=== PATIENT | male | born 1970 | race Caucasian/White ===

== ENCOUNTER 2018-11-06 10:19 | Outpatient (REF) | payer MEDICAID, SELFPAY ==
[2018-11-06 12:17] LABS: ALT 37 U/L (12-78); AST 18 U/L (15-37); Albumin 3.7 g/dL (3.4-5.0); Alkaline Phosphatase 68 U/L (46-116); Anion Gap 8.3 mmol/L (3-11); BUN 14 mg/dL (7-18); Bilirubin, Total 0.3 mg/dL (0.2-1.0); CO2 29.7 mmol/L (21.0-32.0); CREATININE 0.93 mg/dL (0.70-1.30); Calcium 8.9 mg/dL (8.5-10.1); Chloride 106 mmol/L (98-107); Cholesterol 208 mg/dL (50-200); Glucose 140 mg/dL (70-100); HDL Cholesterol 38 mg/dL (40-60); LDL CHOLESTEROL 141 mg/dL (<100); Potassium 4.1 mmol/L (3.5-5.1); Sodium 144 mmol/L (136-145); Total Protein 7.1 g/dL (6.4-8.2); Triglyceride 131 mg/dL (30-150)
== END 2018-11-06 10:39 ==
LOC: NCHCN 10:19
PROVIDERS: PCP Nurse Practitioner Family; Visit Provider Nurse Practitioner Family
DX: Z13.220 Encounter for screening for lipoid disorders (principal); Z13.228 Encounter for screening for other metabolic disorders; Z00.00 Encounter for general adult medical examination without abnormal findings
CPT/HCPCS: 80053; 80061; 83721

== ENCOUNTER 2019-03-13 00:56 | Outpatient (CLI) | payer MEDICAID, SELFPAY ==
--- NOTE | 2019-03-13 07:29 | DI.CT_ITS ---
SYMPTOM/DIAGNOSIS: ABD PAIN R10.9, S/P HERNIA REPAIR, MESH COMING THROUGH SKIN ABDOMEN AND PELVIC CT: 03/13 CT examination of the abdomen and pelvis was performed with a bolus infusion of 100 cc Omnipaque 350 and ingestion of dilute barium. Images obtained through the lung bases are unremarkable. The liver, spleen and pancreas appear normal. Gallbladder and bile ducts are CT normal. Adrenals and kidneys are unremarkable. Abdominal aorta is of normal diameter and no major vascular abnormality seen. No abdominal or pelvic adenopathy. Appendix is normal. No evidence of diverticulitis or bowel obstruction. The patient has reportedly had prior ventral hernia repair. Examination is compared with previous examination of 04/11/17. Note is again made of nonspecific subcutaneous radiodensities at the level of the umbilicus unchanged in appearance in comparison with the previous examination and consistent with scarring. The ventral mesh appears essentially unchanged in position in comparison with the previous examination. No evidence of herniation of abdominal contents. CONCLUSION: Stable appearance of repaired ventral hernia from 04/11/2017.
[2019-03-13] MEDS: Omnipaque 350 MG/ML 100 ML BTL IV (09:41)
[2019-03-13] MEDS: Breeza Beverage 473 ML BTL PO ×2 (09:41→09:42)
[2019-03-13] MEDS: Omnipaque 350 MG/ML 50 ML BTL PO (09:41)
== END 2019-03-13 01:16 ==
PROVIDERS: PCP Nurse Practitioner Family; Visit Provider Surgery
DX: R10.9 Unspecified abdominal pain (principal); Z98.890 Other specified postprocedural states
CPT/HCPCS: 74177; J3490; Q9967

== ENCOUNTER 2019-07-10 07:49 | Observation (INO) | payer MEDICAID, SELFPAY ==
[2019-07-10] VITALS (48 sets, daily range): BP systolic 113–163; BP diastolic 65–95; PULSE 87–101; RESP 11–35; TEMP 36–36.5; O2SAT 88–97
--- NOTE | 2019-07-10 07:56 | W.ED.GENAD ---
Discharge Plan Discharge Details Chief Complaint: Chest Pain Admit Date/Time: 07/10/19 10:50 Admit Provider: Milagros Pascual Attending Provider: Milagros Pascual Primary Care Provider: Chely Olivera ED Provider: Mary Osman Discharge Data Discharge Date/Time-TO BE ENTERED AT DEPARTURE: 07/10/19 11:54 Medical Decision Making Patient 40-year-old male presents today, brought in via EMS, after being found unresponsive on the floor. Patient presents to [facility] and was found to be on the floor at 1 point he was late for morning meeting. There was evidence of patient having potentially fallen out of bed as the bedside table had been knocked over. Patient denies any new pain. No headache. Patient is also endorsing substernal chest discomfort. Reports that he has had this historically. Was given nitro and aspirin prior to arrival. Is denying any chest pain at this point. He denies any alcohol or drug abuse. EKG reviewed by Dr. Kaur. Patient is in sinus rhythm with a rate of 99. No acute ischemic changes noted. Patient denies any illicit drug use, recent alcohol. However, on review of his notes, he was snorting Lyrica. When I questioned him further he reports is been over a month since he last used any Lyrica. This also started Concerta but states that was a one-time thing. Denies using this at all recently. He has not had any episodes like this since stopping the Lyrica. I have been questioning if this may be a seizure associated with abrupt cessation of Lyrica usage this seems to get a long period of time after having stopped. Review of the chart also shows that the patient was referred to [facility] for back pain. Patient is endorsing severe chronic pain which is making it difficult for him to sleep. Patient has not been taking his medications recently, reports that he did not have his metformin refilled and has not been taking this. On exam, patient is responsive, alert and oriented x3. appears fatigued. Normal cardiovascular exam. Neuro exam is intact. Not see any evidence of trauma at this time. No hemotympanum, pupils are equal round and reactive. No ecchymosis Glucose 300. My differential, initial concern is for possible seizure. However, this would not explain the substernal chest discomfort. Also considered cardiac or pulmonary source versus other including toxicologic or infectious. Plan for imaging and labs. Discussed CT with the radiologist. He advised that there is no acute abnormalities in the patient's head CT but does note a bony density in the right frontal sinus. Initially, he had question of this may be an osteoma but after discussing the patient's long history of snorting medications, he advises more consistent with a sinus lift. Review of the x-ray has been concerned for pneumonia. Will begin antibiotic treatment, hydrate the patient. As he is hypoxic and short of breath, I have considered admission. Patient does feel slightly improved after nebulizer. He continues to feel short of breath and does require O2. Patient down to 87% when on room air. Labs reviewed. No leukocytosis. Patient is anemic. D-dimer is within normal limits. No gap, normal electrolytes. Glucose is 320, A1c 9.7. Troponin is less than 0.05. No ketones in the urine. Over thousand milligrams per deciliter glucose in the urine. Patient is positive for tricyclic antidepressants in his UDS, otherwise negative, negative ethyl alcohol. Patient is on amitriptyline has been taking his medication as prescribed per his report. Consulted with hospitalist is requesting CPK. She is questioning, as MRI could potentially be a seizure, and is wanting to determine disposition to floor unit or ICU. CPK normal. Contacted the hospitalist again who agrees to admission for continued monitoring and evaluation. HPI General Mode of arrival: EMS. Date/Time Provider Initiated Documentation: 07/10/19 07:51. Limitations to Documentation: altered mental status (lapse of memory, clear currently). Information obtained by: patient, EMS and RN notes reviewed. History of Present Illness 48 year old M presents to the emergency department with the chief complaint of chest pain, cough, SOB, ALCALA, described as mild, with intensity rated at 3. Quality is described as aching, and is localized to the chest. Patient reports no radiation. Patient started experiencing this day(s) and it has been constant. No relieving factors improve symptom(s), No exacerbating factors reported . Patient notes chest pain, cough, headaches, loss of appetite, nausea/vomiting (endorses nausea, no vomiting) and shortness of breath; denies diaphoresis, fever/chills, rash and weakness. Patient did receive the following treatments prior to arrival, other (given nitro and ASA by EMS) Related Data Home Medications Medication Instructions Recorded Confirmed pregabalin 150 mg capsule 150 mg PO BID 03/04/19 07/10/19 amitriptyline 25 mg tablet 25 mg PO QHS 03/07/19 07/10/19 albuterol sulfate 2 puff INHALATION Q6H PRN 07/10/19 07/10/19 bupropion HCl 150 mg PO BID 07/10/19 07/10/19 metformin 500 mg PO DAILY 07/10/19 07/10/19 salmeterol 1 inh INHALATION BID 07/10/19 07/10/19 Allergies Allergy/AdvReac Type Severity Reaction Status Date / Time No Known Allergies Allergy Verified 07/10/19 08:08 General Stated Complaint: Chest Pain RIVKA: 3 Review of Systems Constitutional Constitutional: Reports as per HPI, Denies chills, Denies fever(s), Reports headache(s), Reports lethargy and Reports poor appetite Eyes Eyes: Denies change in vision ENT Ears, Nose, Mouth, and Throat: Denies dizziness and Reports headache(s) Cardiovascular Cardiovascular: Reports as per HPI, Reports chest pain, Reports chest pain at rest, Denies chest pain with activity, Denies pedal edema, Reports leg ulcers (chronic wounds on toes), Denies leg edema, Reports lightheadedness, Reports dyspnea and Reports dyspnea on exertion Respiratory Respiratory: Reports as per HPI, Reports chest congestion, Denies cough, Denies hemoptysis, Denies pain on inspiration, Denies pain with cough, Reports dyspnea, Reports dyspnea on exertion and Denies wheezing Gastrointestinal Gastrointestinal: Reports as per HPI, Denies abdominal pain, Denies diarrhea, Reports nausea and Denies vomiting Genitourinary Genitourinary: Denies system reviewed and no additional complaints, except as docu (denies change in urinary habits) Musculoskeletal Musculoskeletal: Reports as per HPI and Denies back pain Integumentary/Breasts Skin/Breast: Reports as per HPI and Denies rash Neurologic Neurologic: Reports as per HPI, Denies dizziness and Reports headache(s) Allergic/Immunologic Allergic/Immunologic: Denies wheezing [facility] Medical History (Updated 07/10/19 @ 18:00 by Milagros Pascual MD) COPD (chronic obstructive pulmonary disease) (Chronic) DJD (degenerative joint disease) (Chronic) GERD (gastroesophageal reflux disease) (Chronic) Hyperlipidemia (Acute) Hypertension (Chronic) Non-insulin dependent type 2 diabetes mellitus (Acute) Peripheral neuropathy (Acute) PVD (peripheral vascular disease) (Chronic) Tobacco abuse (Acute) Ventral hernia (Inactive) Surgical History (Updated 07/10/19 @ 17:43 by Milagros Pascual MD) H/O left knee surgery (Acute) History of open reduction and internal fixation (ORIF) procedure (Acute) LLE S/P hardware removal (Acute) LLE S/P hernia repair (Acute) x2 at [facility]- 20 years ago Family History (Updated 07/10/19 @ 17:44 by Milagros Pascual MD) Mother Diabetes Hypertension Father Diabetes Hypertension Cancer lung Paternal Grandmother Diabetes Other Heart disease Social History Smoking/Tobacco Use Status: Current every day Tobacco Type: cigarettes Smoking packs per day: 1.5 Smoking cigarettes per day: 30.0 Years smoked: 20 Smoking pack-years: 30.00 Alcohol Intake: never Drug use: Never Substance use type: does not use Exam Const General: cooperative, healthy appearing, comfortable, no acute distress and well developed Nutritional Appearance: well nourished and obese Orientation: alert, awake and oriented x3 HENMT Head: normal to inspection Ears: hearing grossly normal bilaterally Mouth: mucous membranes dry (dry) Eyes General: appearance normal, both eyes and all related structures Visual Ko: normal visual ko by confrontation Alignment and Position: alignment normal Periorbital: periorbital findings normal Eyelids: eyelids normal Conjunctivae: conjunctivae normal Chest Chest: normal inspection of the chest, normal palpation of entire chest wall and no crepitus Resp Effort & Inspection: normal respiratory effort, able to speak in complete sentences and no respiratory distress Auscultation: clear to auscultation bilaterally, no rales, no rhonchi and no wheezes Cardio Rate: regular rate Rhythm: regular rhythm Heart Sounds: S1 normal and S2 normal GI Inspection: normal to inspection, no edema and non-distended Palpation: soft, no hepatosplenomegaly, not firm, no guarding, not rigid and nontender Auscultation: normal bowel sounds Back/Spine/Pelvis Back: no CVA tenderness Thoracic/Lumbar Spine: thoracic and lumbar spine normal to inspection Skin General skin exam: no rashes or lesions noted Trauma: no lacerations or abrasions Neuro General: alert, awake and oriented x3 Cognition: normal cognition Speech: speech normal Gait: normal gait Extrem General: normal to inspection, normal capillary refill, no pedal edema, no calf tenderness and normal gait Right lower extremity: abnormal to inspection (wound to second toe, appears chroinic) Left lower extremity: abnormal to inspection (Posttraumatic scarring) Psych Appearance: grossly normal and well kempt Mental Status: mental status grossly normal Speech and Movement: speech and movement normal Course Vital Signs Vital signs: Vital Signs Temperature 36.5 C 07/10/19 07:50 Pulse 97 H 07/10/19 07:50 Respiratory Rate 28 H 07/10/19 07:50 Blood Pressure 163/95 H 07/10/19 07:50 Pulse Oximetry 90 L 07/10/19 07:50 Temperature 36.5 C 07/10/19 07:50 Temperature Source Temporal Artery Scan 07/10/19 07:50 Pulse 97 H 07/10/19 07:50 Respiratory Rate 28 H 07/10/19 07:50 Blood Pressure 163/95 H 07/10/19 07:50 Blood Pressure Position Supine 07/10/19 07:50 Pulse Oximetry 90 L 07/10/19 07:50 Oxygen Delivery Method Room Air 07/10/19 07:50 Oxygen Flow Rate 0 07/10/19 07:50 Pain Level 3 07/10/19 07:50
[2019-07-10 08:27] LABS: Abs Immature Grans 0.02 k/cumm (0.0-0.09); Absolute Basophil Count 0.02 k/cumm (0.0-0.2); Absolute Eosinophil Count 0.07 k/cumm (0.0-0.7); Absolute Lymphocyte Count 1.28 k/cumm (1.2-3.4); Absolute Monocyte Count 0.45 k/cumm (0.11-0.7); Absolute Neutrophil Count 6.15 k/cumm (1.2-6.7); Basophils % 0.3; Eosinophils % 0.9; HCT 51.3 % (40.0-50.0); HGB 17.5 g/dL (13.5-17.5); Immature Grans % 0.3 %; Mean Corp. HGB Concentration 34.1 g/dL (32.0-36.0); Mean Corpuscular Hemoglobin 28.7 pg (27.0-33.0); Mean Corpuscular Volume 84.1 fL (80-95); Monocytes % 5.6; Neutrophils % 76.9; Platelet Count 192 x1000/uL (130-400); RBC Distribution Width 15.8 % (11.8-14.1); White Blood Cell Count 7.99 k/cumm (4.4-10.8)
[2019-07-10 08:44] LABS: Anisocytosis 1+; Polychromasia Present
[2019-07-10 08:45] LABS: ALT 39 U/L (16-63); AST 15 U/L (15-37); Albumin 3.9 g/dL (3.4-5.0); Alkaline Phosphatase 87 U/L (46-116); Anion Gap 10.4 mmol/L (3-11); BUN 14 mg/dL (7-18); Bilirubin, Total 0.5 mg/dL (0.2-1.0); CO2 28.6 mmol/L (21.0-32.0); CREATININE 0.79 mg/dL (0.70-1.30); Chloride 100 mmol/L (98-107); Diff Comment RBC Morph Reviewed; Glucose 320 mg/dL (74-106); Magnesium 1.8 mg/dL (1.8-2.4); Potassium 3.8 mmol/L (3.5-5.1); Sodium 139 mmol/L (136-145); Total Protein 8.2 g/dL (6.4-8.2); Troponin I < 0.05 ng/Ml (<0.06)
--- NOTE | 2019-07-10 08:46 | DI.RAD_ITS ---
EXAM: XR CHEST 2V PA LATERAL CLINICAL HISTORY: cough, SOB TECHNIQUE: COMPARISON: No exams were available for comparison FINDINGS: The heart is not enlarged. No focal lobar consolidation but there is is a suggestion of patchy incre ased intrapulmonary markings in the perihilar region bilaterally, consider viral pneumonia or broncho pneumonia. No pleural effusion. No pneumothorax. Mediastinal contour is grossly unremarkable. IMPRESSION: Question perihilar infiltrates, consider viral pneumonia or bronchopneumonia.
--- NOTE | 2019-07-10 08:46 | DI.CT_ITS ---
EXAM: CT HEAD WO CLINICAL HISTORY: ALCALA, AMS TECHNIQUE: Noncontrast cranial CT was performed. COMPARISON: No exams were available for comparison FINDINGS: Ventricular system is normal in appearance. No evidence of acute intracranial hemorrhage, mass eff ect, or midline shift. The orbital structures appear intact. Incidental note is made of right front al osteoma versus Sinolith. Otherwise paranasal sinuses and mastoid air cells appear clear as visual ized. Temporal bone structures appear intact. IMPRESSION: No evidence of acute intracranial process.
[2019-07-10 09:08] LABS: D-Dimer 303 ng/mlFEU (<500)
[2019-07-10] MEDS: Albuterol/Ipratropium 3 ML UPD VIAL UPD ×3 (09:08→19:48)
[2019-07-10 09:15] LABS: ETHANOL BLOOD < 3.0 mg/dL (<3)
[2019-07-10] MEDS: Normal Saline 1,000 ML 1000 ML IV (09:25)
[2019-07-10 09:28] LABS: Bilirubin Negative (Negative); Blood Negative (Negative); Clarity Clear (Clear); Glucose >=1000 mg/dL (Negative); Ketones Negative (Negative); Leukocyte Esterase Negative (Negative); Nitrite Negative (Negative); Urobilinogen 0.2 EU/dL (Up TO 0.2)
[2019-07-10] MEDS: cefTRIAXone 1 GM/50 ML BAG IVPB (09:38)
[2019-07-10] MEDS: Doxycycline Hyclate 100 MG CAP PO (09:38)
[2019-07-10 09:48] LABS: Hemoglobin A1C 9.7 % (3.8-5.6)
[2019-07-10] MEDS: Nicotine 21 MG/24 HR PATCH TD (09:48)
[2019-07-10 10:10] LABS: *AMPHETAMINES SCREEN URINE Negative (Negative); *BARBITURATES SCREEN URINE Negative (Negative); *BENZODIAZEPINES SCREEN URINE Negative (Negative); Cannabinoids THC Negative (Negative); Cocaine Screen,Urine Negative (Negative); METHADONE URINE SCREEN Negative (Negative); OPIATES URINE SCREEN Negative (Negative)
[2019-07-10 10:13] LABS: Tricyclic Antidepressants POSITIVE (Negative)
[2019-07-10 10:33] LABS: Creatine Kinase 137 U/L (39-308)
[2019-07-10 11:40] LABS: Troponin I < 0.05 ng/Ml (<0.06)
[2019-07-10] MEDS: Enoxaparin 40 MG/0.4 ML SYR SC (13:03)
[2019-07-10] MEDS: Insulin Aspart 300 UNITS/3 ML PEN SC ×3 (13:04→22:28)
[2019-07-10] MEDS: Normal Saline 1,000 ML 150 ML IV ×2 (13:05→19:36)
--- NOTE | 2019-07-10 17:32 | HPE_ITS ---
Date of service: 07/10/19 Time of Service: 16:45 Assessment and Plan Assessment and plan (1) CAP (community acquired pneumonia): Status: Acute Assessment and plan: Treat with empiric ceftriaxone, doxycycline, antitussives, steroids, nebs. Await results of blood and sputum cultures. (2) Acute exacerbation of chronic obstructive pulmonary disease (COPD): Status: Acute Assessment and plan: With hypoxia. As above - wean O2 as tolerated (3) Syncope and collapse: Status: Acute Assessment and plan: Likely vaso-vagal/post-tussive. No ACS. Monitor on tele. Obtaining echo. (4) Peripheral neuropathy: Status: Acute Assessment and plan: Trial gabapentin (5) Non-insulin dependent type 2 diabetes mellitus: Status: Acute Assessment and plan: Hold metformin. Cover with SSI, carb consistent diet (6) DVT prophylaxis: Status: Acute Assessment and plan: Lovenox (7) Discharge planning issues: Status: Acute Assessment and plan: Full code History of Present Illness History of Present Illness Chief Complaint: I don't know how I got here Narrative: Mr Swan is a 48 year old male with PMHx of non-oxygen dependent COPD, NIDDM2 with neuropathy, hypertension, GERD, and PVD, who was found this morning unresponsive on the floor by one of the residents of his intermediate house. The last thing he remembers going to bed last night. He does not have a history of seizures, had not bitten his tongue or had incontinence. He has syncopized after coughing in the past. The patient states that he has been sick for a couple of weeks, describes subjective fevers, chills, runny nose, sore throat, cough productive of brownish sputum, shortness of breath, abdominal pain from coughing. His other complaints are chest pain that he had yesterday for about an hour on the left side of his chest which felt like burning. He also reports sondra re pain from his neuropathy for which he used to take lyrica, but it was discontinued about a month ago because he was abusing it and snorting it. The patient denies any other substance abuse issues and states he had not snorted lyrica in a month. He continues to smoke up to 2 ppd. In the ED, he was found to be hypoxic with O2 sats of 88% on room air. He was found to have perihilar infiltrates on CXR. We were asked to admit the patient for treatment of pneumonia and COPD exacerbation with hypoxia following a likely syncopal event. Review of Systems Narrative: 12 systems reviewed. Pertinent positives and negatives are as per HPI. [facility] Medical History (Updated 07/10/19 @ 18:00 by Milagros Pascual MD) COPD (chronic obstructive pulmonary disease) (Chronic) DJD (degenerative joint disease) (Chronic) GERD (gastroesophageal reflux disease) (Chronic) Hyperlipidemia (Acute) Hypertension (Chronic) Non-insulin dependent type 2 diabetes mellitus (Acute) Peripheral neuropathy (Acute) PVD (peripheral vascular disease) (Chronic) Tobacco abuse (Acute) Ventral hernia (Inactive) Surgical History (Updated 07/10/19 @ 17:43 by Milagros Pascual MD) H/O left knee surgery (Acute) History of open reduction and internal fixation (ORIF) procedure (Acute) LLE S/P hardware removal (Acute) LLE S/P hernia repair (Acute) x2 at [facility]- 20 years ago Family History (Updated 07/10/19 @ 17:44 by Milagros Pascual MD) Mother Diabetes Hypertension Father Diabetes Hypertension Cancer lung Paternal Grandmother Diabetes Other Heart disease Social History Smoking/Tobacco Use Status: Current every day Tobacco Type: cigarettes Smoking packs per day: 1.5 Smoking cigarettes per day: 30.0 Years smoked: 20 Smoking pack-years: 30.00 Alcohol Intake: never Drug use: Never Substance use type: does not use Meds Home Medications and Allergies Home Medications Medication Instructions Recorded Confirmed Type pregabalin 150 mg capsule 150 mg PO BID 03/04/19 07/10/19 History amitriptyline 25 mg tablet 25 mg PO QHS 03/07/19 07/10/19 History albuterol sulfate 2 puff INHALATION Q6H PRN 07/10/19 07/10/19 History bupropion HCl 150 mg PO BID 07/10/19 07/10/19 History metformin 500 mg PO DAILY 07/10/19 07/10/19 History salmeterol 1 inh INHALATION BID 07/10/19 07/10/19 History Allergies Allergy/AdvReac Type Severity Reaction Status Date / Time No Known Allergies Allergy Verified 07/10/19 08:08 Exam Narrative Exam Narrative: General: Very pleasant obese male, appears sick, no visible dyspnea/tachypnea Neurological: A&Ox3, no focal deficits Psychiatric: mildly anxious Skin: no bruises/rashes; sanders HEENT: Atraumatic, normocephalic, EOMI, dry MM, mild pharyngeal erythema, no submandibular or cervical lymphadenopathy, no goiter or JVD, large neck diameter Cardiovascular: RRR, no m/r/g Lungs: rhonchi on expiration B Gastrointestinal: soft, nontender, nondistended Genitourinary: deferred Extremities: no e/c/c BLE's, 2+ pedal pulses B Results Imaging Additional studies: CXR: Question perihilar infiltrates, consider viral pneumonia or bronchopneumonia. CT head: No evidence of acute intracranial process. EKG: HR 99, NSR, nonspecific ST-T changes Labs Result diagrams: 07/10/19 07:42 07/10/19 07:42 Labs: Laboratory Results - last 24 hr 07/10/19 07/10/19 07/10/19 07:42 07:42 07:42 WBC 7.99 RBC 6.10 H Hgb 17.5 Hct 51.3 H MCV 84.1 MCH 28.7 MCHC 34.1 RDW 15.8 H Plt Count 192 MPV 9.0 Immature Gran % 0.3 Neutrophils % 76.9 Lymphocytes % 16.0 Monocytes % 5.6 Eosinophils % 0.9 Basophils % 0.3 Absolute Neutrophils 6.15 Absolute Lymphocytes 1.28 Absolute Monocytes 0.45 Absolute Eosinophils 0.07 Absolute Basophils 0.02 Differential Comment Rbc morph reviewed RBC Morphology See below Polychromasia Present Anisocytosis 1+ D-Dimer 303 Sodium 139 Potassium 3.8 Chloride 100 Carbon Dioxide 28.6 Anion Gap 10.4 BUN 14 Creatinine 0.79 Estimated GFR/1.73 m2 >= 60.00 Glucose 320 H Hemoglobin A1c Calcium 9.0 Magnesium 1.8 Total Bilirubin 0.5 AST 15 ALT 39 Alkaline Phosphatase 87 Creatine Kinase Troponin I < 0.05 Total Protein 8.2 Albumin 3.9 Urine Color Urine Clarity Urine pH Ur Specific Hermleigh Urine Protein Urine Ketones Urine Blood Urine Nitrite Urine Bilirubin Urine Urobilinogen Ur Leukocyte Esterase Urine Glucose Urine Opiates Screen Urine Methadone Screen Ur Barbiturates Screen Ur Tricyclics Screen Ur Amphetamines Screen U Benzodiazepines Scrn Urine Cocaine Screen Ur THC Screen Ethyl Alcohol Path Cons Comment 07/10/19 07/10/19 07/10/19 07:42 07:42 08:05 WBC RBC Hgb Hct MCV MCH MCHC RDW Plt Count MPV Immature Gran % Neutrophils % Lymphocytes % Monocytes % Eosinophils % Basophils % Absolute Neutrophils Absolute Lymphocytes Absolute Monocytes Absolute Eosinophils Absolute Basophils Differential Comment RBC Morphology Polychromasia Anisocytosis D-Dimer Sodium Potassium Chloride Carbon Dioxide Anion Gap BUN Creatinine Estimated GFR/1.73 m2 Glucose Hemoglobin A1c 9.7 H Calcium Magnesium Total Bilirubin AST ALT Alkaline Phosphatase Creatine Kinase 137 Troponin I Total Protein Albumin Urine Color Urine Clarity Urine pH Ur Specific Herm[place] Urine Protein Urine Ketones Urine Blood Urine Nitrite Urine Bilirubin Urine Urobilinogen Ur Leukocyte Esterase Urine Glucose Urine Opiates Screen Urine Methadone Screen Ur Barbiturates Screen Ur Tricyclics Screen Ur Amphetamines Screen U Benzodiazepines Scrn Urine Cocaine Screen Ur THC Screen Ethyl Alcohol < 3.0 Path Cons Comment 07/10/19 07/10/19 07/10/19 09:11 09:11 11:03 WBC RBC Hgb Hct MCV MCH MCHC RDW Plt Count MPV Immature Gran % Neutrophils % Lymphocytes % Monocytes % Eosinophils % Basophils % Absolute Neutrophils Absolute Lymphocytes Absolute Monocytes Absolute Eosinophils Absolute Basophils Differential Comment RBC Morphology Polychromasia Anisocytosis D-Dimer Sodium Potassium Chloride Carbon Dioxide Anion Gap BUN Creatinine Estimated GFR/1.73 m2 Glucose Hemoglobin A1c Calcium Magnesium Total Bilirubin AST ALT Alkaline Phosphatase Creatine Kinase Troponin I < 0.05 Total Protein Albumin Urine Color Yellow Urine Clarity Clear Urine pH 6.0 Ur Specific Hermleigh 1.020 Urine Protein Negative Urine Ketones Negative Urine Blood Negative Urine Nitrite Negative Urine Bilirubin Negative Urine Urobilinogen 0.2 Ur Leukocyte Esterase Negative Urine Glucose >=1000 H Urine Opiates Screen Negative Urine Methadone Screen Negative Ur Barbiturates Screen Negative Ur Tricyclics Screen Positive A Ur Amphetamines Screen Negative U Benzodiazepines Scrn Negative Urine Cocaine Screen Negative Ur THC Screen Negative Ethyl Alcohol Path Cons Comment Last Vital Signs Temp 36.0 C L 07/10/19 15:36 Pulse 87 07/10/19 15:36 Resp 18 07/10/19 15:36 BP 124/72 07/10/19 15:36 Pulse Ox 95 07/10/19 15:36
[2019-07-10] MEDS: Pantoprazole 40 MG VIAL IVP (18:46)
[2019-07-10] MEDS: Normal Saline Flush 10 ML SYR IVP (18:47)
[2019-07-10] MEDS: methylPREDNISolone SUCC 125 MG VIAL 60 MG IVP (18:47)
--- NOTE | 2019-07-10 19:15 | CMPROGNOTE_ITS ---
- If Service Date Differs Date of service: 07/10/19 Time of Service: 19:15 Care Management Progress Note CM met with Satnam's case aide in the community (AMEYA), Basilio Bhatti ([phone]), who is listed on Satnam's HIPPA. 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 His field crop technical officer is Alton Davenport (also on HIPPA). Basilio would like to be updated on Satnam's medical status. Basilio reported that Satnam was found unconscious and unresponsive this morning at the [facility] and was transported to [facility] by ambulance. He reported that Satnam is a heavy smoker. He also reported that Satnam sees a chronic pain specialist, as well as a mental health and substance abuse counselor in the community, Claudia Diallo. Basilio will not be available after noon on Sunday, but if Satnam is discharged home he offered phone numbers to call to set up transport. The daytime transport number is [phone]. The after hours phone number is [phone].
--- NOTE | 2019-07-10 19:15 | PDOC.CMPRO ---
- If Service Date Differs Date of service: 07/10/19 Time of Service: 19:15 Care Management Progress Note CM met with Satnam's block and case maker in the community (AMEYA), Basilio Bhatti ([phone]), who is listed on Satnam's HIPPA. 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 His humane officer is Alton Davenport (also on HIPPA). Basilio would like to be updated on Satnam's medical status. Basilio reported that Satnam was found unconscious and unresponsive this morning at the [facility] and was transported to [facility] by ambulance. He reported that Satnam is a heavy smoker. He also reported that Satnam sees a chronic pain specialist, as well as a mental health and substance abuse counselor in the community, Claudia Diallo. Basilio will not be available after noon on Sunday, but if Satnam is discharged home he offered phone numbers to call to set up transport. The daytime transport number is [phone]. The after hours phone number is [phone].
[2019-07-10] MEDS: Budesonide/Formoterol 160/4.5 6 GM 60 PUFF INH IH (19:46)
[2019-07-10] MEDS: Gabapentin 100 MG CAP PO (19:47)
[2019-07-10] MEDS: Benzonatate 100 MG CAP PO (19:47)
[2019-07-10] MEDS: Pregabalin 50 MG CAP 150 MG PO (19:47)
[2019-07-10] MEDS: buPROPion-CR 150 MG TABCR PO (19:48)
[2019-07-10] MEDS: guaiFENesin 600 MG TABCR PO (19:48)
[2019-07-10 20:56] LABS: Troponin I < 0.05 ng/Ml (<0.06)
[2019-07-10] MEDS: DOXYCYCLINE 100 MG in Normal Saline 100 ML IVPB (22:27)
[2019-07-10] MEDS: Amitriptyline 25 MG TAB PO (22:29)
[2019-07-11] VITALS (12 sets, daily range): BP systolic 117–153; BP diastolic 64–84; PULSE 74–106; RESP 8–24; TEMP 35.6–36.6; O2SAT 91–98
[2019-07-11] MEDS: Albuterol/Ipratropium 3 ML UPD VIAL UPD ×4 (02:47→17:51)
[2019-07-11] MEDS: Normal Saline 1,000 ML 150 ML IV ×3 (02:48→17:50)
[2019-07-11] MEDS: methylPREDNISolone SUCC 125 MG VIAL 60 MG IVP ×2 (05:07→17:50)
[2019-07-11 07:10] LABS: Abs Immature Grans 0.02 k/cumm (0.0-0.09); Absolute Basophil Count 0.01 k/cumm (0.0-0.2); Absolute Eosinophil Count 0.01 k/cumm (0.0-0.7); Absolute Lymphocyte Count 0.63 k/cumm (1.2-3.4); Absolute Monocyte Count 0.12 k/cumm (0.11-0.7); Absolute Neutrophil Count 9.73 k/cumm (1.2-6.7); Basophils % 0.1; Eosinophils % 0.1; HCT 45.3 % (40.0-50.0); HGB 15.9 g/dL (13.5-17.5); Immature Grans % 0.2 %; Mean Corp. HGB Concentration 35.1 g/dL (32.0-36.0); Mean Corpuscular Hemoglobin 29.2 pg (27.0-33.0); Mean Corpuscular Volume 83.1 fL (80-95); Monocytes % 1.1; Neutrophils % 92.5; Platelet Count 175 x1000/uL (130-400); RBC 5.45 m/cumm (4.50-6.00); RBC Distribution Width 14.9 % (11.8-14.1); White Blood Cell Count 10.52 k/cumm (4.4-10.8)
[2019-07-11 07:21] LABS: Anion Gap 11.6 mmol/L (3-11); BUN 16 mg/dL (7-18); CO2 25.4 mmol/L (21.0-32.0); CREATININE 0.77 mg/dL (0.70-1.30); Calcium 8.7 mg/dL (8.5-10.1); Chloride 100 mmol/L (98-107); Glucose 317 mg/dL (74-106); Magnesium 1.8 mg/dL (1.8-2.4); Potassium 3.9 mmol/L (3.5-5.1); Sodium 137 mmol/L (136-145)
--- NOTE | 2019-07-11 07:30 | DI.US_ITS ---
APPROVED REPORT EXAM: Comprehensive 2D, Doppler, and color-flow Echocardiogram Patient Location: In-Patient Deep Submergence Vehicle Crewmember: Molly Shen RDCS (AE) Rhythm: NSR Indications: syncope vs. seizure Conclusion Left Ventricle : The left ventricle is normal. Left ventricular systolic function is normal. There is normal left ventricular wall thickness. There is normal LV segmental wall motion. The left ventricu lar diastolic function is normal. LVEF is 55-59%. Right Ventricle : The right ventricle is normal size. The right ventricular systolic function is norm al. Atria : Left atrium is mildly dilated. The right atrium size is normal. Aortic Valve : Aortic valve is trileaflet. Aortic valve leaflets are mildly thickened. No aortic regu rgitation is present. There is no aortic valvular stenosis. Mitral Valve : Mitral valve leaflets are mildl to moderately thickened. Trace mitral regurgitation. No evidence of mitral valve stenosis. Tricuspid Valve : The tricuspid valve is normal in structure. Trace tricuspid regurgitation. IVC: IVC is normal in size and collapses >50% with inspiration. There is no prior echocardiogram available for comparison. Wall motion Left Ventricle The left ventricle is normal. Left ventricular systolic function is normal. There is normal left vent ricular wall thickness. There is normal LV segmental wall motion. The left ventricular diastolic func tion is normal. LVEF is 55-59%. Right Ventricle The right ventricle is normal size. The right ventricular systolic function is normal. Estimated RVSP is 27-30mmHg Atria Left atrium is mildly dilated. The right atrium size is normal. Aortic Valve Aortic valve is trileaflet. Aortic valve leaflets are mildly thickened. There is no aortic valvular s tenosis. No aortic regurgitation is present. Mitral Valve Mitral valve leaflets are mildl to moderately thickened. No evidence of mitral valve stenosis. Trace mitral regurgitation. Tricuspid Valve The tricuspid valve is normal in structure. Trace tricuspid regurgitation. Great Vessels The aortic root size is normal. The ascending aorta size is normal. IVC is normal in size and collaps es >50% with inspiration. Pericardium A trivial pericardial effusion was identified 2D Dimensions IVSd 1.00 cm M: 0.6-1.2 LV EDV A2C 124.40 mL PWd 1.00 cm M: 0.6 - 1.2 LV EDV A4C 102.20 mL LVDd 5.60 cm M: 4.2 - 5.8 LA Volume Index A2C 22.91 mL/m2 LVDs 3.75 cm M: 2.5 - 4.0 LA Volume Index A4C 34.32 mL/m2 Aortic Root 3.55 cm M: 3.1 - 3.7 LA Volume Index Biplane 28.70 mL/m2 RVID Base (AP4) 3.60 cm (M/F) 2.5-4.1 LA Area A4C 21.40 cm2 RA Area A4C 16.81 cm2 LA Area A2C 17.89 cm2 LVOT 2.00 cm (M/F) 1.5-2.5 EF AP4 60.76 % Ascending Aorta 3.11 cm M: 2.6 - 3.4 EF AP2 53.22 % LVEF (Teich) 61.14 % EF BP 58.83 % LVEF (Noland's) 58.83 % M: 52 - 72 LV Volume 87.16 mL M: 62 - 150 LV Volume Index 37.56 mL/m2 M: 34 - 74 FS 33.20 % LV Diastology E/A Ratio 0.7 MED E' 0.09 (>0.07 m/s) LV E/e MED 7.75 (<14) LAT E' 0.09 (>0.1 m/s) LV E/e LAT 8.05 (<14) Pulm Vein s 0.50 m/s Aortic Valve LVOT Area 3.26 cm2 LVOT Vmax 0.91 m/s LVOT Mean Jair. 0.68 m/s LVOT Peak Gr. 3.3 mmHg LVOT Mean Gr. 2.0 mmHg AoV Area/ BSA (Vmax) 0.92 cm2/m2 LVOT VTI 0.167 m AoV Vmax 1.39 (0.5-1.3 m/s) ADAL Mean Jair. Index 0.90 cm2/m2 AoV Mean Jair. 1.07 m/s AoV Peak Grad 7.7 mmHg AoV Mean Grad 4.9 (<5 mmHg) AoV VTI 0.274 (0.18-0.25 m) AoV Area VTI 2.20 (2.5-4.5 cm2) AoV Area/ BSA (VTI) 0.95 cm/m2 Mitral Valve MV E Max Jair. 0.69 (0.4-1.3 m/s) MVA VTI 5.12 (4.0-6.0 cm2) MV A Velocity 0.95 (0.4-1.3 m/s) E/A Ratio 0.71 Pulmonary Valve RVOT Peak Gr. 2.07 mmHg RVOT Peak Jair. 0.72 m/s RVOT Mean Gr. 0.95 mmHg RVOT VTI 0.05 m Tricuspid Valve TR P. Velocity 2.61 m/s TV Regurg Vmax 2.61 m/s RAP Estimate 3.00 mmHg RVSP 30.19 mmHg TR P. Gradient 27.15 mmHg
[2019-07-11] MEDS: guaiFENesin 600 MG TABCR PO ×2 (09:00→19:29)
[2019-07-11] MEDS: buPROPion-CR 150 MG TABCR PO ×2 (09:00→19:29)
[2019-07-11] MEDS: Budesonide/Formoterol 160/4.5 6 GM 60 PUFF INH IH ×2 (09:00→19:28)
[2019-07-11] MEDS: cefTRIAXone 1 GM/50 ML BAG IVPB (09:00)
[2019-07-11] MEDS: Pregabalin 50 MG CAP 150 MG PO ×2 (09:00→19:30)
[2019-07-11] MEDS: Benzonatate 100 MG CAP PO ×3 (09:01→19:29)
[2019-07-11] MEDS: Insulin Aspart 300 UNITS/3 ML PEN SC ×4 (09:01→21:52)
[2019-07-11] MEDS: Gabapentin 100 MG CAP PO ×3 (09:01→19:29)
[2019-07-11] MEDS: DOXYCYCLINE 100 MG in Normal Saline 100 ML IVPB ×2 (10:11→21:51)
--- NOTE | 2019-07-11 10:16 | INITIAL_ITS ---
- If Service Date Differs Date of service: 07/11/19 Time of Service: 10:16 Care Management Initial Assess REASON FOR HOSPITALIZATION:: Syncope vs seizure; CAP vs viral pneumonia. PAST MEDICAL HISTORY/PAST SURGICAL HISTORY:: Medical History: COPD (chronic obs tructive pulmonary disease) (Chronic),. DJD (degenerative joint disease) (Chronic), GERD (gastroesophageal reflux disease) (Chronic), Hyperlipidemia (Acute), Hypertension (Chronic),. Non-insulin dependent type 2 diabetes mellitus (Acute), Peripheral neuropathy (Acute), PVD (peripheral vascular disease) (Chronic), Tobacco abuse (Acute), and Ventral hernia (Inactive). Surgical History: H/O left knee surgery (Acute), History of open reduction and internal fixation (ORIF) procedure (Acute) - LLE, S/P hardware removal (Acute) - LLE, and S/P hernia repair (Acute) - x2 at [facility]- 20 years ago. PREVIOUS FUNCTIONAL STATUS/SOCIAL/FAMILY SUPPORTS:: Satnam lives in [facility] at the [facility]. 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 Satnam has three adult children and three grandchildren, all of whom live in [place]. He names his mom who resides in [place] as a source of support for him. Satnam sees PIERCE Camarena, in the community for mental health and substance abuse therapy. Satnam is independent with ADLs at baseline. CURRENT FUNCTIONAL STATUS:: Satnam is lying in bed watching television when CM comes to meet with him. He is pleasant and easily engages in conversation. He shares he hopes to get his own apartment soon. He also talks about working at the [employer] and says he really enjoys working in the kitchen. CM will continue to follow. ADVANCE DIRECTIVES:: None on file. Has patient been provided with information about the portal?: Yes Did the patient sign up for the portal?: No CODE STATUS:: Full Code INSURANCE COVERAGE / FINANCIAL ISSUES:: Medicaid. CURRENT HOME/COMMUNITY SERVICES/EQUIPMENT:: Satnam sees PIERCE Camarena, for mental health and substance abuse therapy. Satnam also has a digital marketing officer (Alton Tran) and supports through the [facility]. Satnam states he does not have any medical equipment. PRIMARY CARE PHYSICIAN:: ENRIQUE Valera ([facility]) POTENTIAL DISCHARGE NEEDS:: Follow-up appointment with primary care physician. PATIENT/FAMILY EDUCATION NEEDS:: Discharge plan, limitations, follow-up plan of care, including Ask Me Three and self-management. ANTICIPATED BARRIERS TO DISCHARGE:: None anticipated at this time. TRANSPORTATION:: Satnam will be transported back to the [facility] by [facility] when ready ([phone]). PLAN:: Satnam will be discharged back to the [facility] when medically cleared by provider. Anticipate no new services at time of discharge. CM will continue to follow.
--- NOTE | 2019-07-11 10:50 | W.NUTCONSULT ---
Date of service: 07/11/19 Time of Service: 10:50 Nutritional Consult ASSESSMENT: 48 year old male admitted with COPD, PNA, syncope with poorly controlled NIDDM. BMI indicates class 1 obesity. Also dx with HTN, hyperlipidemia, PVD. At high nutritional risk in view of mulitple co morbidities. Referred to outpatient nutrition counseling. CHO diet appropriate. NUTRITIONAL DIAGNOSIS: NIDDM, class 1 obesity INTERVENTION: Dm consult received. CDE to provide education. MONITORING AND EVALUATION: blood sugars, weight and po intake Time Spent in Nutritional Counseling and Treatment: 0 time spent face to face
[2019-07-11] MEDS: Insulin Glargine 300 UNITS/3 ML PEN 10 UNITS SC ×2 (12:02→21:53)
[2019-07-11] MEDS: Enoxaparin 40 MG/0.4 ML SYR SC (13:28)
[2019-07-11] MEDS: Normal Saline Flush 10 ML SYR IVP ×3 (17:49→21:51)
[2019-07-11] MEDS: Pantoprazole 40 MG VIAL IVP (17:50)
--- NOTE | 2019-07-11 17:55 | W.PM.PROGNOT ---
Date of Service Date of service: 07/11/19 Time of Service: 16:00 Assessment and Plan Assessment and plan (1) CAP (community acquired pneumonia): Status: Acute Assessment and plan: Treat with empiric ceftriaxone, doxycycline, antitussives. Start to taper steroids and change to PO. Repeat CXR in am. (2) Acute exacerbation of chronic obstructive pulmonary disease (COPD): Status: Acute Assessment and plan: With hypoxia. As clinically improving, try to wean O2 as tolerated. Check ambulatory pulse ox in am. (3) Syncope and collapse: Status: Acute Assessment and plan: Likely vaso-vagal/post-tussive. No ACS. Echo unremarkable. D/c tele. (4) Peripheral neuropathy: Status: Acute Assessment and plan: Continue gabapentin (5) Non-insulin dependent type 2 diabetes mellitus: Status: Acute Assessment and plan: Hold metformin. Added long acting insulin today due to steroid-induced hyperglycemia. Increase sliding scale to moderate. (6) DVT prophylaxis: Status: Acute Assessment and plan: Lovenox (7) Discharge planning issues: Status: Acute Assessment and plan: Full code Possible discharge home tomorrow. Subjective Subjective Interval history since last seen: Denies dizziness, states chest pain only happens when he coughs. Shortness of breath is better. Cough is getting better. Denies n/v. Tele with SR. Feels he might be able to go home tomorrow. Exam Narrative Exam Narrative: General: Very pleasant obese male, generally looks better, no visible dyspnea/tachypnea HEENT: Atraumatic, normocephalic, EOMI, MMM Cardiovascular: RRR, no m/r/g Lungs: coarse breath sounds B, barely if any rhonchi; sounds much improved from yesterday Gastrointestinal: soft, nontender, nondistended Extremities: no e/c/c BLE's, 2+ pedal pulses B Objective Objective Clinical Data: Abnormal lab results 07/11/19 07/11/19 Range/Units 06:00 06:00 RDW 14.9 H (11.8-14.1) % Absolute Neutrophils 9.73 H (1.2-6.7) k/cumm Absolute Lymphocytes 0.63 L (1.2-3.4) k/cumm Anion Gap 11.6 H (3-11) mmol/L Glucose 317 H (74-106) mg/dL Vital Signs Temperature 36.5 C 07/11/19 15:47 Temperature Source Temporal Artery Scan 07/11/19 15:47 Pulse 105 H 07/11/19 15:47 Pulse Rhythm Regular 07/11/19 15:00 Pulse 94 H 07/10/19 11:50 Respiratory Rate 24 07/11/19 15:47 Respiratory Effort Non-Labored 07/11/19 15:00 Respiratory Depth Normal 07/11/19 15:00 Respiratory Pattern Normal 07/11/19 15:00 Blood Pressure 128/78 07/11/19 15:47 Blood Pressure Mean 79 07/10/19 11:45 Blood Pressure Position Supine 07/10/19 07:50 Pulse Oximetry 95 07/11/19 15:47 Oxygen Delivery Method Nasal Cannula 07/11/19 15:47 Oxygen Flow Rate 2.5 07/11/19 15:47 Pain Level 3 07/11/19 15:47 Intake & Output 07/10/19 07/11/19 07/11/19 23:59 11:59 23:59 Intake Total 1745.0 / 2795.0 1860 / 3422.5 1562.5 / 3422.5 Output Total 1250 / 1250 1900 / 2350 450 / 2350 Balance 495.0 / 1545.0 -40 / 1072.5 1112.5 / 1072.5 Weight 111.6 kg Intake: IV 1505.0 / 2555.0 1620 / 2492.5 872.5 / 2492.5 Oral 240 / 240 240 / 930 690 / 930 Output: Urine 1250 / 1250 1900 / 2350 450 / 2350 Other: Urine Color Straw Yellow Yellow Urine Appearance Clear Clear Clear Urine Odor Strong Strong Voiding Methods Urinal Urinal Urinal Laboratory Results WBC 10.52 k/cumm (4.4-10.8) D 07/11/19 06:00 RBC 5.45 m/cumm (4.50-6.00) 07/11/19 06:00 Hgb 15.9 g/dL (13.5-17.5) 07/11/19 06:00 Hct 45.3 % (40.0-50.0) 07/11/19 06:00 MCV 83.1 fL (80-95) 07/11/19 06:00 MCH 29.2 pg (27.0-33.0) 07/11/19 06:00 MCHC 35.1 g/dL (32.0-36.0) 07/11/19 06:00 RDW 14.9 % (11.8-14.1) H 07/11/19 06:00 Plt Count 175 x1000/uL (130-400) 07/11/19 06:00 MPV 9.0 fL (8.0-11.0) 07/11/19 06:00 Immature Gran % 0.2 % 07/11/19 06:00 Neutrophils % 92.5 07/11/19 06:00 Lymphocytes % 6.0 07/11/19 06:00 Monocytes % 1.1 07/11/19 06:00 Eosinophils % 0.1 07/11/19 06:00 Basophils % 0.1 07/11/19 06:00 Absolute Neutrophils 9.73 k/cumm (1.2-6.7) H 07/11/19 06:00 Absolute Lymphocytes 0.63 k/cumm (1.2-3.4) L 07/11/19 06:00 Absolute Monocytes 0.12 k/cumm (0.11-0.7) 07/11/19 06:00 Absolute Eosinophils 0.01 k/cumm (0.0-0.7) 07/11/19 06:00 Absolute Basophils 0.01 k/cumm (0.0-0.2) 07/11/19 06:00 Differential Comment Rbc morph reviewed 07/10/19 07:42 RBC Morphology See below 07/10/19 07:42 Polychromasia Present 07/10/19 07:42 Anisocytosis 1+ 07/10/19 07:42 D-Dimer 303 ng/mlFEU (<500) 07/10/19 07:42 Sodium 137 mmol/L (136-145) 07/11/19 06:00 Potassium 3.9 mmol/L (3.5-5.1) 07/11/19 06:00 Chloride 100 mmol/L (98-107) 07/11/19 06:00 Carbon Dioxide 25.4 mmol/L (21.0-32.0) 07/11/19 06:00 Anion Gap 11.6 mmol/L (3-11) H 07/11/19 06:00 BUN 16 mg/dL (7-18) 07/11/19 06:00 Creatinine 0.77 mg/dL (0.70-1.30) 07/11/19 06:00 Estimated GFR/1.73 m2 >= 60.00 (mL/min/1.73m2) 07/11/19 06:00 Glucose 317 mg/dL (74-106) H 07/11/19 06:00 Hemoglobin A1c 9.7 % (3.8-5.6) H 07/10/19 07:42 Calcium 8.7 mg/dL (8.5-10.1) 07/11/19 06:00 Magnesium 1.8 mg/dL (1.8-2.4) 07/11/19 06:00 Total Bilirubin 0.5 mg/dL (0.2-1.0) 07/10/19 07:42 AST 15 U/L (15-37) 07/10/19 07:42 ALT 39 U/L (16-63) 07/10/19 07:42 Alkaline Phosphatase 87 U/L (46-116) 07/10/19 07:42 Creatine Kinase 137 U/L (39-308) 07/10/19 07:42 Troponin I < 0.05 ng/Ml (<0.06) 07/10/19 20:21 Total Protein 8.2 g/dL (6.4-8.2) 07/10/19 07:42 Albumin 3.9 g/dL (3.4-5.0) 07/10/19 07:42 Urine Color Yellow (Yellow) 07/10/19 09:11 Urine Clarity Clear (Clear) 07/10/19 09:11 Urine pH 6.0 (5-8) 07/10/19 09:11 Ur Specific [place] 1.020 (1.005-1.025) 07/10/19 09:11 Urine Protein Negative mg/dL (Negative) 07/10/19 09:11 Urine Ketones Negative mg/dL (Negative) 07/10/19 09:11 Urine Blood Negative (Negative) 07/10/19 09:11 Urine Nitrite Negative (Negative) 07/10/19 09:11 Urine Bilirubin Negative (Negative) 07/10/19 09:11 Urine Urobilinogen 0.2 EU/dL (Up TO 0.2) 07/10/19 09:11 Ur Leukocyte Esterase Negative (Negative) 07/10/19 09:11 Urine Glucose >=1000 mg/dL (Negative) H 07/10/19 09:11 Urine Opiates Screen Negative (Negative) 07/10/19 09:11 Urine Methadone Screen Negative (Negative) 07/10/19 09:11 Ur Barbiturates Screen Negative (Negative) 07/10/19 09:11 Ur Tricyclics Screen Positive (Negative) A 07/10/19 09:11 Ur Amphetamines Screen Negative (Negative) 07/10/19 09:11 U Benzodiazepines Scrn Negative (Negative) 07/10/19 09:11 Urine Cocaine Screen Negative (Negative) 07/10/19 09:11 Ur THC Screen Negative (Negative) 07/10/19 09:11 Ethyl Alcohol < 3.0 mg/dL (<3) 07/10/19 08:05 Path Cons Comment 07/10/19 07:42 Echo; Left Ventricle : The left ventricle is normal. Left ventricular systolic function is normal. There is normal left ventricular wall thickness. There is normal LV segmental wall motion. The left ventricular diastolic function is normal. LVEF is 55-59%. Right Ventricle : The right ventricle is normal size. The right ventricular systolic function is normal. Atria : Left atrium is mildly dilated. The right atrium size is normal. Aortic Valve : Aortic valve is trileaflet. Aortic valve leaflets are mildly thickened. No aortic regurgitation is present. There is no aortic valvular stenosis. Mitral Valve : Mitral valve leaflets are mildl to moderately thickened. Trace mitral regurgitation. No evidence of mitral valve stenosis. Tricuspid Valve : The tricuspid valve is normal in structure. Trace tricuspid regurgitation. IVC: IVC is normal in size and collapses >50% with inspiration. There is no prior echocardiogram available for comparison.
[2019-07-11] MEDS: predniSONE 20 MG TAB 40 MG PO (19:29)
[2019-07-11] MEDS: Amitriptyline 25 MG TAB PO (21:50)
[2019-07-12] VITALS (14 sets, daily range): BP systolic 115–121; BP diastolic 66–78; PULSE 87–125; RESP 1–24; TEMP 36.1–37.2; O2SAT 90–95
[2019-07-12] MEDS: Albuterol/Ipratropium 3 ML UPD VIAL UPD ×3 (00:46→13:16)
--- NOTE | 2019-07-12 06:25 | DI.RAD_ITS ---
EXAM: XR PORTABLE CHEST AP CLINICAL HISTORY: follow up pneumonia. TECHNIQUE: 2D digital imaging was performed. COMPARISON: XR CHEST 2V PA LATERAL from 07/10/2019 FINDINGS: LUNGS: Clear. No pleural abnormality seen. HEART: Normal. MEDIASTINUM: Normal. OTHER FINDINGS: None. IMPRESSION: No acute pulmonary findings.
[2019-07-12 07:18] LABS: Abs Immature Grans 0.04 k/cumm (0.0-0.09); Absolute Lymphocyte Count 0.71 k/cumm (1.2-3.4); Absolute Monocyte Count 0.33 k/cumm (0.11-0.7); Absolute Neutrophil Count 9.59 k/cumm (1.2-6.7); HCT 45.5 % (40.0-50.0); HGB 15.6 g/dL (13.5-17.5); Immature Grans % 0.4 %; Lymphocytes % 6.7; Mean Corp. HGB Concentration 34.3 g/dL (32.0-36.0); Mean Corpuscular Hemoglobin 28.8 pg (27.0-33.0); Mean Corpuscular Volume 83.9 fL (80-95); Mean Platelet Volume 9.1 fL (8.0-11.0); Monocytes % 3.1; Neutrophils % 89.8; Platelet Count 193 x1000/uL (130-400); RBC 5.42 m/cumm (4.50-6.00); RBC Distribution Width 15.1 % (11.8-14.1); White Blood Cell Count 10.67 k/cumm (4.4-10.8)
--- NOTE | 2019-07-12 07:24 | DI.VRAD_ITS ---
PROCEDURE INFORMATION: Exam: XR Chest, 1 View Exam date and time: 07/12/2019 6:29 AM Age: 48 years old Clinical indication: Condition or disease; Other: Pneumonia; Additional info: Follow up pneumonia TECHNIQUE: Imaging protocol: XR of the chest Views: 1 view. COMPARISON: CR XR CHEST 2V PA LATERAL 07/10/2019 8:46 AM FINDINGS: Lungs: Unremarkable. No consolidation. Pleural space: Unremarkable. No pleural effusion. No pneumothorax. Heart/Mediastinum: Unremarkable. No cardiomegaly. Bones/joints: Unremarkable. IMPRESSION: No acute findings. Dictated and Authenticated by: Darío Bergman MD. Ordering:BERNA Linares MD
[2019-07-12 07:31] LABS: Anion Gap 10.1 mmol/L (3-11); BUN 21 mg/dL (7-18); CO2 23.9 mmol/L (21.0-32.0); CREATININE 0.68 mg/dL (0.70-1.30); Calcium 8.7 mg/dL (8.5-10.1); Chloride 103 mmol/L (98-107); Glucose 280 mg/dL (74-106); Magnesium 2.2 mg/dL (1.8-2.4); Potassium 4.1 mmol/L (3.5-5.1); Sodium 137 mmol/L (136-145)
[2019-07-12] MEDS: Budesonide/Formoterol 160/4.5 6 GM 60 PUFF INH IH (07:50)
[2019-07-12] MEDS: Pregabalin 50 MG CAP 150 MG PO (08:25)
[2019-07-12] MEDS: guaiFENesin 600 MG TABCR PO (08:26)
[2019-07-12] MEDS: buPROPion-CR 150 MG TABCR PO (08:26)
[2019-07-12] MEDS: Benzonatate 100 MG CAP PO ×2 (08:26→13:18)
[2019-07-12] MEDS: Gabapentin 100 MG CAP PO ×2 (08:26→13:18)
[2019-07-12] MEDS: cefTRIAXone 1 GM/50 ML BAG IVPB (08:27)
[2019-07-12] MEDS: predniSONE 20 MG TAB 40 MG PO (08:27)
[2019-07-12] MEDS: Normal Saline Flush 10 ML SYR IVP (08:27)
[2019-07-12] MEDS: Insulin Aspart 300 UNITS/3 ML PEN SC ×2 (08:28→11:50)
--- NOTE | 2019-07-12 09:40 | CMPROGNOTE_ITS ---
Care Management Progress Note S/O: Satnam continues to be closely monitored and treated. Per RT he will have close follow up with Pulmonology and for a PFT. CM continues to follow. A: 48 year old male admitted to [facility] 07/10/19 for [id number], [id number] Pneumonia P: Satnam will be discharged home, to the [facility], when medically cleared by provider. No new services anticipated at this time. He will transport via private vehicle with his consumer safety officer P#[phone]). CM continues to follow.
--- NOTE | 2019-07-12 09:40 | PDOC.CMPRO ---
Care Management Progress Note S/O: Satnam continues to be closely monitored and treated. Per RT he will have close follow up with Pulmonology and for a PFT. CM continues to follow. A: 48 year old male admitted to [facility] 07/10/19 for [id number], [id number] Pneumonia P: Satnam will be discharged home, to the [facility], when medically cleared by provider. No new services anticipated at this time. He will transport via private vehicle with his nursing officer P#[phone]). CM continues to follow.
[2019-07-12] MEDS: DOXYCYCLINE 100 MG in Normal Saline 100 ML IVPB (10:53)
[2019-07-12] MEDS: Enoxaparin 40 MG/0.4 ML SYR SC (13:12)
--- NOTE | 2019-07-12 15:40 | DSE_ITS ---
Date of service: 07/12/19 Time of Service: 15:40 DS: Diagnosis Discharge Diagnosis (1) CAP (community acquired pneumonia): Status: Acute (2) Acute exacerbation of chronic obstructive pulmonary disease (COPD): Status: Acute (3) Syncope and collapse: Status: Acute (4) Peripheral neuropathy: Status: Acute (5) Non-insulin dependent type 2 diabetes mellitus: Status: Acute (6) DVT prophylaxis: Status: Acute (7) Discharge planning issues: Status: Acute Discharge Plan Disposition Patient Disposition: HOME Condition: Improving Discharge Details Chief Complaint: Chest Pain Reason For Visit: SYNCOPE VS SEIZURE; CAP VS VIRAL PNEUMONIA; NEW DX Admit Date/Time: 07/10/19 10:50 Admit Provider: Milagros Pascual Attending Provider: Milagros Pascual Primary Care Provider: Chely Olivera ED Provider: Mary Osman Hospital Course Hospital Course: 48-year-old man with type 2 diabetes and COPD who presented after being found unresponsive on the floor by another resident of his assisted house. He has been sick with a respiratory infection for a couple of weeks, and reported history of syncope after coughing in the past, so this was presumed to be the cause of his syncope. In the emergency room, he was found to be hypoxic with oxygen saturation of 88% on room air and perihilar infiltrates on the chest x-ray. Troponin and D-dimers were negative. Head CT was negative. Patient was treated with ceftriaxone and doxycycline as well as steroids and bronchodilators. His oxygen saturation was stable in the 90s both at rest and after ambulation the day of discharge. His sputum grew group B strep and Staphylococcus. He was discharged with 3 more days of oral doxycycline and ceph alosporin as he had improved on this combination. He was given a prednisone taper and his long-acting beta agonist was changed for combination inhaled corticosteroid with long-acting beta agonist. Addition of long-acting muscarinic may be considered, or possibly replacing the inhaled corticosteroid with long-acting muscarinic agonist. Legionella, mycoplasma, and strep pneumonia urine antigens pending at discharge. He was monitored on telemetry without concerning findings. He had an echocardiogram which showed a normal ejection fraction and no wall motion abnormalities or hypertrophy. History did not suggest seizure and there was no seizure activity noted. However, the bupropion was discontinued as he said it made him feel funny and did not help him quit smoking. His metformin was held and he was treated with insulin, but his metformin was restarted upon discharge. Pregabalin and gabapentin were both on his medication list. Patient admitted he had an issue snorting these medication the past. Discussed alternatives. He was given amitriptyline. As noted above, bupropion is also commonly snorted and likely should be avoided in this patient as well. Smoking cessation was discussed and the patient was given both Chantix and nicotine replacement via patch upon discharge. Home Meds and New Rx's Prescriptions: New Symbicort 160-4.5 mcg/actuation Hfa Aerosol Inhaler 2 puff inhalation BID Qty: 1 RF: 2 doxycycline hyclate 100 mg capsule 100 mg PO BID Qty: 6 RF: 0 cefixime 400 mg capsule 400 mg PO DAILY Qty: 3 RF: 0 nicotine [Nicoderm CQ] 21 mg/24 hr patch 24 hour 1 patch TD DAILY Qty: 28 RF: 1 Chantix Starting Month Box 0.5 mg (11)- 1 mg (42) tablets,dose pack See Rx Instructions .ROUTE .COMPLEX Qty: 1 RF: 0 prednisone 20 mg tablet 60 mg PO DAILY Qty: 12 RF: 0 omeprazole 20 mg capsule,delayed release(DR/EC) 20 mg PO DAILY Qty: 30 RF: 1 Continued albuterol sulfate 90 mcg/actuation Hfa Aerosol Inhaler 2 puff INHALATION Q6H PRNRF: 0 metformin 500 mg Tablet Extended Release 24 Hr 500 mg PO DAILY RF: 0 amitriptyline 25 mg tablet 25 mg PO QHS Qty: 30 RF: 0 Discontinued pregabalin [Lyrica] 150 mg capsule 150 mg PO BID RF: 0 bupropion HCl 150 mg Tablet Sustained-Release 12 Hr 150 mg PO BID RF: 0 salmeterol 50 mcg/dose Blister With Device 1 inh INHALATION BID RF: 0 Discharge Instructions Instructions: COPD (Chronic Obstructive Pulmonary Disease) (DC) Additional Instructions: You should take 3 more days of antibiotics. One is once a day and the other is twice a day. You should take prednisone at gradually reducing doses per the prescription. You should take your albuterol inhaler as needed. You were prescribed a new combination inhaler, Symbicort, rather than the Serevent. You were prescribed both Chantix and nicotine patch to help you quit smoking. You can stop the bupropion. We will prescribe amitriptyline for neuropathic pain and sleep You should restart your metformin for diabetes. A sleep study and lung function tests were ordered and you should begin information about appointments. You should be excused from work until you are reevaluated on Monday July 15, 2019. Keep your appointment with hCely that day. Referrals: [facility] [OTHER] - Activity:: Activity as Tolerated Equipment/Supplies:: No Equipment Needed Diet:: Carb Counting Discharge Orders Discharge Orders: Discharge Order (Routine); Ordered 07/12/19 Ordered By: Romeo Oneal Other Ambulatory Orders: PFT ([place]/[facility]) (Outpt) (ONCE) Timeframe: [id number] Facility: [facility] - Location: Respiratory Therapy Ordered By: Milagros Pascual DS: Summary Status at Discharge Functional status at discharge: independent ambulation Overall status at discharge: patient is progressing back to baseline Mental Status: mental status grossly normal Speech and Movement: speech and movement normal Mood: congruent mood Affect: normal affect Exam Narrative Exam Narrative: General: A&O, speaking comfortably in full sentances, no visible dyspnea/tachypnea. Hoarse HEENT: Atraumatic, normocephalic, EOMI, MMM Cardiovascular: RRR, no m/r/g Lungs: slightly coarse breath sounds michael but good air movement, no wheeze Gastrointestinal: soft, nontender, nondistended Extremities: no e/c/c BLE's Psych Mental Status: mental status grossly normal Speech and Movement: speech and movement normal Mood: congruent mood Affect: normal affect DS: Data Vitals/I&O Vitals and I&O: Vital Signs Temperature 37.2 C 07/12/19 13:19 Temperature Source Tympanic 07/12/19 13:19 Pulse 94 H 07/12/19 13:46 Pulse Rhythm Regular 07/12/19 07:50 Pulse 94 H 07/10/19 11:50 Respiratory Rate 20 07/12/19 13:46 Respiratory Effort 07/12/19 07:50 Respiratory Depth Normal 07/12/19 07:50 Respiratory Pattern Normal 07/12/19 07:50 Blood Pressure 115/73 07/12/19 13:19 Blood Pressure Mean 79 07/10/19 11:45 Blood Pressure Position Supine 07/10/19 07:50 Pulse Oximetry 95 07/12/19 13:46 Oxygen Delivery Method Room Air 07/12/19 13:19 Oxygen Flow Rate 0 07/12/19 13:19 Pain Level 0 07/12/19 13:19 Comment 07/12/19 11:30 Intake & Output 07/11/19 07/12/19 07/12/19 23:59 11:59 23:59 Intake Total 2072.5 / 3932.5 240 / 240 Output Total 450 / 2350 1050 / 1050 Balance 1622.5 / 1582.5 -810 / -810 Weight 110.6 kg Intake: IV 1132.5 / 2752.5 Oral 940 / 1180 240 / 240 Output: Urine 450 / 2350 1050 / 1050 Other: Urine Color Yellow Yellow Urine Appearance Clear Clear Urine Odor Normal Comment per Patient Voiding Methods Urinal Toilet Data Completed and Pending Labs on day of discharge: Labs from last 24 hours 07/12/19 07/12/19 06:32 06:32 WBC 10.67 RBC 5.42 Hgb 15.6 Hct 45.5 MCV 83.9 MCH 28.8 MCHC 34.3 RDW 15.1 H Plt Count 193 MPV 9.1 Immature Gran % 0.4 Neutrophils % 89.8 Lymphocytes % 6.7 Monocytes % 3.1 Eosinophils % 0.0 Basophils % 0.0 Absolute Neutrophils 9.59 H Absolute Lymphocytes 0.71 L Absolute Monocytes 0.33 Absolute Eosinophils 0.00 Absolute Basophils 0.00 Sodium 137 Potassium 4.1 Chloride 103 Carbon Dioxide 23.9 Anion Gap 10.1 BUN 21 H Creatinine 0.68 L Estimated GFR/1.73 m2 >= 60.00 Glucose 280 H Calcium 8.7 Magnesium 2.2 Preliminary micro results at discharge 07/10/19 15:33 Sputum Culture - Preliminary Sputum Normal Lily Staphylococcus Species Group B Streptococcus [facility] Medical History (Updated 07/10/19 @ 18:00 by Milagros Pascual MD) COPD (chronic obstructive pulmonary disease) (Chronic) DJD (degenerative joint disease) (Chronic) GERD (gastroesophageal reflux disease) (Chronic) Hyperlipidemia (Acute) Hypertension (Chronic) Non-insulin dependent type 2 diabetes mellitus (Acute) Peripheral neuropathy (Acute) PVD (peripheral vascular disease) (Chronic) Tobacco abuse (Acute) Ventral hernia (Inactive) Surgical History (Updated 07/10/19 @ 17:43 by Milagros Pascual MD) H/O left knee surgery (Acute) History of open reduction and internal fixation (ORIF) procedure (Acute) LLE S/P hardware removal (Acute) LLE S/P hernia repair (Acute) x2 at [facility]- 20 years ago Family History (Updated 07/10/19 @ 17:44 by Milagros Pascual MD) Mother Diabetes Hypertension Father Diabetes Hypertension Cancer lung Paternal Grandmother Diabetes Other Heart disease Social History Smoking/Tobacco Use Status: Current every day Tobacco Type: cigarettes Smoking packs per day: 1.5 Smoking cigarettes per day: 30.0 Years smoked: 20 Smoking pack-years: 30.00 Alcohol Intake: never Drug use: Never Substance use type: does not use
--- NOTE | 2019-07-13 10:52 | PDOC.CMDIS ---
Care Management Discharge Reason for Hospitalization: Syncope vs seizure; CAP vs viral pneumonia.
--- NOTE | 2019-07-13 12:22 | CMPROGNOTE_ITS ---
Care Management Progress Note Satnam called to report he was unable to collect his new Symbicort inhaler and antibiotic from [facility] in [facility]. He stated the inhaler was not ordered and his insurance would not cover the antibiotic. Key; RNCC agreed to follow up with , and Satnam to ensure he was able to fill needed medications. P#[phone]
[2019-07-13 19:38] LABS: Mycoplasma Pneumoniae PCR Negative; Specimen source SPUTUM
[2019-07-14 08:58] LABS: Streptococcus Pneumoniae Ag, U Negative (Negative)
== END 2019-07-12 16:50 | disposition home or self-care (01) ==
LOC: ER 11:53 → MS 12:04
PROVIDERS: Admitting Provider Internal Medicine; Emergency Provider Physician Assistant; PCP Nurse Practitioner Family; Visit Provider Family Medicine
DX: J44.0 Chronic obstructive pulmonary disease with (acute) lower respiratory infection (principal); J15.211 Pneumonia due to Methicillin susceptible Staphylococcus aureus; J15.3 Pneumonia due to streptococcus, group B; B37.1 Pulmonary candidiasis; J44.1 Chronic obstructive pulmonary disease with (acute) exacerbation; R55 Syncope and collapse; R09.3 Abnormal sputum; E11.42 Type 2 diabetes mellitus with diabetic polyneuropathy; K21.9 Gastro-esophageal reflux disease without esophagitis; I10 Essential (primary) hypertension; F17.210 Nicotine dependence, cigarettes, uncomplicated; E11.51 Type 2 diabetes mellitus with diabetic peripheral angiopathy without gangrene; Z23 Encounter for immunization; W19.XXXA Unspecified fall, initial encounter
CPT/HCPCS: 36415; 36416; 80048; 80053; 80307; 82550; 82962; 87077; 87449; 93005; 94640; 96361; 96365; 99223; 99232; 99239; 99285; J1650; 70450; 71045; 71046; 80320; 81003; 83036; 83735; 84484; 85025; 85379; 87070; 87081; 87186; 87205; 87450; 87581; 93010; 93306; 99220; 99225; G0378; J0696; J2930; J7512; J7620

== ENCOUNTER 2019-07-18 17:14 | Outpatient (REF) | payer MEDICAID, SELFPAY ==
[2019-07-18 19:09] LABS: COMMENT (LAB VIEW ONLY) 27.11 mg/dL
[2019-07-18 19:10] LABS: Microalb ug/mg Crea 104.8 ug/mg Cr
== END 2019-07-18 17:34 ==
LOC: NCHCN 17:14
PROVIDERS: PCP Nurse Practitioner Family; Visit Provider Nurse Practitioner Family
DX: E11.9 Type 2 diabetes mellitus without complications (principal)
CPT/HCPCS: 82043; 82570

== ENCOUNTER 2019-09-17 10:31 | Outpatient (CLI) | payer MEDICAID, SELFPAY ==
--- NOTE | 2019-09-17 11:05 | DI.RAD_ITS ---
EXAM: XR KNEE LT 3V AP,LAT,ERIKA CLINICAL HISTORY: KNEE JOINT PAIN LT M25.562 TECHNIQUE: COMPARISON: No exams were available for comparison FINDINGS: Three views were obtained. There is plate and screw fixation in place in the proximal tibia. No pérez or films available for comparison. No evidence of acute fracture or dislocation. Mild degenerative changes of the joints of the knee noted. IMPRESSION: No evidence of acute process.
== END 2019-09-17 10:51 ==
PROVIDERS: PCP Nurse Practitioner Family; Visit Provider Nurse Practitioner Family
DX: M25.562 Pain in left knee (principal)
CPT/HCPCS: 73562

== ENCOUNTER 2019-11-29 21:38 | Inpatient (IN) | payer MEDICAID, SELFPAY ==
[2019-11-29 21:44] VITALS: BP 134/76; PULSE 119; RESP 18; TEMP 37.5; O2SAT 94
[2019-11-29 21:49] VITALS: RESP 18
--- NOTE | 2019-11-29 22:00 | DI.RAD_ITS ---
EXAM: XR FOOT RT COMPLETE CLINICAL HISTORY: 2nd and 3rd digit infection/ diabetic foot TECHNIQUE: COMPARISON: No exams were available for comparison FINDINGS: Three views were obtained. There is marked soft tissue swelling of the 2nd and 3rd toes. No bony ab normality seen involving the 3rd toe apart from mild degenerative changes of the IP joints. There is fracture of the distal phalanx of the 2nd toe. There appears to be is some associated bony loss at this site, possibility of osteomyelitis is not excluded. No other significant bony abnormality seen. IMPRESSION: Fracture of the distal phalanx of the 2nd toe noted, osteomyelitis not excluded with some apparent [place] resorption present..
--- NOTE | 2019-11-29 22:02 | W.ED.GENAD ---
Discharge Plan Disposition Patient Disposition: [facility] INPATIENT Condition: Stable Discharge Details Chief Complaint: Vascular Clinical Impression: Diabetic foot ulcer, Cellulitis in diabetic foot Primary Care Provider: Chely Olivera ED Provider: Ashley Peña Home Meds and New Rx's Prescriptions: No Action albuterol sulfate 90 mcg/actuation Hfa Aerosol Inhaler 2 puff INHALATION Q6H PRNRF: 0 metformin 500 mg Tablet Extended Release 24 Hr 500 mg PO DAILY RF: 0 budesonide-formoterol [Symbicort] 160-4.5 mcg/actuation Hfa Aerosol Inhaler 2 puff inhalation BID Qty: 1 RF: 2 Medical Decision Making <Ashley Peña - Last Filed: 11/30/19 00:12> 49-year-old male presents with a chief complaint of right toe infection. He is a ryh-hzvieah-cgijquyie diabetic and takes metformin. He also has a history of peripheral vascular disease, COPD, GERD, degenerative joint disease, hypertension. He states that last he noticed a wound to his second toe, today he noticed worsening swelling, erythema spreading up into the dorsum of his foot, swelling noted to his ankle. And increased burning to his ankle. He denies fever chills, no nausea vomiting diarrhea. Upon initial exam he has very swollen second toe with black peers eschar tissue noted to the plantar side of his second and third toes. There is an area of demarcated erythema noted to the dorsum of his right foot. His POC BGL upon arrival is 285. At this time it appears the patient has possibly necrotic diabetic foot ulcer to the second and third digits of his right foot with infection. This is complicated by patient's history of peripheral vascular disease. At this time I will treat with 1 g of ceftriaxone IV piggyback consult hospitalist for admission. Differential diagnosis includes but not limited to necrotic diabetic ulcer, cellulitis, poorly controlled diabetes, 5: Spoke with Dr. Gamboa is on for hospitalist he requested I consult with orthopedics or surgery to make sure that the surgery can be done here prior to excepting patient for admission. Dr. LAURA Glover on-call paged. [phone]: Spoke with Dr. Mello Ross who is on-call for orthopedics he does not do diabetic foot ulcers he would recommend podiatry or general surgery possibly. Imaging protocol: XR Right foot. XR Right Foot: Views: 3 or more views. COMPARISON: No relevant prior studies available. FINDINGS: Bones/joints: Second toe distal phalanx showing erosive changes and what appears to be a mid shaft fracture. Osteomyelitis cannot be excluded. Soft tissues: Right 2nd and 3rd toe distal aspect soft tissue irregularity which could represent soft tissue ulcerations or infection. Recommend clinical correlation. There is no soft tissue gas. No foreign body. IMPRESSION: 1. Soft tissue swelling of the right 2nd and 3rd toes. 2. Osseous changes of the distal phalanx of the 2nd toe. Cannot exclude osteomyelitis. There is a fracture evident as well. This could represent a pathologic fracture. Recommend clinical correlation. Thank you for allowing us to participate in the care of your patient. Dictated and Authenticated by: João Ugarte, Discussed case with Dr. Gamboa again regarding patient this time I feel he still needs to come in for IV antibiotics and cellulitis treatment with possible MRI and podiatry consult on Sunday or at soonest convenience. This patient's foot wounds do need to be debrided. Spoke with patient via regarding patient, patient to be admitted for IV antibiotics and podiatry consult. Hemoglobin A1c added onto labs, result is 9.7%. This indicates poorly controlled diabetes mellitus. Discussed admission with patient, verbalized understanding. He is complaining of 8 out of 10 pain will give pain medications. 25 mics of fentanyl IV push ordered. Patient to be admitted to [facility]. The time of this dictation patient was hemodynamically stable, alert and oriented and pending bed placement. This text was generated using [employer] dictation system, please disregard any oddities of phrase or misspellings. <Valentín Kaur MD - Last Filed: 11/29/19 23:08> I had a [id number] encounter with the patient. I evaluated the patient. I discussed case with FIELD ADMINISTRATIVE ASSISTANT/PA and I reviewed FIELD ADMINISTRATIVE ASSISTANT/PA note and agree with note as documented HPI <Ashley Peña - Last Filed: 11/30/19 00:12> General Mode of arrival: ambulatory. Date/Time Provider Initiated Documentation: 11/29/19 21:46. Limitations to Documentation: no limitations. Information obtained by: patient. HPI Narrative: 49-year-old male presents with a chief complaint of right toe infection. He is a jvg-arakker-axvobfkzl diabetic and takes metformin. He also has a history of peripheral vascular disease, COPD, GERD, degenerative joint disease, hypertension. He states that last he noticed a wound to his second toe, today he noticed worsening swelling, erythema spreading up into the dorsum of his foot, swelling noted to his ankle. And increased burning to his ankle. He denies fever chills, no nausea vomiting diarrhea. Upon initial exam he has very swollen second toe with black peers eschar tissue noted to the planrar side of his second and third toes. There is an area of demarcated erythema noted to the dorsum of his right foot. His BGL upon arrival is 285. Related Data Home Medications Medication Instructions Recorded Confirmed albuterol sulfate 2 puff INHALATION Q6H PRN 07/10/19 11/29/19 metformin 500 mg PO DAILY 07/10/19 11/29/19 budesonide-formoterol [Symbicort] 2 puff INHALATION BID #1 inh 07/12/19 11/29/19 Previous Rx's Medication Instructions Recorded budesonide-formoterol [Symbicort] 2 puff INHALATION BID #1 inh 07/12/19 Allergies Allergy/AdvReac Type Severity Reaction Status Date / Time No Known Allergies Allergy Verified 11/29/19 21:47 General Stated Complaint: Vascular RIVKA: 3 Review of Systems <Ashley Peña - Cody Filed: 11/30/19 00:12> Narrative: Constitutional: Negative for weight loss, alert and oriented, well groomed, normal body habitus, appears comfortable. Appears to have been sunburned. HEENT: Denies trauma, headaches, blurry vision, nasal discharge, sore throat, trouble swallowing. Chest: Denies chest pain, palpitations, irregular rhythm, hypertension. Respiratory: Denies Shortness of breath, cough, hemoptysis. GI: Denies abdominal pain, nausea, vomiting, diarrhea, constipation. : Denies dysuria, hematuria, flank pain, rectal bleeding. Extremities: Right foot infection Neuro: Denies dizziness, blurry vision, weakness, syncope, headache or facial numbness. Hematologic: Denies easy bruising, intolerance to heat or cold, hair loss. All systems reviewed & are unremarkable except as noted in HPI and below PFSH <Ashley Peña - Cody Filed: 11/30/19 00:12> Medical History COPD (chronic obstructive pulmonary disease) (Chronic) DJD (degenerative joint disease) (Chronic) GERD (gastroesophageal reflux disease) (Chronic) Hyperlipidemia (Acute) Hypertension (Chronic) Non-insulin dependent type 2 diabetes mellitus (Chronic) Peripheral neuropathy (Acute) PVD (peripheral vascular disease) (Chronic) Tobacco abuse (Acute) Ventral hernia (Inactive) Surgical History H/O left knee surgery (Acute) History of open reduction and internal fixation (ORIF) procedure (Acute) LLE S/P hardware removal (Acute) LLE S/P hernia repair (Acute) x2 at [facility]- 20 years ago Family History Mother Diabetes Hypertension Father Diabetes Hypertension Cancer lung Paternal Grandmother Diabetes Other Heart disease Social History Smoking/Tobacco Use Status: Current every day Tobacco Type: cigarettes Smoking packs per day: 1.5 Smoking cigarettes per day: 30.0 Years smoked: 20 Smoking pack-years: 30.00 Alcohol Intake: never Drug use: Never Substance use type: does not use Do you feel safe at home: Yes Do you feel safe in your relationship?: Yes Exam <Ashley Peña - Last Filed: 11/30/19 00:12> Narrative Exam Narrative: Constitutional: Alert and oriented x3. Appears stated age. Normal body habitus. Head: Normocephalic, no trauma. Eyes: Pupils PERRLA, Red reflex noted, EOM's intact. Eyelids symmetrical without lesions, discharge, or swelling. ENT: Bilateral TM's WNL, External ear normal to inspection, no mastoid TTP, swelling, or erythema, Nasal turbinates WNL, no nasal discharge. Normal dentition, Posterior pharynx WNL, no exudate. Chest: RRR, Normal S1, S2, distal pulses intact. Resp: Lungs clear to auscultation bilaterally, no wheezes, rales, or rhonchi. Musculoskeletal: Normal gait, 5/5 strength to all four extremities. Right second and third toe infections with dorsal erythema and swelling, swelling extends into the ankle anterior ty is warm to the touch. Skin: Swelling, eschar tissue noted posteriorly, to second digit. There is some eschar tissue noted to the third toe as well. Well demarcated area of erythema noted to the dorsum of his right foot. Swelling and warmth noted to his ankle and up to his anterior ty. Neurologic: Cranial nerves II-XII intact. Alert and oriented x 3. DTR's intact. Hematologic/Lymphatic: No ecchymosis, no lymphadenopathy. Course <Ashley Peña - Last Filed: 11/30/19 00:12> Vital Signs Vital signs: Vital Signs Temperature 37.5 C 11/29/19 21:44 Pulse 119 H 11/29/19 21:44 Respiratory Rate 18 11/29/19 21:44 Blood Pressure 134/76 11/29/19 21:44 Pulse Oximetry 94 L 11/29/19 21:44 Temperature 37.5 C 11/29/19 21:44 Temperature Source Skin 11/29/19 21:44 Pulse 119 H 11/29/19 21:44 Respiratory Rate 18 11/29/19 21:49 Respiratory Effort Non-Labored 11/29/19 21:49 Respiratory Depth Normal 11/29/19 21:49 Respiratory Pattern Normal 11/29/19 21:49 Blood Pressure 134/76 11/29/19 21:44 Pulse Oximetry 94 L 11/29/19 21:44 Pain Level 8 11/29/19 21:49 Lab/Test Results Lab/Test Results: 11/29/19 22:00 Blood Blood Culture - Pending 11/29/19 22:00 Blood Blood Culture - Pending
[2019-11-29 22:19] LABS: Lactate 1.5 mmol/L (0.6-1.4)
[2019-11-29 22:22] LABS: Abs Immature Grans 0.02 k/cumm (0.0-0.09); Absolute Basophil Count 0.01 k/cumm (0.0-0.2); Absolute Eosinophil Count 0.08 k/cumm (0.0-0.7); Absolute Lymphocyte Count 1.98 k/cumm (1.2-3.4); Absolute Monocyte Count 0.67 k/cumm (0.11-0.7); Absolute Neutrophil Count 7.19 k/cumm (1.2-6.7); Basophils % 0.1; Eosinophils % 0.8; HCT 40.6 % (40.0-50.0); HGB 14.4 g/dL (13.5-17.5); Immature Grans % 0.2 %; Lymphocytes % 19.9; Mean Corp. HGB Concentration 35.5 g/dL (32.0-36.0); Mean Corpuscular Hemoglobin 29.6 pg (27.0-33.0); Mean Corpuscular Volume 83.4 fL (80-95); Mean Platelet Volume 9.5 fL (8.0-11.0); Monocytes % 6.7; Neutrophils % 72.3; Platelet Count 212 x1000/uL (130-400); RBC 4.87 m/cumm (4.50-6.00); RBC Distribution Width 14.2 % (11.8-14.1); White Blood Cell Count 9.95 k/cumm (4.4-10.8)
--- NOTE | 2019-11-29 22:25 | DI.VRAD_ITS ---
PROCEDURE INFORMATION: Exam: XR Right Foot Complete Exam date and time: 11/29/2019 10:18 PM Age: 49 years old Clinical indication: Pain; Toes; Right; Patient HX: 2nd and 3rd digits infection / diabetic foot TECHNIQUE: Imaging protocol: XR Right foot. Views: 3 or more views. COMPARISON: No relevant prior studies available. FINDINGS: Bones/joints: Second toe distal phalanx showing erosive changes and what appears to be a mid shaft fracture. Osteomyelitis cannot be excluded. Soft tissues: Right 2nd and 3rd toe distal aspect soft tissue irregularity which could represent soft tissue ulcerations or infection. Recommend clinical correlation. There is no soft tissue gas. No foreign body. IMPRESSION: 1. Soft tissue swelling of the right 2nd and 3rd toes. 2. Osseous changes of the distal phalanx of the 2nd toe. Cannot exclude osteomyelitis. There is a fracture evident as well. This could represent a pathologic fracture. Recommend clinical correlation. Dictated and Authenticated by: João Ugarte MD. Ordering:PORTER Ramirez MD
[2019-11-29 22:35] LABS: ALT 22 U/L (16-63); AST 18 U/L (15-37); Albumin 3.6 g/dL (3.4-5.0); Alkaline Phosphatase 85 U/L (46-116); Anion Gap 7.3 mmol/L (3-11); BUN 24 mg/dL (7-18); Bilirubin, Total 0.7 mg/dL (0.2-1.0); CO2 28.7 mmol/L (21.0-32.0); CREATININE 1.05 mg/dL (0.70-1.30); Calcium 9.1 mg/dL (8.5-10.1); Chloride 95 mmol/L (98-107); Glucose 318 mg/dL (74-106); Potassium 3.6 mmol/L (3.5-5.1); Sodium 131 mmol/L (136-145); Total Protein 8.2 g/dL (6.4-8.2)
[2019-11-29] MEDS: cefTRIAXone 1 GM/50 ML BAG IVPB (22:57)
--- NOTE | 2019-11-29 22:59 | HPE_ITS ---
Date of service: 11/29/19 Time of Service: 22:59 Assessment and Plan Assessment and plan (1) Cellulitis and abscess of foot: Start date: 11/29/19 Status: Acute Assessment and plan: This is a 49-year-old gentleman who is uncontrolled diabetic with hemoglobin A1c above 9 today and only on metformin. He has peripheral neuropathy and chronically has ulcers over his second and third toes of both feet. His right second toe presently appears to have osteomyelitis with dry gangrene and he has evidence of cellulitis over his foot and ankle. He was admitted for IV antibiotics and hydration with podiatry consultation for possible debridement versus amputation of his second toe. He is at risk for BKA. He is a full code. He is a smoker this may decrease his circulation but his peripheral pulses are strong and intact with no evidence of PVD by exam. There is a history of PVD on his problem list. (2) Peripheral neuropathy: Status: Acute Assessment and plan: Most likely secondary to diabetes and is compromising the patient's foot care. He does have deformities of his feet chronically in the second and third toes with trauma to the tips of these toes. He also appears to have possible right Charcot joint of the ankle. Qualifiers: Peripheral neuropathy type: polyneuropathy associated with underlying disease Qualified Code(s): G63 - Polyneuropathy in diseases classified elsewhere (3) Non-insulin dependent type 2 diabetes mellitus: Status: Chronic Assessment and plan: On metformin and poorly controlled with a hemoglobin A1c 9.7 today. Patient needs follow-up with his PMD as an outpatient for better glycemic control. He also needs chronic podiatry care and surveillance with trauma to his feet. (4) Tobacco abuse: Status: Acute Assessment and plan: Advised tobacco cessation long-term. NicoDerm patch while the patient is in the hospital. History of Present Illness History of Present Illness Chief Complaint: Right toe infection Narrative: This is a 49-year-old gentleman with a long history of poorly controlled diabetes who had multiple surgeries to his left leg after a complicated fracture with deformities of his left lower extremity and chronic numbness over his feet from his diabetes. He does note that he has ulcers over the tip of his second and third toes on both feet and his right foot recently worsened with his second toe swelling and not improving in fact turning black with an enlarging ulcer. He also noted burning and pain over the top of his foot and leg on the right with a red patch over his foot. He came to the ED for evaluation and x-ray did reveal probable osteomyelitis of the distal phalanx of the second right toe with soft tissue swelling associated with his cellulitis. He had cultures done and was started on IV antibiotics with podiatry to see him when available with further imaging as indicated. He may have amputation of the second toe versus debridement and slow healing. He does have a history of peripheral vascular disease which is unclear with the physical exam revealing strong peripheral pulses, see physical exam. He does have numbness in his feet and his right ankle does not function normally with a bit of a foot drop but what appears more as a Charcot joint on exam, see physical exam. He is a smoker and very active. He has no other complaints. Review of Systems Narrative: 13 point review of systems otherwise unrevealing or stable. FOR[facility]LY [facility] Medical History COPD (chronic obstructive pulmonary disease) (Chronic) DJD (degenerative joint disease) (Chronic) GERD (gastroesophageal reflux disease) (Chronic) Hyperlipidemia (Acute) Hypertension (Chronic) Non-insulin dependent type 2 diabetes mellitus (Chronic) Peripheral neuropathy (Acute) PVD (peripheral vascular disease) (Chronic) Tobacco abuse (Acute) Ventral hernia (Inactive) Surgical History H/O left knee surgery (Acute) History of open reduction and internal fixation (ORIF) procedure (Acute) LLE S/P hardware removal (Acute) LLE S/P hernia repair (Acute) x2 at [facility]- 20 years ago Family History Mother Diabetes Hypertension Father Diabetes Hypertension Cancer lung Paternal Grandmother Diabetes Other Heart disease Social History Smoking/Tobacco Use Status: Current every day Tobacco Type: cigarettes Smoking packs per day: 1.5 Smoking cigarettes per day: 30.0 Years smoked: 20 Smoking pack-years: 30.00 Alcohol Intake: never Drug use: Never Substance use type: does not use Do you feel safe at home: Yes Do you feel safe in your relationship?: Yes Meds Home Medications and Allergies Home Medications Medication Instructions Recorded Confirmed Type albuterol sulfate 2 puff INHALATION Q6H PRN 07/10/19 11/29/19 History metformin 500 mg PO DAILY 07/10/19 11/29/19 History budesonide-formoterol [Symbicort] 2 puff INHALATION BID #1 inh 07/12/19 11/29/19 Rx Allergies Allergy/AdvReac Type Severity Reaction Status Date / Time No Known Allergies Allergy Verified 11/29/19 21:47 Exam Narrative Exam Narrative: General: Patient appears appropriate for age, alert and oriented x3 speaking with a hoarse voice with a flattened affect but good eye contact. He is alert and oriented x3. Skin: Sunburned over exposed areas including face chest and lower extremities, diffuse actinic changes over sun exposed areas without suspicious lesions, warm and dry with otherwise normal color. Patient does have chronic venous stasis skin changes over left lower extremity with deformity of his leg secondary to multiple fractures with surgeries but no ulcerations. HEENT: Normocephalic, ears normal, eyes with pupils equal and reactive to light symmetrically with extraocular movement intact and sclera anicteric. Oropharynx with dry oral mucosa and patient is edentulous. Neck: Supple without JVD. Back: Stooped posture without CVA tenderness. Lungs: Bronchovesicular breath sounds diffusely with fair aeration, diffuse rhonchi with expiration with no expiratory wheeze or increased expiratory phase. No focalizing inspiratory rales. Heart: Regular rate and rhythm with no murmurs or gallops appreciated. Abdomen: Slightly obese contour, soft and nontender to palpation without palpable hepatosplenomegaly. Previous inguinal hernia scar is well-healed. Genitalia/rectal: Exam deferred. Extremities: No pitting edema, generalized cyanosis or clubbing. Left leg has multiple bony deformities from compound fracture with multiple surgeries with patient stated he had a romel placed in his tibia and a well-healed scar over the leg just inferior to the patellar tendon of the left knee. Right ankle with swelling and decreased range of motion with possible Charcot joint. Right foot with swollen and cyanotic second toe with dry gangrene over the distal toe which is ulcerated with local tissue destruction. There is erythema over the top of the right foot proximal to the second toe and up onto the pretibial area centrally with increased warmth to touch. There are calluses at the tips and slight swelling with dry ulcers over the third toe of the right foot and second and third toe of the left foot with slight hammertoe deformities. Posterior tib and dorsalis pedis pulses bilaterally 2+ and full with good capillary refill over both feet. Neuro: Decreased monofilament fine touch over the lower extremities bilaterally from ankles down. Right foot has decreased dorsiflexion. Motor otherwise normal with 5 out of 5 muscle strength. Cranial nerves II to XII grossly intact. Psych: Flattened affect but good eye contact. Normal thought processes. Remote and recent memory intact. Results Imaging Imaging Studies: Exam: XR Right Foot Complete Exam date and time: 11/29/2019 10:18 PM Age: 49 years old Clinical indication: Pain; Toes; Right; Patient HX: 2nd and 3rd digits infection / diabetic foot TECHNIQUE: Imaging protocol: XR Right foot. Views: 3 or more views. COMPARISON: No relevant prior studies available. FINDINGS: Bones/joints: Second toe distal phalanx showing erosive changes and what appears to be a mid shaft fracture. Osteomyelitis cannot be excluded. Soft tissues: Right 2nd and 3rd toe distal aspect soft tissue irregularity which could represent soft tissue ulcerations or infection. Recommend clinical correlation. There is no soft tissue gas. No foreign body. IMPRESSION: 1. Soft tissue swelling of the right 2nd and 3rd toes. 2. Osseous changes of the distal phalanx of the 2nd toe. Cannot exclude osteomyelitis. There is a fracture evident as well. This could represent a pathologic fracture. Recommend clinical correlation. Dictated and Authenticated by: João Ugarte MD. Labs Result diagrams: 11/29/19 22:00 11/29/19 22:00 Labs: Laboratory Results - last 24 hr 11/29/19 11/29/19 11/29/19 22:00 22:00 22:00 WBC 9.95 RBC 4.87 Hgb 14.4 Hct 40.6 MCV 83.4 MCH 29.6 MCHC 35.5 RDW 14.2 H Plt Count 212 MPV 9.5 Immature Gran % 0.2 Neutrophils % 72.3 Lymphocytes % 19.9 Monocytes % 6.7 Eosinophils % 0.8 Basophils % 0.1 Absolute Neutrophils 7.19 H Absolute Lymphocytes 1.98 Absolute Monocytes 0.67 Absolute Eosinophils 0.08 Absolute Basophils 0.01 Sodium 131 L Potassium 3.6 Chloride 95 L Carbon Dioxide 28.7 Anion Gap 7.3 BUN 24 H Creatinine 1.05 Estimated GFR/1.73 m2 >= 60.00 Glucose 318 H Lactate 1.5 H Calcium 9.1 Total Bilirubin 0.7 AST 18 ALT 22 Alkaline Phosphatase 85 Total Protein 8.2 Albumin 3.6 Last Vital Signs Temp 37.5 C 11/29/19 21:44 Pulse 119 H 11/29/19 21:44 Resp 18 11/29/19 21:49 BP 134/76 11/29/19 21:44 Pulse Ox 94 L 11/29/19 21:44 COVID-19 Screening In the past 14 days, have you traveled outside of [place] or [place]?: NO Had IN PERSON contact w/suspected or confirmed C-19 person: No
[2019-11-29] MEDS: fentaNYL 100 MCG/2 ML VIAL 25 MCG IVP (23:32)
[2019-11-29 23:58] LABS: Hemoglobin A1C 9.7 % (3.8-5.6)
[2019-11-30] VITALS (9 sets, daily range): BP systolic 100–133; BP diastolic 65–83; PULSE 71–100; RESP 16–19; TEMP 35.7–37.4; O2SAT 91–96
[2019-11-30] MEDS: Ibuprofen 600 MG TAB PO (01:40)
[2019-11-30] MEDS: HYDROcodone 5/Acetaminophen 325 TAB PO ×4 (01:41→19:42)
[2019-11-30] MEDS: PIPERACILLIN/TAZO 4.5 GM in Normal Saline 100 ML IVPB ×4 (01:41→19:33)
[2019-11-30] MEDS: Normal Saline 1,000 ML 125 ML IV ×3 (01:41→22:40)
[2019-11-30] MEDS: Heparin 5,000 UNITS/ML VIAL 5000 UNITS SC ×3 (05:46→21:46)
[2019-11-30 06:54] LABS: HCT 38.4 % (40.0-50.0); HGB 13.5 g/dL (13.5-17.5); Mean Corp. HGB Concentration 35.2 g/dL (32.0-36.0); Mean Corpuscular Hemoglobin 29.8 pg (27.0-33.0); Mean Corpuscular Volume 84.8 fL (80-95); Mean Platelet Volume 9.5 fL (8.0-11.0); Platelet Count 192 x1000/uL (130-400); RBC 4.53 m/cumm (4.50-6.00); RBC Distribution Width 14.4 % (11.8-14.1); White Blood Cell Count 10.06 k/cumm (4.4-10.8)
[2019-11-30 07:17] LABS: Bilirubin Negative (Negative); Blood Negative (Negative); Clarity Clear (Clear); Glucose 500 mg/dL (Negative); Ketones Negative (Negative); Leukocyte Esterase Negative (Negative); Nitrite Negative (Negative); Specific Gravity 1.025 (1.005-1.025); Urobilinogen 0.2 EU/dL (Up TO 0.2); pH 5.5 (5-8)
[2019-11-30 07:26] LABS: C-Reactive Protein 19.04 mg/dL (0.0-0.3)
[2019-11-30 07:27] LABS: ALT 19 U/L (16-63); AST 10 U/L (15-37); Alkaline Phosphatase 75 U/L (46-116); Anion Gap 7.8 mmol/L (3-11); BUN 25 mg/dL (7-18); Bilirubin, Total 0.5 mg/dL (0.2-1.0); CO2 27.2 mmol/L (21.0-32.0); CREATININE 1.21 mg/dL (0.70-1.30); Calcium 8.6 mg/dL (8.5-10.1); Chloride 98 mmol/L (98-107); Glucose 350 mg/dL (74-106); Potassium 3.4 mmol/L (3.5-5.1); Sodium 133 mmol/L (136-145); Total Protein 7.1 g/dL (6.4-8.2)
[2019-11-30 07:48] LABS: ESR 49 mm/hr (0-15)
[2019-11-30] MEDS: Insulin Aspart 300 UNITS/3 ML PEN SC ×4 (07:48→21:46)
[2019-11-30] MEDS: Omeprazole 20 MG CAPCR PO (07:49)
[2019-11-30] MEDS: Budesonide/Formoterol 160/4.5 6 GM 60 PUFF INH IH ×2 (07:55→19:32)
[2019-11-30] MEDS: Potassium Chloride 20 MEQ TABCR 40 MEQ PO (09:20)
[2019-11-30] MEDS: Nicotine 21 MG/24 HR PATCH TD (10:26)
--- NOTE | 2019-11-30 10:32 | W.PM.PROGNOT ---
Date of Service Date of service: 11/30/19 Time of Service: 10:47 Assessment and Plan Assessment and plan (1) Cellulitis and abscess of foot: Start date: 11/30/19 Start time: 10:39 Status: Acute Assessment and plan: Poorly controlled diabetes with A1C 9.1, Right ankle with swelling and decreased range of motion with possible Charcot joint. Right foot with swollen and cyanotic second toe with dry gangrene over the distal toe which is ulcerated with local tissue destruction. There is erythema over the top of the right foot proximal to the second toe and up onto the pretibial area centrally with increased warmth to touch. There are calluses at the tips and slight swelling with dry ulcers over the third toe of the right foot. xray revealing swelling of 2nd and 3rd toes. Osseous changes of distal phalanx of 2nd toe, cannot exclude osteo. Frature evident. MRI for tomorrow Podiatry consult. Obi and sathya for coverage, (2) Peripheral neuropathy: Start date: 11/30/19 Start time: 10:44 Status: Acute Assessment and plan: Most likely secondary to diabetes and is compromising the patient's foot care. He does have deformities of his feet chronically in the second and third toes with trauma to the tips of these toes. He also appears to have possible right Charcot joint of the ankle. He denies pain to feet. Control diabetes with insulin while in hospital with target goal 180 Qualifiers: Peripheral neuropathy type: polyneuropathy associated with underlying disease Qualified Code(s): G63 - Polyneuropathy in diseases classified elsewhere (3) Non-insulin dependent type 2 diabetes mellitus: Start date: 11/30/19 Start time: 10:45 Status: Chronic Assessment and plan: On metformin and poorly controlled with a hemoglobin A1c 9.7 today. Patient needs follow-up with his PMD as an outpatient for better glycemic control. He also needs chronic podiatry care and surveillance with trauma to his feet. He states he monitors daily but has not been doing that routinely as of late. Encourage foot care (4) Tobacco abuse: Start date: 11/30/19 Start time: 10:45 Status: Acute Assessment and plan: Advised tobacco cessation long-term. NicoDerm patch while the patient is in the hospital. Above case discussed with Dr. Hernandez who is in agreement. Subjective Subjective Patient reports: other Interval history since last seen: Patient is concerned about losing second right toe. It is swollen, odorous with drainage, eschar to top down inner aspect to middle phalange, with cellulitis down second foot to mid dorsal of foot. Patient states improved erythema. The third top of toe is also concerning at it appears with eschar to top. MRI for am with podiatry consult. Explained to patient unsure of extent to which infection is and could possibly lose entire toe. He is aware of this, handleing well. Pain controlled. He denies CP, SOB, N/V/D> Exam Narrative Exam Narrative: General: Patient appears appropriate for age, alert and oriented x3 speaking with a hoarse voice with a flattened affect but good eye contact. He is alert and oriented x3. Skin: Sunburned over exposed areas including face chest and lower extremities, diffuse actinic changes over sun exposed areas without suspicious lesions, warm and dry with otherwise normal color. Patient does have chronic venous stasis skin changes over left lower extremity with deformity of his leg secondary to multiple fractures with surgeries but no ulcerations. HEENT: Normocephalic, ears normal, eyes with pupils equal and reactive to light symmetrically with extraocular movement intact and sclera anicteric. Oropharynx with dry oral mucosa and patient is edentulous. Neck: Supple without JVD. Lungs: LSCB Heart: Regular rate and rhythm with no murmurs or gallops appreciated. Abdomen:BSx4 Extremities: No pitting edema, generalized cyanosis or clubbing. Left leg has multiple bony deformities from compound fracture with multiple surgeries with patient stated he had a romel placed in his tibia and a well-healed scar over the leg just inferior to the patellar tendon of the left knee. Right ankle with swelling and decreased range of motion with possible Charcot joint. Right foot with swollen and cyanotic second toe with dry gangrene over the distal toe which is ulcerated with local tissue destruction. There is erythema over the top of the right foot proximal to the second toe and up onto the pretibial area centrally with increased warmth to touch. There are calluses at the tips and slight swelling with dry ulcers over the third toe of the right foot and second and third toe of the left foot with slight hammertoe deformities. Posterior tib and dorsalis pedis pulses bilaterally 2+ and full with good capillary refill over both feet. Neuro: Decreased monofilament fine touch over the lower extremities bilaterally from ankles down. Right foot has decreased dorsiflexion. Motor otherwise normal with 5 out of 5 muscle strength. Cranial nerves II to XII grossly intact. Objective Objective Clinical Data: Abnormal lab results 11/29/19 11/29/19 11/29/19 Range/Units 22:00 22:00 22:00 Hct (40.0-50.0) % RDW 14.2 H (11.8-14.1) % Absolute Neutrophils 7.19 H (1.2-6.7) k/cumm ESR (0-15) mm/hr Sodium 131 L (136-145) mmol/L Potassium (3.5-5.1) mmol/L Chloride 95 L (98-107) mmol/L BUN 24 H (7-18) mg/dL Glucose 318 H (74-106) mg/dL Hemoglobin A1c (3.8-5.6) % Lactate 1.5 H (0.6-1.4) mmol/L AST (15-37) U/L C-Reactive Protein (0.0-0.3) mg/dL Albumin (3.4-5.0) g/dL Urine Glucose (Negative) mg/dL 11/29/19 11/30/19 11/30/19 Range/Units 22:00 05:00 06:15 Hct (40.0-50.0) % RDW (11.8-14.1) % Absolute Neutrophils (1.2-6.7) k/cumm ESR 49 H (0-15) mm/hr Sodium (136-145) mmol/L Potassium (3.5-5.1) mmol/L Chloride (98-107) mmol/L BUN (7-18) mg/dL Glucose (74-106) mg/dL Hemoglobin A1c 9.7 H (3.8-5.6) % Lactate (0.6-1.4) mmol/L AST (15-37) U/L C-Reactive Protein (0.0-0.3) mg/dL Albumin (3.4-5.0) g/dL Urine Glucose 500 H (Negative) mg/dL 11/30/19 11/30/19 11/30/19 Range/Units 06:15 06:15 06:15 Hct 38.4 L (40.0-50.0) % RDW 14.4 H (11.8-14.1) % Absolute Neutrophils (1.2-6.7) k/cumm ESR (0-15) mm/hr Sodium 133 L (136-145) mmol/L Potassium 3.4 L (3.5-5.1) mmol/L Chloride (98-107) mmol/L BUN 25 H (7-18) mg/dL Glucose 350 H (74-106) mg/dL Hemoglobin A1c (3.8-5.6) % Lactate (0.6-1.4) mmol/L AST 10 L (15-37) U/L C-Reactive Protein 19.04 H (0.0-0.3) mg/dL Albumin 3.0 L (3.4-5.0) g/dL Urine Glucose (Negative) mg/dL Vital Signs Temperature 35.7 C L 11/30/19 07:16 Temperature Source Tympanic 11/30/19 07:16 Pulse 90 11/30/19 07:16 Pulse Rhythm Regular 11/30/19 07:30 Respiratory Rate 18 11/30/19 07:16 Respiratory Effort Non-Labored 11/30/19 07:30 Respiratory Depth Normal 11/30/19 07:30 Respiratory Pattern Normal 11/30/19 07:30 Blood Pressure 110/69 11/30/19 07:16 Pulse Oximetry 91 L 11/30/19 07:30 Oxygen Delivery Method Nasal Cannula 11/30/19 07:30 Oxygen Flow Rate 2 11/30/19 07:30 Pain Level 7 11/30/19 07:47 Comment 11/30/19 05:39 Intake & Output 11/29/19 11/29/19 11/30/19 11:59 23:59 11:59 Intake Total 50 / 50 100 / 100 Output Total 300 / 300 Balance 50 / 50 -200 / -200 Weight 112.037 kg 106.8 kg Intake: IV 50 / 50 100 / 100 Output: Urine 300 / 300 Other: Urine Color Light Nahed Urine Appearance Clear Voiding Methods Urinal Laboratory Results WBC 10.06 k/cumm (4.4-10.8) 11/30/19 06:15 RBC 4.53 m/cumm (4.50-6.00) 11/30/19 06:15 Hgb 13.5 g/dL (13.5-17.5) 11/30/19 06:15 Hct 38.4 % (40.0-50.0) L 11/30/19 06:15 MCV 84.8 fL (80-95) 11/30/19 06:15 MCH 29.8 pg (27.0-33.0) 11/30/19 06:15 MCHC 35.2 g/dL (32.0-36.0) 11/30/19 06:15 RDW 14.4 % (11.8-14.1) H 11/30/19 06:15 Plt Count 192 x1000/uL (130-400) 11/30/19 06:15 MPV 9.5 fL (8.0-11.0) 11/30/19 06:15 Immature Gran % 0.2 % 11/29/19 22:00 Neutrophils % 72.3 11/29/19 22:00 Lymphocytes % 19.9 11/29/19 22:00 Monocytes % 6.7 11/29/19 22:00 Eosinophils % 0.8 11/29/19 22:00 Basophils % 0.1 11/29/19 22:00 Absolute Neutrophils 7.19 k/cumm (1.2-6.7) H 11/29/19 22:00 Absolute Lymphocytes 1.98 k/cumm (1.2-3.4) 11/29/19 22:00 Absolute Monocytes 0.67 k/cumm (0.11-0.7) 11/29/19 22:00 Absolute Eosinophils 0.08 k/cumm (0.0-0.7) 11/29/19 22:00 Absolute Basophils 0.01 k/cumm (0.0-0.2) 11/29/19 22:00 ESR 49 mm/hr (0-15) H 11/30/19 06:15 Sodium 133 mmol/L (136-145) L 11/30/19 06:15 Potassium 3.4 mmol/L (3.5-5.1) L 11/30/19 06:15 Chloride 98 mmol/L (98-107) 11/30/19 06:15 Carbon Dioxide 27.2 mmol/L (21.0-32.0) 11/30/19 06:15 Anion Gap 7.8 mmol/L (3-11) 11/30/19 06:15 BUN 25 mg/dL (7-18) H 11/30/19 06:15 Creatinine 1.21 mg/dL (0.70-1.30) 11/30/19 06:15 Estimated GFR/1.73 m2 >= 60.00 (mL/min/1.73m2) 11/30/19 06:15 Glucose 350 mg/dL (74-106) H 11/30/19 06:15 Hemoglobin A1c 9.7 % (3.8-5.6) H 11/29/19 22:00 Lactate 1.5 mmol/L (0.6-1.4) H 11/29/19 22:00 Calcium 8.6 mg/dL (8.5-10.1) 11/30/19 06:15 Magnesium 2.0 mg/dL (1.8-2.4) 11/30/19 06:15 Total Bilirubin 0.5 mg/dL (0.2-1.0) 11/30/19 06:15 AST 10 U/L (15-37) L 11/30/19 06:15 ALT 19 U/L (16-63) 11/30/19 06:15 Alkaline Phosphatase 75 U/L (46-116) 11/30/19 06:15 C-Reactive Protein 19.04 mg/dL (0.0-0.3) H 11/30/19 06:15 Total Protein 7.1 g/dL (6.4-8.2) 11/30/19 06:15 Albumin 3.0 g/dL (3.4-5.0) L 11/30/19 06:15 Urine Color Yellow (Yellow) 11/30/19 05:00 Urine Clarity Clear (Clear) 11/30/19 05:00 Urine pH 5.5 (5-8) 11/30/19 05:00 Ur Specific [place] 1.025 (1.005-1.025) 11/30/19 05:00 Urine Protein Negative mg/dL (Negative) 11/30/19 05:00 Urine Ketones Negative mg/dL (Negative) 11/30/19 05:00 Urine Blood Negative (Negative) 11/30/19 05:00 Urine Nitrite Negative (Negative) 11/30/19 05:00 Urine Bilirubin Negative (Negative) 11/30/19 05:00 Urine Urobilinogen 0.2 EU/dL (Up TO 0.2) 11/30/19 05:00 Ur Leukocyte Esterase Negative (Negative) 11/30/19 05:00 Urine Glucose 500 mg/dL (Negative) H 11/30/19 05:00
--- NOTE | 2019-11-30 11:40 | PHA.REVIEW ---
Pharmacy Admission Review - Admission Clinical Review (Last Reviewed 11/29/19 @ 23:02 by Pete Gamboa) Cellulitis and abscess of foot (Acute) Tobacco abuse (Acute) Peripheral neuropathy (Acute) No Known Allergies Allergy (Verified 11/29/19 21:47) Height 5 ft 11 in Weight 106.8 kg - Renal Dosing Renal Dosing: BUN 25 mg/dL (7-18) H 11/30/19 06:15 Creatinine 1.21 mg/dL (0.70-1.30) 11/30/19 06:15 Medications needing adjustments: Reviewed (Crcl ~91.8 mL/min using adjusted body weight. Current meds okay) - Anticoagulation Anticoagulation: Hgb 13.5 g/dL (13.5-17.5) 11/30/19 06:15 Hct 38.4 % (40.0-50.0) L 11/30/19 06:15 Plt Count 192 x1000/uL (130-400) 11/30/19 06:15 Creatinine 1.21 mg/dL (0.70-1.30) 11/30/19 06:15 DVT Prohphylaxis: Reviewed Medications: Heparin Therapeutic Anticoagulation: N/A - Opiate Usage Evaluate Pain Scale/Pains Meds: Reviewed Scheduled Bowel Reg ordered if on Opiates?: No (PRN meds ordered) - Relevant Labs ESR 49 mm/hr (0-15) H 11/30/19 06:15 Sodium 133 mmol/L (136-145) L 11/30/19 06:15 Potassium 3.4 mmol/L (3.5-5.1) L 11/30/19 06:15 Chloride 98 mmol/L (98-107) 11/30/19 06:15 Magnesium 2.0 mg/dL (1.8-2.4) 11/30/19 06:15 C-Reactive Protein 19.04 mg/dL (0.0-0.3) H 11/30/19 06:15 Electrolytes, C-Reactive P, ESR: Reviewed (Normal saline IVF running, was given PO K+ replacement) - DM Control DM Control: Glucose 350 mg/dL (74-106) H 11/30/19 06:15 Hemoglobin A1c 9.7 % (3.8-5.6) H 11/29/19 22:00 Finger Stick Blood Glucose 316 Finger Stick Blood Glucose 316 Insulin Dosing: Reviewed (sliding scale aspart ordered, dosing adjusted from moderate to resistant. [employer] monitoring BG.) - Heart Failure/WA EF%, RHEA's, B-Blockers, Diuretics: N/A - BP Control BP Control: Blood Pressure 110/69 Blood Pressure 100/65 Blood Pressure 120/71 If elevated: N/A - Qtc Review If Elevated: N/A - IV to PO Switch IV Medications: N/A - Home Meds Home Med List reviewed: Reviewed Relevent Home Meds Not ordered & why?: metformin (has sliding scale aspart right now) - Current meds Current Medication Order Review: Reviewed - Comments Comments/Follow Ups: Watch BG, K+, and sodium. Vanco trough ordered for tomorrow. Antibiotic Activity - Pharmacy Antibiotic Review Pharmacy Antibiotic Activity: C/S review (vanco and zosyn ordered. BC pending)
[2019-11-30 12:48] LABS: COVID-19 RT-PCR UVMMC Result Negative (Negative)
--- NOTE | 2019-11-30 13:12 | PDOC.CMIN ---
- If Service Date Differs Date of service: 11/30/19 Time of Service: 18:33 Care Management Initial Assess REASON FOR HOSPITALIZATION:: Cellulitis with abscess right foot, neuropathy with w/NIDDM, PVD PAST MEDICAL HISTORY/PAST SURGICAL HISTORY:: Medical History: COPD (chronic obstructive pulmonary disease) (Chronic),. DJD (degenerative joint disease) (Chronic), GERD (gastroesophageal reflux disease) (Chronic), Hyperlipidemia (Acute), Hypertension (Chronic),. Non-insulin dependent type 2 diabetes mellitus (Acute), Peripheral neuropathy (Acute), PVD (peripheral vascular disease) (Chronic), Tobacco abuse (Acute), and Ventral hernia (Inactive). Surgical History: H/O left knee surgery (Acute), History of open reduction and internal fixation (ORIF) procedure (Acute) - LLE, S/P hardware removal (Acute) - LLE, and S/P hernia repair (Acute) - x2 at [facility]- 20 years ago. PREVIOUS FUNCTIONAL STATUS/SOCIAL/FAMILY SUPPORTS:: Satnam resides in [facility] at the [facility] where he is also employed. He reports he is currently working toward securing his own housing. Satnam has three adult children and three grandchildren, all of whom live in [place]. He names his mom who resides in [place] as a source of support for him. Satnam sees PIERCE Camarena, in the community for mental health and substance use treatment. Satnam is independent with ADLs at baseline. ADVANCE DIRECTIVES:: None on file. Has patient been provided with information about the portal?: Yes Did the patient sign up for the portal?: No CODE STATUS:: Full Code INSURANCE COVERAGE / FINANCIAL ISSUES:: Medicaid. CURRENT HOME/COMMUNITY SERVICES/EQUIPMENT:: Satnam sees PIERCE Camarena, for mental health and substance abuse therapy. Satnam also has a commercial account officer (Alton Tran) and supports through the [facility]. Satnam states he does not have any medical equipment. PRIMARY CARE PHYSICIAN:: ENRIQUE Valera ([facility]) POTENTIAL DISCHARGE NEEDS:: Follow-up appointment with primary care physician. Discuss [facility] referral for possible increased medical needs and housing. PATIENT/FAMILY EDUCATION NEEDS:: Discharge plan, limitations, follow-up plan of care, including Ask Me Three and self-management. ANTICIPATED BARRIERS TO DISCHARGE:: None anticipated at this time. TRANSPORTATION:: Satnam will be transported back to the [facility] via private vehicle with his mother. PLAN:: Undetermined course of treatment at this time. Satnam will see Podiatry and Diabetes Education tomorrow, anticipate Dr. Roche will advise next steps in treatment. CM continues to follow.
--- NOTE | 2019-11-30 13:15 | NUR.NOTE ---
Nursing Note: Negative Covid result reported from lab
--- NOTE | 2019-11-30 17:20 | POCOE_ITS ---
Date of service: 11/30/19 Time of Service: 17:20 History of Present Illness History of Present Illness Chief Complaint: Gangrenous right second toe with cellulitis Narrative: 49-year-old male, poorly controlled diabetic with peripheral n europathy who has longstanding corn formations affecting the distal tips of the second and third digits of both feet. About a week ago he noticed increasing darkness at the tip of his right second toe which has steadily progressed requiring admission through the emergency room yesterday for erythema and cellulitis pain and swelling of his right second toe all the way to his ankle. [facility] Medical History COPD (chronic obstructive pulmonary disease) (Chronic) DJD (degenerative joint disease) (Chronic) GERD (gastroesophageal reflux disease) (Chronic) Hyperlipidemia (Acute) Hypertension (Chronic) Non-insulin dependent type 2 diabetes mellitus (Chronic) Peripheral neuropathy (Acute) PVD (peripheral vascular disease) (Chronic) Tobacco abuse (Acute) Ventral hernia (Inactive) Surgical History H/O left knee surgery (Acute) History of open reduction and internal fixation (ORIF) procedure (Acute) LLE S/P hardware removal (Acute) LLE S/P hernia repair (Acute) x2 at [facility]- 20 years ago Family History Mother Diabetes Hypertension Father Diabetes Hypertension Cancer lung Paternal Grandmother Diabetes Other Heart disease Social History Smoking/Tobacco Use Status: Current every day Tobacco Type: cigarettes Smoking packs per day: 1.5 Smoking cigarettes per day: 30.0 Years smoked: 20 Smoking pack-years: 30.00 Alcohol Intake: never Drug use: Never Substance use type: does not use Do you feel safe at home: Yes Do you feel safe in your relationship?: Yes Exam Narrative Exam Narrative: Very pleasant 49-year-old white male seen at bedside. He is awake, alert, in no acute distress. I reviewed his admission H&P and today's progress note, all labs and x-ray find ings. Vascular exam: Dorsalis pedis and posterior tibial arteries are easily palpable at the ankles graded 2/4 bilaterally. He has good capillary return to all toes with the exception of the right second toe which has a gangrenous tip. Erythema is appreciated affecting the right second toe with cellulitis extending to the midfoot region primarily dorsally. Muscle groups are noted to be 5 out of 5 bilaterally. Skeletal exam of the right foot reveals bone loss from the distal phalanx of the second toe consistent with osteomyelitis and what appears to be probable pathologic fracture also through the base of the distal phalanx. Flexion contractures of the lesser toes are appreciated with infra and retrocalcaneal spurring noted on the right foot. The metatarsal phalangeal joints and all proximal joints appear grossly benign. Subtalar joint and ankle joint limited views were unremarkable. The right second toe is markedly enlarged and boggy, ischemic in nature. Neurological exam, he is neuropathic moderately and has no current pain in his right second toe with manipulation. Impressions: Diabetic abscess with osteomyelitis right second toe Plan: MRI has been ordered for first thing tomorrow morning. I suspect it will confirm destruction of the distal phalanx of the right second toe with inflammation and fluid accumulation, Within the toe. I anticipate debridement of the right second toe potentially all the way to the metatarsal phalangeal joint. Sharply debrided the distal tip of the second right digit and milked approximately 1-1/2 to 2 cc of a greenish-brown purulent material consistent with pus. Culturette swab was utilized and a culture obtained from this deep specimen for Gram stain and sensitivities. Bone of the distal phalanx appears in the wound. Saline wet-to-dry dressings will be applied to the third digit on a every 12 basis. I agree with continuation of vancomycin and Zosyn pending culture reports. I discussed the need for debridement of the right second digit with Satnam reviewing the potential for local procedure versus assistance with anesthesia. Based on his neuropathy and my ability to block the second digit with local I am recommending that this be a local procedure. He also understands that the digit will not be closed primarily due to the infection and that revision procedure and/or healing by secondary intention is my intention. Risk and complications were reviewed including ongoing infection, pain, scarring, permanent loss of the second toe and the potential for more proximal tissue loss if he fails to thrive. All questions were answered in detail. He agrees to proceed tomorrow. I discussed the case with Mer Witt and George Storey who agree. Results Last Vital Signs Temp 37.2 C 11/30/19 15:25 Pulse 71 11/30/19 15:25 Resp 16 11/30/19 15:25 BP 104/65 11/30/19 15:25 Pulse Ox 93 L 11/30/19 16:50 Labs Result diagrams: 11/30/19 06:15 11/30/19 06:15 Labs: Laboratory Results - last 24 hr 11/29/19 11/29/19 11/29/19 22:00 22:00 22:00 WBC 9.95 RBC 4.87 Hgb 14.4 Hct 40.6 MCV 83.4 MCH 29.6 MCHC 35.5 RDW 14.2 H Plt Count 212 MPV 9.5 Immature Gran % 0.2 Neutrophils % 72.3 Lymphocytes % 19.9 Monocytes % 6.7 Eosinophils % 0.8 Basophils % 0.1 Absolute Neutrophils 7.19 H Absolute Lymphocytes 1.98 Absolute Monocytes 0.67 Absolute Eosinophils 0.08 Absolute Basophils 0.01 ESR Sodium 131 L Potassium 3.6 Chloride 95 L Carbon Dioxide 28.7 Anion Gap 7.3 BUN 24 H Creatinine 1.05 Estimated GFR/1.73 m2 >= 60.00 Glucose 318 H Hemoglobin A1c Lactate 1.5 H Calcium 9.1 Magnesium Total Bilirubin 0.7 AST 18 ALT 22 Alkaline Phosphatase 85 C-Reactive Protein Total Protein 8.2 Albumin 3.6 Urine Color Urine Clarity Urine pH Ur Specific [place] Urine Protein Urine Ketones Urine Blood Urine Nitrite Urine Bilirubin Urine Urobilinogen Ur Leukocyte Esterase Urine Glucose COVID-19 PCR Nasopharyn COVID-19 PCR Ref Test Perform Site 11/29/19 11/29/19 11/30/19 22:00 23:15 05:00 WBC RBC Hgb Hct MCV MCH MCHC RDW Plt Count MPV Immature Gran % Neutrophils % Lymphocytes % Monocytes % Eosinophils % Basophils % Absolute Neutrophils Absolute Lymphocytes Absolute Monocytes Absolute Eosinophils Absolute Basophils ESR Sodium Potassium Chloride Carbon Dioxide Anion Gap BUN Creatinine Estimated GFR/1.73 m2 Glucose Hemoglobin A1c 9.7 H Lactate Calcium Magnesium Total Bilirubin AST ALT Alkaline Phosphatase C-Reactive Protein Total Protein Albumin Urine Color Yellow Urine Clarity Clear Urine pH 5.5 Ur Specific [place] 1.025 Urine Protein Negative Urine Ketones Negative Urine Blood Negative Urine Nitrite Negative Urine Bilirubin Negative Urine Urobilinogen 0.2 Ur Leukocyte Esterase Negative Urine Glucose 500 H COVID-19 PCR Negative Nasopharyn COVID-19 PCR Not Applicable Ref Test Perform Site [place] [facility] lab 11/30/19 11/30/19 11/30/19 06:15 06:15 06:15 WBC RBC Hgb Hct MCV MCH MCHC RDW Plt Count MPV Immature Gran % Neutrophils % Lymphocytes % Monocytes % Eosinophils % Basophils % Absolute Neutrophils Absolute Lymphocytes Absolute Monocytes Absolute Eosinophils Absolute Basophils ESR 49 H Sodium Potassium Chloride Carbon Dioxide Anion Gap BUN Creatinine Estimated GFR/1.73 m2 Glucose Hemoglobin A1c Lactate Calcium Magnesium 2.0 Total Bilirubin AST ALT Alkaline Phosphatase C-Reactive Protein 19.04 H Total Protein Albumin Urine Color Urine Clarity Urine pH Ur Specific [place] Urine Protein Urine Ketones Urine Blood Urine Nitrite Urine Bilirubin Urine Urobilinogen Ur Leukocyte Esterase Urine Glucose COVID-19 PCR Nasopharyn COVID-19 PCR Ref Test Perform Site 11/30/19 11/30/19 06:15 06:15 WBC 10.06 RBC 4.53 Hgb 13.5 Hct 38.4 L MCV 84.8 MCH 29.8 MCHC 35.2 RDW 14.4 H Plt Count 192 MPV 9.5 Immature Gran % Neutrophils % Lymphocytes % Monocytes % Eosinophils % Basophils % Absolute Neutrophils Absolute Lymphocytes Absolute Monocytes Absolute Eosinophils Absolute Basophils ESR Sodium 133 L Potassium 3.4 L Chloride 98 Carbon Dioxide 27.2 Anion Gap 7.8 BUN 25 H Creatinine 1.21 Estimated GFR/1.73 m2 >= 60.00 Glucose 350 H Hemoglobin A1c Lactate Calcium 8.6 Magnesium Total Bilirubin 0.5 AST 10 L ALT 19 Alkaline Phosphatase 75 C-Reactive Protein Total Protein 7.1 Albumin 3.0 L Urine Color Urine Clarity Urine pH Ur Specific [place] Urine Protein Urine Ketones Urine Blood Urine Nitrite Urine Bilirubin Urine Urobilinogen Ur Leukocyte Esterase Urine Glucose COVID-19 PCR Nasopharyn COVID-19 PCR Ref Test Perform Site
[2019-12-01] VITALS (8 sets, daily range): BP systolic 111–133; BP diastolic 68–81; PULSE 84–94; RESP 17–20; TEMP 36.2–37.2; O2SAT 93–97
[2019-12-01] MEDS: PIPERACILLIN/TAZO 4.5 GM in Normal Saline 100 ML IVPB ×2 (01:40→08:04)
[2019-12-01] MEDS: HYDROcodone 5/Acetaminophen 325 TAB PO ×2 (01:45→08:03)
--- NOTE | 2019-12-01 06:30 | DI.MRI_ITS ---
EXAM: MR LOWER EXTREMITY RT WO/W CLINICAL HISTORY: ? OSTEOMYELITIS,GANGRENOUS AND CELLULITIS RT 2ND TOE. TECHNIQUE: Multiplanar multisequence MRI was performed. COMPARISON: CR,XR XR FOOT RT COMPLETE from 11/29/2019 FINDINGS: MR examination of the forefoot was performed according to the usual protocol with additional pre and post contrast T1 fat sat imaging. There is reportedly suspicion of osteomyelitis the 2nd toe. Apart from degenerative changes the great toe is unremarkable in appearance. The 2nd toe shows soft tissue deformity and soft tissue swelling particularly distally. There is mar kedly abnormal signal of distal phalanx which shows marked enhancement as well a post contrast images . The findings are highly suggestive of osteomyelitis of the distal phalanx. Mildly abnormal marrow signal noted in the middle phalanx of the 2nd toe without evidence of cortical destruction by MR cri teria. Question slight enhancement middle phalanx of the 2nd toe as well. Additionally there is question of very minimally abnormal signal of the distal phalanx of the 3rd toe and question of slight enhancement of the distal phalanx of the 3rd toe on post contrast imaging. C linical correlation requested regarding any possibility 3rd toe osteomyelitis. No significant ligamentous or tendinous abnormalities. No evidence of abscess formation in the foref oot region. IMPRESSION: Findings consistent with osteomyelitis of distal phalanx of the 2nd toe. Osteomyelitis of middle pha lanx of the 2nd toe and distal phalanx of the 3rd toe not excluded. Please correlate clinically. DATA REPOSITORY:
[2019-12-01] MEDS: Albuterol HFA 8 GM 60 PUFF INH IH (06:55)
[2019-12-01 07:09] LABS: Abs Immature Grans 0.02 k/cumm (0.0-0.09); Absolute Basophil Count 0.01 k/cumm (0.0-0.2); Absolute Monocyte Count 0.46 k/cumm (0.11-0.7); Basophils % 0.1; Eosinophils % 1.5; HCT 37.3 % (40.0-50.0); HGB 12.4 g/dL (13.5-17.5); Immature Grans % 0.3 %; Lymphocytes % 23.8; Mean Corp. HGB Concentration 33.2 g/dL (32.0-36.0); Mean Corpuscular Hemoglobin 28.6 pg (27.0-33.0); Mean Corpuscular Volume 85.9 fL (80-95); Mean Platelet Volume 9.3 fL (8.0-11.0); Monocytes % 6.8; Neutrophils % 67.5; Platelet Count 186 x1000/uL (130-400); RBC 4.34 m/cumm (4.50-6.00); RBC Distribution Width 14.2 % (11.8-14.1); White Blood Cell Count 6.72 k/cumm (4.4-10.8)
[2019-12-01 07:14] LABS: Absolute Neutrophil Count 4.54 k/cumm (1.2-6.7)
[2019-12-01 07:18] LABS: Anion Gap 8.3 mmol/L (3-11); BUN 16 mg/dL (7-18); CO2 26.7 mmol/L (21.0-32.0); CREATININE 0.83 mg/dL (0.70-1.30); Chloride 104 mmol/L (98-107); Glucose 170 mg/dL (74-106); Potassium 3.7 mmol/L (3.5-5.1); Sodium 139 mmol/L (136-145)
[2019-12-01] MEDS: Budesonide/Formoterol 160/4.5 6 GM 60 PUFF INH IH ×2 (07:31→19:40)
[2019-12-01 07:40] LABS: Procalcitonin 0.1 ng/mL
[2019-12-01] MEDS: Omeprazole 20 MG CAPCR PO (08:01)
[2019-12-01] MEDS: Insulin Aspart 300 UNITS/3 ML PEN SC ×4 (08:01→21:55)
[2019-12-01] MEDS: Normal Saline 1,000 ML 125 ML IV ×2 (09:14→19:41)
--- NOTE | 2019-12-01 09:45 | W.PM.PROGNOT ---
Date of Service Date of service: 12/01/19 Time of Service: 09:48 Assessment and Plan Assessment and plan (1) Cellulitis and abscess of foot: Start date: 12/01/19 Start time: 09:57 Status: Acute Assessment and plan: Poorly controlled diabetes with A1C 9.1, Right ankle with swelling and decreased range of motion with possible Charcot joint. Right foot with swollen and cyanotic second toe with dry gangrene over the distal toe which is ulcerated with local tissue destruction. There is erythema over the top of the right foot proximal to the second toe and up onto the pretibial area centrally with increased warmth to touch. I&D performed by Dr. Roche yesterday Plan for OR for debridment with possible amputation of toe by Dr. Roche this afternoon Obi and sathya for coverage, (2) Peripheral neuropathy: Start date: 12/01/19 Start time: 10:20 Status: Acute Assessment and plan: Most likely secondary to diabetes and is compromising the patient's foot care. He does have deformities of his feet chronically in the second and third toes with trauma to the tips of these toes. He also appears to have possible right Charcot joint of the ankle. He denies pain to feet. Control diabetes with insulin while in hospital with target goal 180, fingersticks in 200's on resistant, Will add low dose lantus to regimen and evaluate Qualifiers: Peripheral neuropathy type: polyneuropathy associated with underlying disease Qualified Code(s): G63 - Polyneuropathy in diseases classified elsewhere (3) Non-insulin dependent type 2 diabetes mellitus: Start date: 12/01/19 Start time: 10:23 Status: Chronic Assessment and plan: On metformin and poorly controlled with a hemoglobin A1c 9.7 today. Patient needs follow-up with his PMD as an outpatient for better glycemic control. See above, will add lantus 8 units to regimen (4) Tobacco abuse: Start date: 12/01/19 Start time: 10:23 Status: Acute Assessment and plan: Advised tobacco cessation long-term. NicoDerm patch while the patient is in the hospital. Above case discussed with Dr. Hernandez who is in agreement. Subjective Subjective Patient reports: no new complaints Interval history since last seen: Pain controlled with medication. Plan for OR with Dr. Roche today this afternoon. Local only. He denies CP, SOB, N/v/D. Exam Narrative Exam Narrative: Const: middle aged sitting up in bed AAOx3 answering question appropriately. Eyes: PERRLA, EOMI Neck: no lymphedema Resp: LSCB, no wheezing, rhonchi or rales Cardio: RRR no murmurs or gallop GI: BSx4 : voiding without difficulty Extrem: right foot with erythema to doral aspect from second toe. Second toe with odorous purulent drainage eschar and erythema Objective Objective Clinical Data: Abnormal lab results 12/01/19 12/01/19 Range/Units 06:10 06:10 RBC 4.34 L (4.50-6.00) m/cumm Hgb 12.4 L (13.5-17.5) g/dL Hct 37.3 L (40.0-50.0) % RDW 14.2 H (11.8-14.1) % Glucose 170 H D (74-106) mg/dL Calcium 8.0 L (8.5-10.1) mg/dL Vital Signs Temperature 36.7 C 12/01/19 07:42 Temperature Source Tympanic 12/01/19 07:42 Pulse 94 H 12/01/19 07:42 Pulse Rhythm Regular 12/01/19 01:40 Respiratory Rate 18 12/01/19 07:42 Respiratory Effort 12/01/19 01:40 Respiratory Depth Normal 12/01/19 01:40 Respiratory Pattern Normal 12/01/19 01:40 Blood Pressure 111/68 12/01/19 07:42 Pulse Oximetry 97 12/01/19 07:58 Oxygen Delivery Method Room Air 12/01/19 07:58 Oxygen Flow Rate 0 12/01/19 07:58 Pain Level 7 12/01/19 08:03 Comment 11/30/19 05:39 Intake & Output 11/30/19 11/30/19 12/01/19 11:59 23:59 11:59 Intake Total 1450 / 2900 1450 / 2900 1160 / 1160 Output Total 700 / 2450 1750 / 2450 650 / 650 Balance 750 / 450 -300 / 450 510 / 510 Weight 106.8 kg 107.1 kg Intake: IV 1450 / 2900 1450 / 2900 1100 / 1100 Oral 60 / 60 Output: Urine 700 / 2450 1750 / 2450 650 / 650 Other: Urine Color Light Nahed Light Nahed Yellow Straw Urine Appearance Clear Clear Clear Urine Odor Normal Voiding Methods Urinal Urinal Urinal Laboratory Results WBC 6.72 k/cumm (4.4-10.8) D 12/01/19 06:10 RBC 4.34 m/cumm (4.50-6.00) L 12/01/19 06:10 Hgb 12.4 g/dL (13.5-17.5) L 12/01/19 06:10 Hct 37.3 % (40.0-50.0) L 12/01/19 06:10 MCV 85.9 fL (80-95) 12/01/19 06:10 MCH 28.6 pg (27.0-33.0) 12/01/19 06:10 MCHC 33.2 g/dL (32.0-36.0) 12/01/19 06:10 RDW 14.2 % (11.8-14.1) H 12/01/19 06:10 Plt Count 186 x1000/uL (130-400) 12/01/19 06:10 MPV 9.3 fL (8.0-11.0) 12/01/19 06:10 Immature Gran % 0.3 % 12/01/19 06:10 Neutrophils % 67.5 12/01/19 06:10 Lymphocytes % 23.8 12/01/19 06:10 Monocytes % 6.8 12/01/19 06:10 Eosinophils % 1.5 12/01/19 06:10 Basophils % 0.1 12/01/19 06:10 Absolute Neutrophils 4.54 k/cumm (1.2-6.7) 12/01/19 06:10 Absolute Lymphocytes 1.60 k/cumm (1.2-3.4) 12/01/19 06:10 Absolute Monocytes 0.46 k/cumm (0.11-0.7) 12/01/19 06:10 Absolute Eosinophils 0.10 k/cumm (0.0-0.7) 12/01/19 06:10 Absolute Basophils 0.01 k/cumm (0.0-0.2) 12/01/19 06:10 ESR 49 mm/hr (0-15) H 11/30/19 06:15 Sodium 139 mmol/L (136-145) 12/01/19 06:10 Potassium 3.7 mmol/L (3.5-5.1) 12/01/19 06:10 Chloride 104 mmol/L (98-107) 12/01/19 06:10 Carbon Dioxide 26.7 mmol/L (21.0-32.0) 12/01/19 06:10 Anion Gap 8.3 mmol/L (3-11) 12/01/19 06:10 BUN 16 mg/dL (7-18) D 12/01/19 06:10 Creatinine 0.83 mg/dL (0.70-1.30) 12/01/19 06:10 Estimated GFR/1.73 m2 >= 60.00 (mL/min/1.73m2) 12/01/19 06:10 Glucose 170 mg/dL (74-106) H D 12/01/19 06:10 Hemoglobin A1c 9.7 % (3.8-5.6) H 11/29/19 22:00 Lactate 1.5 mmol/L (0.6-1.4) H 11/29/19 22:00 Calcium 8.0 mg/dL (8.5-10.1) L 12/01/19 06:10 Magnesium 2.0 mg/dL (1.8-2.4) 11/30/19 06:15 Total Bilirubin 0.5 mg/dL (0.2-1.0) 11/30/19 06:15 AST 10 U/L (15-37) L 11/30/19 06:15 ALT 19 U/L (16-63) 11/30/19 06:15 Alkaline Phosphatase 75 U/L (46-116) 11/30/19 06:15 C-Reactive Protein 19.04 mg/dL (0.0-0.3) H 11/30/19 06:15 Total Protein 7.1 g/dL (6.4-8.2) 11/30/19 06:15 Albumin 3.0 g/dL (3.4-5.0) L 11/30/19 06:15 Procalcitonin 0.1 ng/mL 12/01/19 06:10 Urine Color Yellow (Yellow) 11/30/19 05:00 Urine Clarity Clear (Clear) 11/30/19 05:00 Urine pH 5.5 (5-8) 11/30/19 05:00 Ur Specific [place] 1.025 (1.005-1.025) 11/30/19 05:00 Urine Protein Negative mg/dL (Negative) 11/30/19 05:00 Urine Ketones Negative mg/dL (Negative) 11/30/19 05:00 Urine Blood Negative (Negative) 11/30/19 05:00 Urine Nitrite Negative (Negative) 11/30/19 05:00 Urine Bilirubin Negative (Negative) 11/30/19 05:00 Urine Urobilinogen 0.2 EU/dL (Up TO 0.2) 11/30/19 05:00 Ur Leukocyte Esterase Negative (Negative) 11/30/19 05:00 Urine Glucose 500 mg/dL (Negative) H 11/30/19 05:00 COVID-19 PCR Negative (Negative) 11/29/19 23:15 Nasopharyn COVID-19 PCR Not Applicable 11/29/19 23:15 Ref Test [facility] 11/29/19 23:15
--- NOTE | 2019-12-01 10:23 | NUR.NOTE ---
Nursing Note: At 1020 on 12/01/19, this RN received a call from the laboratory regarding the wound culture result for this pt. Per the laboratory, strep B was noted in the wound in the pt.'s right foot. Charge nurse and MD notified at this time.
[2019-12-01] MEDS: Gadoterate meglumine 20 ML VIAL IVP (10:48)
[2019-12-01] MEDS: Normal Saline Flush 10 ML SYR IVP ×2 (10:49→12:46)
--- NOTE | 2019-12-01 11:34 | W.NUTRFU ---
Date of service: 12/01/19 Time of Service: 11:34 Nutritional Follow up NOTE: Attempted to visit Satnam today, but was out of room. Diabetes Inpatient Consult received. Will follow when available. Recommend active liquid protein supplements TID as with increased protein needs for healing of abscess on foot. Time Spent in Nutritional Counseling and Treatment: 0
[2019-12-01] MEDS: Bupivacaine 0.5% Pres-Free 30 ML VIAL (12:15)
[2019-12-01] MEDS: Lidocaine 1% Pres-Free 5 ML VIAL (12:16)
--- NOTE | 2019-12-01 12:16 | NUR.NOTE ---
Nursing Note: 1030 pt taken to MRI via w/c, 1130 report given to OR nurse pt going for procedure on right 2nd great toe.
--- NOTE | 2019-12-01 12:25 | AMP_PTH ---
PATIENT: Satnam Swan LOC: U#:[id number] AGE/SX: 49/M ROOM: RE11/29/[address]: Shashi Osborn : 1970 BED: A DIS: 12/03/2019 SPEC #: [id number] RECD: 12/01/19 12:53 STATUS: [place] REQ #: [id number] DARLENE: 12/01/19 12:[address]: Pete Gamboa DEPT: Surgical Specimen RECD BY: Aislinn Cuevas ENTERED: 12/01/19 12:55 SP TYPE: Amputation OTHR DR: Chely Olivera Craig S Tissues: 1 - AMPUTATION FINGERS/TOES(NOT TRAUMA) Procedures: GROSS AND MICRO LEVEL 4 DECALCIFICATION Comments: [id number]
--- NOTE | 2019-12-01 12:39 | W.PM.OP ---
Date of service: 12/01/19 Time of Service: 12:39 Operative Note Operative Note DATE OF PROCEDURE: 12/01/19 PRE-OP DIAGNOSIS: Osteomyelitis with gangrene right second toe POST-OP DIAGNOSIS: same PROCEDURE: Debridement right second toe to the proximal phalanx SURGEON: Jordin Roche ANESTHESIA: local ESTIMATED BLOOD LOSS: 1 PATHOLOGY: other (Tissue right second toe containing the middle and distal phalanges right and notes grade 08 and head of proximal phalanx) COMPLICATIONS: None Patient was transported to: floor Patient's condition: stable Indications: 49-year-old male poorly controlled diabetic with abscess cellulitis gangrene and confirmed osteomyelitis affecting the right second toe. He is being brought to the OR for surgical debridement removal of infected tissue Procedure Description: Satnam was brought to the operative suite placed in supine position with a right foot prepped and draped in usual sterile podiatric fashion. Timeout was performed per protocol. Anesthesia was obtained utilizing 10 cc 50: 50 mixture, 1% lidocaine plain, 0.5% Marcaine plain. The digit shows wet gangrenous change from the middle phalanx to the distal tip with heavy Zabrina appreciated. The surface skin is friable and necrotic in appearance. Pus is noted with gentle compression of the digit coming from the distal tip of the digit. Erythema extends to the distal metatarsal region and cellulitis which has been to the midfoot has now receded more distally towards the toe. Dorsal incision was placed at the level of the proximal interphalangeal joint to raise a dorsal flap utilizing a #15 scalpel. This was brought down to the extensor tendon. The incision was then carried medially and laterally to the plantar aspect of the toe once again to raise a plantar flap. Bleeding was encountered at this level no purulence was seen. Extensor tendon was severed at the joint level and the medial lateral collateral released. The flexor tendon was likewise severed and the distal portion of the toe removed from the surgical field and sent to pathology. Due to the poor quality of soft tissue further debridement was performed I resected the head of the proximal phalanx and copiously irrigated the wound. All rough and bony edges were rasped move irrigation was performed once again. At this level the tissue appeared healthy with active bleeding appreciated. Quarter inch iodoform gauze was inserted in the medial and lateral side of the digit and a single near far far near suture of 3-0 nylon was performed to bring the skin edges together in the central portion of the wound. Xeroform gauze fluff compression dressings were applied. Satnam left the OR vital signs stable vascular status intact sharp and sponge counts correct he will be followed by myself while he remains in house for continued bedrest and IV antibiotics.
[2019-12-01] MEDS: Nicotine 21 MG/24 HR PATCH TD (12:46)
--- NOTE | 2019-12-01 13:43 | CHAPLAIN ---
Satnam was up in his chair when I visited. I introduced myseslf and explained my role. He told me he'd just had is toe amputated and he's hoping that will take of the infection he's had. Satnam identified his mom as a source of support. She lives in [facility] and they are in touch by phone. Satnam asked about adding KELLY and his assistant chief nursing officer to his contact lists. I told him I would let his customer care professional, Erika know about that.
--- NOTE | 2019-12-01 14:37 | CMPROGNOTE_ITS ---
Care Management Progress Note S/O: Satnam was brought to the OR today with Dr. Roche. Awaiting treatment recommendations and determination for IV ABX course. Satnam was sleeping soundly this afternoon, CM did not disturb him. CM continues to follow. A: 49 year old male admitted to [facility] 11/29/19 for Cellulitis w/abcess RT Foot, neuropathy with NIKKM, PVD P: Undetermined course of treatment at this time. Satnam will see Podiatry and Diabetes Education tomorrow, anticipate Dr. Roche will advise next steps in treatment. CM continues to follow.
[2019-12-01] MEDS: guaiFENesin 600 MG TABCR PO (19:40)
[2019-12-01] MEDS: Insulin Glargine 300 UNITS/3 ML PEN 8 UNITS SC (21:55)
[2019-12-02 02:55] VITALS: BP 127/87; PULSE 85; RESP 19; TEMP 36; O2SAT 97
[2019-12-02] MEDS: Normal Saline Flush 10 ML SYR IVP (04:18)
[2019-12-02] MEDS: Normal Saline 1,000 ML 125 ML IV (06:45)
[2019-12-02 07:12] LABS: Anion Gap 6.4 mmol/L (3-11); BUN 10 mg/dL (7-18); CO2 26.6 mmol/L (21.0-32.0); CREATININE 0.71 mg/dL (0.70-1.30); Chloride 105 mmol/L (98-107); Glucose 157 mg/dL (74-106); Potassium 3.6 mmol/L (3.5-5.1); Sodium 138 mmol/L (136-145)
[2019-12-02] MEDS: Budesonide/Formoterol 160/4.5 6 GM 60 PUFF INH IH ×2 (07:43→19:28)
[2019-12-02 07:57] LABS: Abs Immature Grans 0.01 k/cumm (0.0-0.09); Absolute Basophil Count 0.01 k/cumm (0.0-0.2); Absolute Monocyte Count 0.41 k/cumm (0.11-0.7); Absolute Neutrophil Count 3.47 k/cumm (1.2-6.7); Basophils % 0.2; Eosinophils % 1.9; HCT 37.8 % (40.0-50.0); HGB 12.8 g/dL (13.5-17.5); Immature Grans % 0.2 %; Lymphocytes % 25.9; Mean Corp. HGB Concentration 33.9 g/dL (32.0-36.0); Mean Corpuscular Hemoglobin 29.3 pg (27.0-33.0); Mean Corpuscular Volume 86.5 fL (80-95); Mean Platelet Volume 9.5 fL (8.0-11.0); Monocytes % 7.6; Neutrophils % 64.2; Platelet Count 180 x1000/uL (130-400); RBC 4.37 m/cumm (4.50-6.00)
[2019-12-02] MEDS: guaiFENesin 600 MG TABCR PO ×2 (07:57→19:29)
[2019-12-02] MEDS: Insulin Aspart 300 UNITS/3 ML PEN SC ×4 (07:57→21:47)
[2019-12-02] MEDS: Omeprazole 20 MG CAPCR PO (07:57)
[2019-12-02 08:13] VITALS: BP 130/86; PULSE 83; RESP 18; TEMP 36.3; O2SAT 96
--- NOTE | 2019-12-02 10:16 | DM INPTCON_ITS ---
Date of service: 12/02/19 Time of Service: 10:16 Diabetes Inpatient Consult DESCRIPTION/ASSESSMENT: 49 year old male admitted with osteomylitis with gangrene right second toe. PMH: COPD, CAD, DM2. Met with Satnam today for Diabetic Education due to uncontrolled diabetes with recent A1C of 9.7%(11/29/19). He states that he lost over 100 lbs in last 5 years by eating only once daily. Home meds include metformin 500 mg, was not checking BS regularly. He also reports that his lack of dentition, makes it difficult for him to eat many fruits and vegetables. Reports that he typically drinks coffee and diet soda during day and has a home cooked meal at night, along with snacking in evening. Does indicates that he has been drinking regular soda lately that me be contributing to elevated A1C. Estimated Needs: [id number] kcal, 78-93 g protein, 3200 ml. INTERVENTION: Provided education on DM including Hyper/hypoglycemia s/s with action plan for each scenario. Definition and types of CHO with examples, CHO counting, DASH diet materials, DM meal planning and label reading literature. Provided a blood sugar and food record chart and materials to reiterate CHO counting techniques. Reviewed desirable BG levels with patient with food choices and portions for optimal outcomes. Provided contact information for this RD and encouraged him to call with any f/u questions r/t to DM self management. CDM from kitchen has been helping to count his CHO's and achieve intake of ~65 g/CHO per meal period. Plan: Satnam will review literature provided and arrange for outpatient diabetes management for support of DM self management for optimal blood sugar control. Time Spent in Nutritional Counseling and Treatment: 20 minutes
[2019-12-02 11:05] VITALS: BP 126/81; PULSE 84; RESP 18; TEMP 36.7; O2SAT 96
[2019-12-02] MEDS: Amoxicillin 875/Clav. 125 TAB PO ×2 (11:40→19:29)
[2019-12-02] MEDS: Nicotine 21 MG/24 HR PATCH TD (12:42)
--- NOTE | 2019-12-02 12:44 | PGE_ITS ---
Date of Service Date of service: 12/02/19 Time of Service: 12:45 Assessment and Plan Assessment and plan (1) Cellulitis and abscess of foot: Status: Acute Assessment and plan: s/p amputation of 2nd toe right foot post op day 1. wound culture grew group B strep. he will need 2 weeks of antibiotics which was changed to augmentin day 07/15 in diabetic with foot infection. wound dressing to be changed by Dr Roche at his post operative appointment on . drains removed and dressing changed today per Dr Roche. wound reportedly healing as expected with no complications noted. check CRP and sed rate in the am. (2) Non-insulin dependent type 2 diabetes mellitus: Status: Chronic Assessment and plan: continue diabetic diet, blood sugar checks ac/hs with sliding scale coverage. his metformin had been placed on hold but will be resumed at increased dose of 500 mg PO bid. reports he has some loose stooling associated with metformin and will monitor for worsening symptoms. discussed goal of 1000 mg po bid and possibly adding trulicity which a request has been sent to pcp office for prior authorization and further outpatient follow up and monitoring. patient is agreeable to this plan. (3) COPD (chronic obstructive pulmonary disease): Status: Chronic Assessment and plan: stable, continue home inhalers (4) GERD (gastroesophageal reflux disease): Status: Chronic Assessment and plan: stable, continue PPI (5) DVT prophylaxis: Status: Acute Assessment and plan: heparin subcu (6) Discharge planning issues: Status: Acute Assessment and plan: discharge to home tomorrow. will see Dr Roche in the office for follow up and dressing change on . case and plan of care discussed with Dr Roche and Dr Osborn who are both in agreement. Subjective Subjective Patient reports: no new complaints, feels better, tolerating liquids well, tolerating a regular diet and afebrile Interval history since last seen: no pain, Exam Const General: cooperative, comfortable and no acute distress Nutritional Appearance: overweight Orientation: alert, awake and oriented x3 HENMT Head: normal to inspection, normocephalic and atraumatic Resp Effort & Inspection: normal respiratory effort Auscultation: clear to auscultation bilaterally Cardio Rate: regular rate Rhythm: regular rhythm GI Inspection: normal to inspection Palpation: soft Auscultation: normal bowel sounds Skin General skin exam: no rashes or lesions noted Neuro General: patient alert, patient awake and patient oriented x3 Cranial Nerves: CN's II-XI intact bilaterally Extrem General: full ROM and no pedal edema Right lower extremity: no joint enlargement and foot (dressing intact no drainage noted, no erythema proximal, post op shoe) Objective Objective Clinical Data: Abnormal lab results 12/02/19 12/02/19 Range/Units 06:26 06:26 RBC 4.37 L (4.50-6.00) m/cumm Hgb 12.8 L (13.5-17.5) g/dL Hct 37.8 L (40.0-50.0) % Glucose 157 H (74-106) mg/dL Calcium 8.0 L (8.5-10.1) mg/dL Vital Signs Temperature 36.7 C 12/02/19 11:05 Temperature Source Tympanic 12/02/19 11:05 Pulse 84 12/02/19 11:05 Pulse Rhythm Regular 12/02/19 08:07 Respiratory Rate 18 12/02/19 11:05 Respiratory Effort Non-Labored 12/02/19 08:07 Respiratory Depth Normal 12/02/19 08:07 Respiratory Pattern Normal 12/02/19 08:07 Blood Pressure 126/81 12/02/19 11:05 Pulse Oximetry 96 12/02/19 11:05 Oxygen Delivery Method Room Air 12/02/19 11:05 Oxygen Flow Rate 0 12/02/19 11:05 Pain Level 0 12/02/19 11:05 Comment 11/30/19 05:39 Intake & Output 12/01/19 12/02/19 12/02/19 23:59 11:59 23:59 Intake Total 1580 / 3080 1360 / 1360 Output Total 1299 675 / 675 Balance 280 / 1030 685 / 685 Weight 108.2 kg Intake: IV 1100 / 2300 1110 / 1110 Oral 480 / 780 250 / 250 Output: Urine 1299 / 2049 675 / 675 Other: Urine Color Yellow Straw Urine Appearance Clear Clear Urine Odor Normal None Stool Size Moderate Stool Characteristics Soft Voiding Methods Urinal Urinal Laboratory Results WBC 5.40 k/cumm (4.4-10.8) 12/02/19 06:26 RBC 4.37 m/cumm (4.50-6.00) L 12/02/19 06:26 Hgb 12.8 g/dL (13.5-17.5) L 12/02/19 06:26 Hct 37.8 % (40.0-50.0) L 12/02/19 06:26 MCV 86.5 fL (80-95) 12/02/19 06:26 MCH 29.3 pg (27.0-33.0) 12/02/19 06:26 MCHC 33.9 g/dL (32.0-36.0) 12/02/19 06:26 RDW 14.0 % (11.8-14.1) 12/02/19 06:26 Plt Count 180 x1000/uL (130-400) 12/02/19 06:26 MPV 9.5 fL (8.0-11.0) 12/02/19 06:26 Immature Gran % 0.2 % 12/02/19 06:26 Neutrophils % 64.2 12/02/19 06:26 Lymphocytes % 25.9 12/02/19 06:26 Monocytes % 7.6 12/02/19 06:26 Eosinophils % 1.9 12/02/19 06:26 Basophils % 0.2 12/02/19 06:26 Absolute Neutrophils 3.47 k/cumm (1.2-6.7) 12/02/19 06:26 Absolute Lymphocytes 1.40 k/cumm (1.2-3.4) 12/02/19 06:26 Absolute Monocytes 0.41 k/cumm (0.11-0.7) 12/02/19 06:26 Absolute Eosinophils 0.10 k/cumm (0.0-0.7) 12/02/19 06:26 Absolute Basophils 0.01 k/cumm (0.0-0.2) 12/02/19 06:26 ESR 49 mm/hr (0-15) H 11/30/19 06:15 Sodium 138 mmol/L (136-145) 12/02/19 06:26 Potassium 3.6 mmol/L (3.5-5.1) 12/02/19 06:26 Chloride 105 mmol/L (98-107) 12/02/19 06:26 Carbon Dioxide 26.6 mmol/L (21.0-32.0) 12/02/19 06:26 Anion Gap 6.4 mmol/L (3-11) 12/02/19 06:26 BUN 10 mg/dL (7-18) D 12/02/19 06:26 Creatinine 0.71 mg/dL (0.70-1.30) 12/02/19 06:26 Estimated GFR/1.73 m2 >= 60.00 (mL/min/1.73m2) 12/02/19 06:26 Glucose 157 mg/dL (74-106) H 12/02/19 06:26 Hemoglobin A1c 9.7 % (3.8-5.6) H 11/29/19 22:00 Lactate 1.5 mmol/L (0.6-1.4) H 11/29/19 22:00 Calcium 8.0 mg/dL (8.5-10.1) L 12/02/19 06:26 Magnesium 2.0 mg/dL (1.8-2.4) 11/30/19 06:15 Total Bilirubin 0.5 mg/dL (0.2-1.0) 11/30/19 06:15 AST 10 U/L (15-37) L 11/30/19 06:15 ALT 19 U/L (16-63) 11/30/19 06:15 Alkaline Phosphatase 75 U/L (46-116) 11/30/19 06:15 C-Reactive Protein 19.04 mg/dL (0.0-0.3) H 11/30/19 06:15 Total Protein 7.1 g/dL (6.4-8.2) 11/30/19 06:15 Albumin 3.0 g/dL (3.4-5.0) L 11/30/19 06:15 Procalcitonin 0.1 ng/mL 12/01/19 06:10 Urine Color Yellow (Yellow) 11/30/19 05:00 Urine Clarity Clear (Clear) 11/30/19 05:00 Urine pH 5.5 (5-8) 11/30/19 05:00 Ur Specific [place] 1.025 (1.005-1.025) 11/30/19 05:00 Urine Protein Negative mg/dL (Negative) 11/30/19 05:00 Urine Ketones Negative mg/dL (Negative) 11/30/19 05:00 Urine Blood Negative (Negative) 11/30/19 05:00 Urine Nitrite Negative (Negative) 11/30/19 05:00 Urine Bilirubin Negative (Negative) 11/30/19 05:00 Urine Urobilinogen 0.2 EU/dL (Up TO 0.2) 11/30/19 05:00 Ur Leukocyte Esterase Negative (Negative) 11/30/19 05:00 Urine Glucose 500 mg/dL (Negative) H 11/30/19 05:00 Vancomycin Trough Cancelled 12/01/19 15:00 COVID-19 PCR Negative (Negative) 11/29/19 23:15 Nasopharyn COVID-19 PCR Not Applicable 11/29/19 23:15 Ref Test Perform Site [facility] 11/29/19 23:15
--- NOTE | 2019-12-02 12:46 | W.PM.PROGNOT ---
Date of Service Date of service: 12/02/19 Time of Service: 12:47 Subjective Subjective Patient reports: feels better and pain is less Exam Narrative Exam Narrative: 24 hours status post debridement?amputation right second toe to the distal third of the proximal phalanx. Patient states he has no pain in the foot and the discomfort he had in his ankle area has completely resolved. 1 labs are reviewed. Microbiology results strep group B agalactiae. Antibiotics have been switched to p.o. Augmentin 875 twice daily. Dressings are removed from his right foot. The erythema and cellulitis is mostly resolved. The stub of the second toe is pink and healthy. Good capillary return is appreciated the wound edges are viable. I remove the iodoform garry slight bloody drainage was noted no sign of sepsis. The wound was cleansed with Betadine paint and dressed with Xeroform fluff Kerlix flex net and Dejon wrap.. Impressions: 24 hours status post debridement right second toe to healthy tissue for correction osteomyelitis gangrene cellulitis Plan: Clinically I believe the osteomyelitic bone has been resected and he should be able to successfully complete a two-week course of oral antibiotics to resolve this problem. He agrees to stay 1 more day to receive bed rest and antibiotics he will be discharged to home tomorrow. He is fully aware that he needs to keep his physical activities down to a minimum, keep his foot elevated to allow the wound to heal and the infection to resolve. Plan on seeing him in the office on for ongoing wound care and management. Discussed the case with the acting hospitalists who are in agreement. Objective Objective Clinical Data: Abnormal lab results 12/02/19 12/02/19 Range/Units 06:26 06:26 RBC 4.37 L (4.50-6.00) m/cumm Hgb 12.8 L (13.5-17.5) g/dL Hct 37.8 L (40.0-50.0) % Glucose 157 H (74-106) mg/dL Calcium 8.0 L (8.5-10.1) mg/dL Vital Signs Temperature 36.7 C 12/02/19 11:05 Temperature Source Tympanic 12/02/19 11:05 Pulse 84 12/02/19 11:05 Pulse Rhythm Regular 12/02/19 08:07 Respiratory Rate 18 12/02/19 11:05 Respiratory Effort Non-Labored 12/02/19 08:07 Respiratory Depth Normal 12/02/19 08:07 Respiratory Pattern Normal 12/02/19 08:07 Blood Pressure 126/81 12/02/19 11:05 Pulse Oximetry 96 12/02/19 11:05 Oxygen Delivery Method Room Air 12/02/19 11:05 Oxygen Flow Rate 0 12/02/19 11:05 Pain Level 0 12/02/19 11:05 Comment 11/30/19 05:39 Intake & Output 12/01/19 12/02/19 12/02/19 18:59 06:59 18:59 Intake Total 2555 / 3705 1150 / 3705 260 / 260 Output Total 1250 / 2200 950 / 2200 225 / 225 Balance 1305 / 1505 200 / 1505 35 / 35 Weight 108.2 kg Intake: IV 1775 / 2925 1150 / 2925 10 / 10 Oral 780 / 780 250 / 250 Output: Urine 1250 / 2200 950 / 2200 225 / 225 Other: Urine Color Light Nahed Yellow Straw Urine Appearance Clear Clear Clear Urine Odor Normal None Stool Size Moderate Stool Characteristics Soft Voiding Methods Urinal Urinal Laboratory Results WBC 5.40 k/cumm (4.4-10.8) 12/02/19 06:26 RBC 4.37 m/cumm (4.50-6.00) L 12/02/19 06:26 Hgb 12.8 g/dL (13.5-17.5) L 12/02/19 06:26 Hct 37.8 % (40.0-50.0) L 12/02/19 06:26 MCV 86.5 fL (80-95) 12/02/19 06:26 MCH 29.3 pg (27.0-33.0) 12/02/19 06:26 MCHC 33.9 g/dL (32.0-36.0) 12/02/19 06:26 RDW 14.0 % (11.8-14.1) 12/02/19 06:26 Plt Count 180 x1000/uL (130-400) 12/02/19 06:26 MPV 9.5 fL (8.0-11.0) 12/02/19 06:26 Immature Gran % 0.2 % 12/02/19 06:26 Neutrophils % 64.2 06/02/20 06:26 Lymphocytes % 25.9 12/02/19 06:26 Monocytes % 7.6 12/02/19 06:26 Eosinophils % 1.9 12/02/19 06:26 Basophils % 0.2 12/02/19 06:26 Absolute Neutrophils 3.47 k/cumm (1.2-6.7) 12/02/19 06:26 Absolute Lymphocytes 1.40 k/cumm (1.2-3.4) 12/02/19 06:26 Absolute Monocytes 0.41 k/cumm (0.11-0.7) 12/02/19 06:26 Absolute Eosinophils 0.10 k/cumm (0.0-0.7) 12/02/19 06:26 Absolute Basophils 0.01 k/cumm (0.0-0.2) 12/02/19 06:26 ESR 49 mm/hr (0-15) H 11/30/19 06:15 Sodium 138 mmol/L (136-145) 12/02/19 06:26 Potassium 3.6 mmol/L (3.5-5.1) 12/02/19 06:26 Chloride 105 mmol/L (98-107) 12/02/19 06:26 Carbon Dioxide 26.6 mmol/L (21.0-32.0) 12/02/19 06:26 Anion Gap 6.4 mmol/L (3-11) 12/02/19 06:26 BUN 10 mg/dL (7-18) D 12/02/19 06:26 Creatinine 0.71 mg/dL (0.70-1.30) 12/02/19 06:26 Estimated GFR/1.73 m2 >= 60.00 (mL/min/1.73m2) 12/02/19 06:26 Glucose 157 mg/dL (74-106) H 12/02/19 06:26 Hemoglobin A1c 9.7 % (3.8-5.6) H 11/29/19 22:00 Lactate 1.5 mmol/L (0.6-1.4) H 11/29/19 22:00 Calcium 8.0 mg/dL (8.5-10.1) L 12/02/19 06:26 Magnesium 2.0 mg/dL (1.8-2.4) 11/30/19 06:15 Total Bilirubin 0.5 mg/dL (0.2-1.0) 11/30/19 06:15 AST 10 U/L (15-37) L 11/30/19 06:15 ALT 19 U/L (16-63) 11/30/19 06:15 Alkaline Phosphatase 75 U/L (46-116) 11/30/19 06:15 C-Reactive Protein 19.04 mg/dL (0.0-0.3) H 11/30/19 06:15 Total Protein 7.1 g/dL (6.4-8.2) 11/30/19 06:15 Albumin 3.0 g/dL (3.4-5.0) L 11/30/19 06:15 Procalcitonin 0.1 ng/mL 12/01/19 06:10 Urine Color Yellow (Yellow) 11/30/19 05:00 Urine Clarity Clear (Clear) 11/30/19 05:00 Urine pH 5.5 (5-8) 11/30/19 05:00 Ur Specific [place] 1.025 (1.005-1.025) 11/30/19 05:00 Urine Protein Negative mg/dL (Negative) 11/30/19 05:00 Urine Ketones Negative mg/dL (Negative) 11/30/19 05:00 Urine Blood Negative (Negative) 11/30/19 05:00 Urine Nitrite Negative (Negative) 11/30/19 05:00 Urine Bilirubin Negative (Negative) 11/30/19 05:00 Urine Urobilinogen 0.2 EU/dL (Up TO 0.2) 11/30/19 05:00 Ur Leukocyte Esterase Negative (Negative) 11/30/19 05:00 Urine Glucose 500 mg/dL (Negative) H 11/30/19 05:00 Vancomycin Trough Cancelled 12/01/19 15:00 COVID-19 PCR Negative (Negative) 11/29/19 23:15 Nasopharyn COVID-19 PCR Not Applicable 11/29/19 23:15 Ref Test Perform Site [facility] lab 11/29/19 23:15
--- NOTE | 2019-12-02 12:59 | PDOC.CMPRO ---
- If Service Date Differs Date of service: 12/02/19 Time of Service: 12:59 Care Management Progress Note S/O:Satnam remains acute today, changed the dressing and will see him in the office on . Plan will be for Satnam to be discharged to his place of residence on Sunday, he reports his Mom will transport him. He states he struggles with his blood sugars, he is willing to be referred to [place] [facility] which CM has done. Satnam will be on oral antibiotics at time of discharge. A: 49 year old male admitted to [facility] 11/29/19 for Cellulitis w/abcess RT Foot, neuropathy with NIKKM, PVD P: Satnam will be discharged home to the [facility] on 12/03/2019. will see him in the office 12/04/2019. No home health at this time, will manage the dressing changes. Referral to [facility] for DM management. Mom to transport him home at time of discharge.
[2019-12-02 13:47] LABS: C-Reactive Protein 8.27 mg/dL (0.0-0.3)
[2019-12-02] MEDS: Acetaminophen 325 MG TAB PO (14:27)
[2019-12-02 14:42] LABS: ESR 60 mm/hr (0-15)
[2019-12-02 15:22] VITALS: BP 131/81; PULSE 74; RESP 19; TEMP 37.2; O2SAT 98
[2019-12-02] MEDS: metFORMIN 500 MG TAB PO (17:44)
[2019-12-02 19:27] VITALS: BP 157/87; PULSE 80; RESP 19; TEMP 37.2; O2SAT 98
[2019-12-02] MEDS: Insulin Glargine 300 UNITS/3 ML PEN 8 UNITS SC (21:46)
[2019-12-02 23:27] VITALS: BP 138/92; PULSE 83; RESP 20; TEMP 37; O2SAT 96
[2019-12-03 03:49] VITALS: BP 153/86; PULSE 84; RESP 18; TEMP 36.6; O2SAT 95
[2019-12-03 07:09] LABS: Abs Immature Grans 0.04 k/cumm (0.0-0.09); Absolute Basophil Count 0.01 k/cumm (0.0-0.2); Absolute Eosinophil Count 0.12 k/cumm (0.0-0.7); Absolute Lymphocyte Count 1.38 k/cumm (1.2-3.4); Absolute Monocyte Count 0.37 k/cumm (0.11-0.7); Absolute Neutrophil Count 4.06 k/cumm (1.2-6.7); Basophils % 0.2; HCT 39.8 % (40.0-50.0); HGB 13.6 g/dL (13.5-17.5); Immature Grans % 0.7 %; Lymphocytes % 23.1; Mean Corp. HGB Concentration 34.2 g/dL (32.0-36.0); Mean Corpuscular Hemoglobin 28.9 pg (27.0-33.0); Mean Corpuscular Volume 84.5 fL (80-95); Mean Platelet Volume 9.1 fL (8.0-11.0); Monocytes % 6.2; Neutrophils % 67.8; Platelet Count 191 x1000/uL (130-400); RBC 4.71 m/cumm (4.50-6.00); RBC Distribution Width 13.9 % (11.8-14.1); White Blood Cell Count 5.98 k/cumm (4.4-10.8)
[2019-12-03 07:13] LABS: Anion Gap 7.4 mmol/L (3-11); BUN 7 mg/dL (7-18); C-Reactive Protein 4.65 mg/dL (0.0-0.3); CO2 27.6 mmol/L (21.0-32.0); CREATININE 0.81 mg/dL (0.70-1.30); Calcium 8.5 mg/dL (8.5-10.1); Chloride 104 mmol/L (98-107); Glucose 152 mg/dL (74-106); Potassium 3.4 mmol/L (3.5-5.1); Sodium 139 mmol/L (136-145)
[2019-12-03 07:51] VITALS: BP 155/84; PULSE 85; RESP 20; TEMP 36.3; O2SAT 96
[2019-12-03] MEDS: Budesonide/Formoterol 160/4.5 6 GM 60 PUFF INH IH (08:10)
[2019-12-03 08:17] LABS: ESR 55 mm/hr (0-15)
[2019-12-03] MEDS: guaiFENesin 600 MG TABCR PO (08:17)
[2019-12-03] MEDS: Insulin Aspart 300 UNITS/3 ML PEN SC (08:17)
[2019-12-03] MEDS: Amoxicillin 875/Clav. 125 TAB PO (08:17)
[2019-12-03] MEDS: metFORMIN 500 MG TAB PO (08:17)
[2019-12-03] MEDS: Omeprazole 20 MG CAPCR PO (08:17)
--- NOTE | 2019-12-03 09:37 | W.PM.DS.N ---
Date of service: 12/03/19 Time of Service: 09:37 DS: Diagnosis Discharge Diagnosis (1) Cellulitis and abscess of foot: Status: Acute Asessment and Plan: s/p amputation 2nd toe right foot. will need 14 days of augmentin for cellulitis with wound culture positive group b strep. pain managed with oral. dressing changes per Dr Roche. outpatient appointment for 12/04/19 CRP trending down 8.27 to 4.65 today ESR from 60 to 55 normal white count (2) Non-insulin dependent type 2 diabetes mellitus: Status: Chronic Asessment and Plan: request for pcp to priorauthorize [facility]. A1C 9.7 Metformin increased to 1000 mg po daily, increase to 1500 mg daily in one week and 2000 mg daily in 2 weeks if tolerated. outpatient diabetes management (3) COPD (chronic obstructive pulmonary disease): Status: Chronic Asessment and Plan: stable, continue home medications (4) GERD (gastroesophageal reflux disease): Status: Chronic Asessment and Plan: stable, continue omeprazole (5) Tobacco abuse: Status: Acute Asessment and Plan: smoking cessation discussed, patient is motivated to stop smoking. reports he has nicotine patches at home. Discharge Plan Disposition Patient Disposition: HOME Condition: Stable Discharge Details Chief Complaint: Vascular Clinical Impression: Diabetic foot ulcer, Cellulitis in diabetic foot Reason For Visit: CELLULITIS W/ABCESS RT FOOT,NEUROPATHY W/NIDDM,PVD Admit Date/Time: 11/29/19 23:07 Admit Provider: Pete Gamboa Attending Provider: Pete Gamboa Primary Care Provider: Chely Olivera ED Provider: Ashley Peña Hospital Course Hospital Course: This is a 49-year-old male with a long history of poorly controlled diabetes, hemoglobin A1C 9.7, who had multiple surgeries to his left leg after a complicated fracture with deformities of his left lower extremity and chronic numbness over his feet from his diabetes. He presented to the ED for evaluation and x-ray did reveal probable osteomyelitis of the distal phalanx of the second right toe with soft tissue swelling associated with cellulitis. His blood cultures remain negative but wound cultures did grow group B strep. Dr. rivera was consulted and he was taken to the OR for amputation of his second toe. Postoperative course was uncomplicated. He will complete 2 weeks of Augmentin based on sensitivities. His pain has been managed, hemodynamically stable with no fevers. He is eating and drinking bowels and bladder functioning. He does report chronic loose stools which he attributes to his metformin but metformin was increased to thousand milligrams daily which he is tolerating so far. He was advised in 1 week to increase it to 1500 mg daily and then after 1 week to increase it to 2000 mg daily if tolerated. We did also call his primary care provider's office for prior authorization for [facility]. This is still pending. He states he will follow-up with outpatient diabetes management. He was also counseled on tobacco cessation which he reports he is motivated to continue. Resources were offered and he states he does have nicotine patches at home and declines any further resources at this time. He was advised to keep his wound dressing clean and dry until his follow-up appointment with Dr. Roche tomorrow. He is being discharged to home with no services. He will follow-up outpatient with his primary care provider on diabetes management and podiatry for wound management Discharge plan was discussed with Dr. Osborn who is in agreement Home Meds and New Rx's Prescriptions: New acetaminophen [Tylenol] 325 mg Tablet 650 mg PO Q4H PRN PRNQty: 0 RF: 0 nicotine 21 mg/24 hr Patch 24 Hour 21 mg transdermal DAILY PRN PRNQty: 0 RF: 0 ibuprofen [IBU] 600 mg Tablet 600 mg PO Q6H PRN PRNQty: 0 RF: 0 amoxicillin-pot clavulanate 875-125 mg Tablet 1 tab PO BID Qty: 25 RF: 0 Continued albuterol sulfate 90 mcg/actuation Hfa Aerosol Inhaler 2 puff INHALATION Q6H PRNRF: 0 budesonide-formoterol [Symbicort] 160-4.5 mcg/actuation Hfa Aerosol Inhaler 2 puff inhalation BID Qty: 1 RF: 2 Changed metformin 500 mg Tablet Extended Release 24 Hr 1,000 mg PO DAILY Qty: 0 RF: 0 Discharge Instructions Instructions: Cellulitis (DC), Diabetes and Nutrition (DC), Toe Amputation (DC) Additional Instructions: keep your wound clean and dry. Dr Roche will change your dressing at your follow up appointment. limit ambulation and time spent on your right foot. you will need outpatient diabetes education and further follow up as your hemoglobin A1C is high at 9.7. your medications have been adjusted and we have requested [facility] prior auth from your primary care provider. please follow up on this. stop smoking. use your nicotine patches as directed. notify pcp if further resources needed. Stand Alone Forms: Nursing Discharge Form Referrals: Romeo Oneal [ [facility] STAFF PHYSICIAN] - 12/10/19 11:30 am Jordin Roche DPM [[place] [facility] STAFF PHYSICIAN] - 12/04/19 8:15 am Activity:: limit use of right foot Equipment/Supplies:: No Equipment Needed Diet:: Carb Counting Discharge Orders Discharge Orders: Discharge Order (Routine); Ordered 12/03/19 Ordered By: Erin Guerra DS: Summary Status at Discharge Functional status at discharge: independent ambulation Overall status at discharge: patient is progressing back to baseline Mental Status: mental status grossly normal Speech and Movement: speech and movement normal Mood: congruent mood Affect: normal affect Exam Const General: cooperative, comfortable and no acute distress Nutritional Appearance: overweight Orientation: alert, awake and oriented x3 HENMT Head: normal to inspection, normocephalic and atraumatic Resp Effort & Inspection: normal respiratory effort Auscultation: clear to auscultation bilaterally Cardio Rate: regular rate Rhythm: regular rhythm GI Inspection: normal to inspection Palpation: soft Auscultation: normal bowel sounds Skin General skin exam: no rashes or lesions noted Neuro General: patient alert, patient awake and patient oriented x3 Cranial Nerves: CN's II-XI intact bilaterally Extrem General: full ROM and no pedal edema Right lower extremity: no joint enlargement and foot (dressing intact no drainage noted, no erythema proximal, post op shoe) Psych Mental Status: mental status grossly normal Speech and Movement: speech and movement normal Mood: congruent mood Affect: normal affect DS: Data Vitals/I&O Vitals and I&O: Vital Signs Temperature 36.3 C L 12/03/19 07:51 Temperature Source Tympanic 12/03/19 07:51 Pulse 85 12/03/19 07:51 Pulse Rhythm Regular 12/03/19 09:07 Respiratory Rate 20 12/03/19 07:51 Respiratory Effort Non-Labored 12/03/19 09:07 Respiratory Depth Normal 12/03/19 09:07 Respiratory Pattern Normal 12/03/19 09:07 Blood Pressure 155/84 H 12/03/19 07:51 Pulse Oximetry 96 12/03/19 07:51 Oxygen Delivery Method Room Air 12/03/19 07:51 Oxygen Flow Rate 0 12/03/19 07:51 Pain Level 0 12/03/19 07:51 Comment 11/30/19 05:39 Intake & Output 12/02/19 12/02/19 12/03/19 11:59 23:59 11:59 Intake Total 1360 / 4822.50 3462.50 / 4822.50 480 / 480 Output Total 675 / 1850 1175 / 1850 1050 / 1050 Balance 685 / 2972.50 2287.50 / 2972.50 -570 / -570 Weight 108.2 kg 108.2 kg Intake: IV 1110 / 3122.50 2012.50 / 3122.50 Oral 250 / 1700 1450 / 1700 480 / 480 Output: Urine 675 / 1850 1175 / 1850 1050 / 1050 Other: Urine Color Straw Yellow Yellow Urine Appearance Clear Clear Clear Urine Odor None None Normal Stool Size Moderate Stool Characteristics Soft Voiding Methods Urinal Urinal Urinal Data Completed and Pending Labs on day of discharge: Labs from last 24 hours 12/03/19 12/03/19 12/02/19 06:09 06:09 13:00 WBC 5.98 RBC 4.71 Hgb 13.6 Hct 39.8 L MCV 84.5 MCH 28.9 MCHC 34.2 RDW 13.9 Plt Count 191 MPV 9.1 Immature Gran % 0.7 Neutrophils % 67.8 Lymphocytes % 23.1 Monocytes % 6.2 Eosinophils % 2.0 Basophils % 0.2 Absolute Neutrophils 4.06 Absolute Lymphocytes 1.38 Absolute Monocytes 0.37 Absolute Eosinophils 0.12 Absolute Basophils 0.01 ESR 55 H Cancelled Sodium 139 Potassium 3.4 L Chloride 104 Carbon Dioxide 27.6 Anion Gap 7.4 BUN 7 Creatinine 0.81 Estimated GFR/1.73 m2 >= 60.00 Glucose 152 H Calcium 8.5 C-Reactive Protein 4.65 H 12/02/19 12/02/19 12/02/19 13:00 06:26 06:26 WBC 5.40 RBC 4.37 L Hgb 12.8 L Hct 37.8 L MCV 86.5 MCH 29.3 MCHC 33.9 RDW 14.0 Plt Count 180 MPV 9.5 Immature Gran % 0.2 Neutrophils % 64.2 Lymphocytes % 25.9 Monocytes % 7.6 Eosinophils % 1.9 Basophils % 0.2 Absolute Neutrophils 3.47 Absolute Lymphocytes 1.40 Absolute Monocytes 0.41 Absolute Eosinophils 0.10 Absolute Basophils 0.01 ESR 60 H Sodium 138 Potassium 3.6 Chloride 105 Carbon Dioxide 26.6 Anion Gap 6.4 BUN 10 D Creatinine 0.71 Estimated GFR/1.73 m2 >= 60.00 Glucose 157 H Calcium 8.0 L C-Reactive Protein Cancelled 8.27 H Preliminary micro results at discharge 11/29/19 22:05 Blood Culture - Preliminary Blood NO GROWTH 72 HOURS 11/29/19 22:00 Blood Culture - Preliminary Blood NO GROWTH 72 HOURS 11/30/19 17:50 Wound Culture - Preliminary Foot - Right Streptococcus Agalactiae(Gp B) Normal Lily [facility] Medical History (Updated 12/02/19 @ 12:51 by Erin Guerra NP) Acute exacerbation of chronic obstructive pulmonary disease (COPD) (Inactive) CAP (community acquired pneumonia) (Inactive) COPD (chronic obstructive pulmonary disease) (Chronic) DJD (degenerative joint disease) (Chronic) GERD (gastroesophageal reflux disease) (Chronic) Hyperlipidemia (Acute) Hypertension (Chronic) Non-insulin dependent type 2 diabetes mellitus (Chronic) Peripheral neuropathy (Acute) PVD (peripheral vascular disease) (Chronic) Syncope and collapse (Inactive) Tobacco abuse (Acute) Ventral hernia (Inactive) Surgical History (Updated 12/02/19 @ 12:51 by Erin Guerra NP) H/O left knee surgery (Acute) 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 (Acute) History of open reduction and internal fixation (ORIF) procedure (Acute) LLE S/P hardware removal (Acute) LLE S/P hernia repair (Acute) x2 at [facility]- 20 years ago Family History Mother Diabetes Hypertension Father Diabetes Hypertension Cancer lung Paternal Grandmother Diabetes Other Heart disease Social History Smoking/Tobacco Use Status: Current every day Tobacco Type: cigarettes Smoking packs per day: 1.5 Smoking cigarettes per day: 30.0 Years smoked: 20 Smoking pack-years: 30.00 Alcohol Intake: never Drug use: Never Substance use type: does not use Do you feel safe at home: Yes Do you feel safe in your relationship?: Yes
== END 2019-12-03 10:25 | disposition home or self-care (01) | DRG 464 ==
LOC: ER 23:34 → MS 11-30 00:31
PROVIDERS: Nurse Practitioner Family; Podiatrist; Admitting Provider Family Medicine; Emergency Provider Registered Nurse Emergency; PCP Nurse Practitioner Family; Visit Provider Internal Medicine
PROC: 0Y6R0Z1 Detachment at Right 2nd Toe, High, Open Approach (ICD-10-PCS; CPT 28825; principal; 2019-12-01 12:00)
DX: M86.171 Other acute osteomyelitis, right ankle and foot (principal); L03.115 Cellulitis of right lower limb; E11.52 Type 2 diabetes mellitus with diabetic peripheral angiopathy with gangrene; I96 Gangrene, not elsewhere classified; L02.611 Cutaneous abscess of right foot; E11.621 Type 2 diabetes mellitus with foot ulcer; E11.42 Type 2 diabetes mellitus with diabetic polyneuropathy; E11.65 Type 2 diabetes mellitus with hyperglycemia; E11.610 Type 2 diabetes mellitus with diabetic neuropathic arthropathy; L97.514 Non-pressure chronic ulcer of other part of right foot with necrosis of bone; Z79.84 Long term (current) use of oral hypoglycemic drugs; B95.1 Streptococcus, group B, as the cause of diseases classified elsewhere; J44.9 Chronic obstructive pulmonary disease, unspecified; F17.210 Nicotine dependence, cigarettes, uncomplicated; K21.9 Gastro-esophageal reflux disease without esophagitis; I10 Essential (primary) hypertension; E78.5 Hyperlipidemia, unspecified; Z71.3 Dietary counseling and surveillance
CPT/HCPCS: 28825; 28124; 36415; 36416; 80048; 80053; 82962; 84145; 85027; 85652; 87040; 87077; 88300; 88305; 94640; 96365; 96375; 99223; 99233; 99239; 99285; U0003; 73630; 73720; 80202; 81003; 83036; 83605; 83735; 85025; 86140; 87070; 87186; 87205; 88311; J0696; J1644; J2540; J2543; J3010; J3370; J3490

== ENCOUNTER 2020-01-05 00:11 | Outpatient (CLI) | payer OTHER, MEDICAID, SELFPAY ==
--- NOTE | 2020-01-05 09:14 | DI.RAD_ITS ---
EXAM: XR LUMBAR SPINE AP, LAT CLINICAL HISTORY: BACK PAIN, DISABILITY DETERMINATION. TECHNIQUE: 2D digital imaging was performed. COMPARISON: CR XR CHEST 2V PA LATERAL from 07/10/2019 CR,XR XR PORTABLE CHEST AP from 07/12/2019 FINDINGS: BONES: No fracture or destructive lesion. Vertebral bodies show endplate osteophytes. There is parti al sacralization of L5. Moderate facet hypertrophy identified at 3 4 and L4-5, greater on the right side. DISKS: Intervertebral disc spaces are maintained. ALIGNMENT: There is a mild levoscoliosis. No spondylolysis or spondylolisthesis is seen.. SOFT TISSUE: Calcification is seen in lower abdominal aorta and proximal iliac arteries. IMPRESSION: Degenerative changes, greatest of the right-sided facet joints at L 3 4 and L4-5. DATA REPOSITORY: RADIATION DOSE DELIVERED:
== END 2020-01-05 00:31 ==
PROVIDERS: PCP Nurse Practitioner Family; Visit Provider Pediatrics Pediatric Rheumatology
DX: M54.5 Low back pain (principal); Z02.71 Encounter for disability determination; M47.816 Spondylosis without myelopathy or radiculopathy, lumbar region
CPT/HCPCS: 72100

== ENCOUNTER 2020-05-24 18:13 | Outpatient (CLI) | payer MEDICAID, SELFPAY ==
--- NOTE | 2020-05-24 16:49 | DI.RAD_ITS ---
EXAM: XR FOOT RT COMPLETE CLINICAL HISTORY: CELLUTIS RT FOOT L03.115, CAT BITE W55.01XA, DIABETIC FOOT ULCER E11.621. TECHNIQUE: 2D digital imaging was performed. COMPARISON: CR,XR XR FOOT RT COMPLETE from 11/29/2019 MR MR LOWER EXTREMITY RT WO/W from 12/01/2019 FINDINGS: The patient is status post amputation at the level of the distal aspect of the proximal phalanx of th e 2nd toe since previous exam. The toes are suboptimally profiled significant overlap. No foreign b tete is seen. There is soft tissue swelling distally of the 3rd toe. No definite bony erosion is see n. IMPRESSION: Partial amputation of the 2nd toe. Soft tissue swelling around the distal phalanx of the 3rd toe wit hout definite evidence of osteomyelitis. DATA REPOSITORY: RADIATION DOSE DELIVERED:
--- NOTE | 2020-05-24 17:04 | DI.VRAD_ITS ---
PROCEDURE INFORMATION: Exam: XR Right Foot Complete Exam date and time: 05/24/2020 3:57 PM Age: 49 years old Clinical indication: Injury or trauma; Other: Cat bite; Wound; Foot; Right; Foreign body involvement not specified TECHNIQUE: Imaging protocol: XR Right foot. Views: 3 or more views. COMPARISON: CR XR FOOT RT COMPLETE 29/11/2019 22:18 FINDINGS: Bones/joints: Amputation of the 2nd distal and middle phalanx new compared with prior study October 2019. New cortical irregularity of the distal aspect of the 2nd proximal phalanx compared with prior study. Increased bone ossification involving the 5th toe compared with prior study. Soft tissues: Soft tissue swelling involving the 2nd and 3rd toe. IMPRESSION: 1. Postsurgical changes of the right 2nd toe with soft tissue swelling and new periosteal changes suggesting possible osteomyelitis. 2. Additional findings involving the 3rd and 5th toe as discussed above. Dictated and Authenticated by: Oksana Pruitt MD. Ordering:LAKISHA Marcus MD
== END 2020-05-24 18:33 ==
PROVIDERS: PCP Nurse Practitioner Family; Visit Provider Nurse Practitioner Community Health
DX: M79.89 Other specified soft tissue disorders (principal); Z89.421 Acquired absence of other right toe(s)
CPT/HCPCS: 85652; 73630; 85025

== ENCOUNTER 2020-05-24 22:15 | Outpatient (REF) | payer MEDICAID, SELFPAY ==
[2020-05-24 22:24] LABS: Abs Immature Grans 0.05 10^3/uL (0.0-0.06); Absolute Basophil Count 0.03 10^3/uL (0.0-0.2); Absolute Eosinophil Count 0.06 10^3/uL (0.0-0.7); Absolute Lymphocyte Count 2.04 10^3/uL (1.2-3.4); Absolute Monocyte Count 0.48 10^3/uL (0.1-0.8); Absolute Neutrophil Count 6.17 10^3/uL (1.2-6.7); Basophils % 0.3; Eosinophils % 0.7; HCT 46.5 % (40.0-50.0); HGB 15.7 g/dL (13.5-17.5); Immature Grans % 0.6; Lymphocytes % 23.1; MCH 30.1 pg (27.0-33.0); MCHC 33.8 % (32.0-36.0); MCV 89.1 fL (80-95); MPV 9.7 fL (8.0-11.0); Monocytes % 5.4; Neutrophils % 69.9; Nucleated RBC 0 %; Platelet Count 230 10^3/uL (130-400); RBC 5.22 10^6/uL (4.36-5.78); RDW 13.5 % (11.8-14.1); RDW-SD 44.1 fL; WBC 8.83 10^3/uL (4.4-10.8)
[2020-05-24 22:48] LABS: ESR 15 mm/hr (0-15)
[2020-05-31 16:10] LABS: CRP, High Sensitivity 13.3 mg/L (<2.0)
== END 2020-05-24 22:35 ==
LOC: NCHCN 22:15
PROVIDERS: PCP Nurse Practitioner Family; Visit Provider Nurse Practitioner Community Health
DX: E11.621 Type 2 diabetes mellitus with foot ulcer (principal); L03.115 Cellulitis of right lower limb
CPT/HCPCS: 85652; 86141; 85025

== ENCOUNTER 2020-06-04 09:02 | Day surgery (SDC) | payer MEDICAID, SELFPAY ==
[2020-06-04 09:16] VITALS: BP 140/95; PULSE 103; RESP 20; TEMP 36.2; O2SAT 97
[2020-06-04] MEDS: Lactated Ringers 1,000 ML 80 ML IV (09:51)
[2020-06-04] MEDS: ceFAZolin 1 GM/50 ML BAG IVPB ×2 (13:00→13:06)
[2020-06-04] MEDS: Bupivacaine 0.5% Pres-Free 30 ML VIAL (13:06)
--- NOTE | 2020-06-04 13:16 | AMP_PTH ---
PATIENT: Satnam Swan LOC: [facility] U#:[id number] AGE/SX: 49/M ROOM: RE06/04/[address]: Jordin Roche : 1970 BED: DIS: 06/04/2020 SPEC #: [id number] RECD: 06/04/20 18:41 STATUS: [place] REQ #: [id number] DARLENE: 06/04/20 13:[address]: Jordin Roche DEPT: Surgical Specimen RECD BY: Aislinn Cuevas ENTERED: 06/04/20 18:42 SP TYPE: Amputation OTHR DR: Chely Olivera Tissues: 1 - AMPUTATION FINGERS/TOES(NOT TRAUMA) Procedures: GROSS AND MICRO LEVEL 4 DECALCIFICATION Comments: [id number]
--- NOTE | 2020-06-04 13:30 | W.PM.DSUDISC ---
Discharge Plan Disposition Patient Disposition: HOME Condition: Good Discharge Details Reason For Visit: debridement right 3rd toe Attending Provider: Jordin Roche Primary Care Provider: Chely Olivera Home Meds and New Rx's Prescriptions: New hydrocodone-acetaminophen [[place]] 5-325 mg tablet 1 tab PO Q6H PRN (Reason: pain) Qty: 9 RF: 0 Continued albuterol sulfate 90 mcg/actuation Hfa Aerosol Inhaler 2 puff INHALATION Q6H PRNRF: 0 budesonide-formoterol [Symbicort] 160-4.5 mcg/actuation Hfa Aerosol Inhaler 2 puff inhalation BID Qty: 1 RF: 2 acetaminophen [Tylenol] 325 mg Tablet 650 mg PO Q4H PRN PRNQty: 0 RF: 0 nicotine 21 mg/24 hr Patch 24 Hour 21 mg transdermal DAILY PRN PRNQty: 0 RF: 0 ibuprofen [IBU] 600 mg Tablet 600 mg PO Q6H PRN PRNQty: 0 RF: 0 amoxicillin-pot clavulanate 875-125 mg Tablet 1 tab PO BID Qty: 25 RF: 0 metformin 500 mg Tablet Extended Release 24 Hr 1,000 mg PO DAILY Qty: 60 RF: 0 Discharge Instructions Activity:: Elevate Remove Dressings/Wound Care:: Do Not Remove Shower/Bathe:: Cover Diet:: Carb Counting Discharge Orders Discharge Orders: Discharge Order (Routine); Ordered 06/04/20 Ordered By: Jordin Roche DS: Diagnosis Discharge Diagnosis (1) Hammertoe of right foot: Status: Acute (2) Ulcer of toe due to diabetes: Status: Acute
--- NOTE | 2020-06-04 13:33 | W.PM.OP ---
Date of service: 06/04/20 Time of Service: 13:33 Operative Note Operative Note DATE OF PROCEDURE: 06/04/20 PRE-OP DIAGNOSIS: hammertoe with ulcer right 3rd toe POST-OP DIAGNOSIS: same PROCEDURE: debridement right 3rd toe with tissue loss to the pipj SURGEON: Jordin Roche ANESTHESIA: local ESTIMATED BLOOD LOSS: 1 PATHOLOGY: other COMPLICATIONS: None Patient was transported to: same day Patient's condition: stable Indications: rigidly contracted right 3rd toe with ulceration to bone Procedure Description: Satnam was brought to the operative suite placed in the supine position with the right foot prepped and draped in the usual sterile podiatric fashion. Timeout was performed per protocol. The right third toe was anesthetized with 5 cc of a 50: 50 mixture, 1% lidocaine with epinephrine, 0.5% Marcaine plain. Attention was directed to the right third toe where dorsal and plantar flaps were created so as to afford a debridement of tissue coming to the proximal interphalangeal joint. Raised there was no sign of sepsis at the level of proximal flap creation. The joint capsule was incised plantarly and medially laterally and dorsally in the distal aspect of the toe removed from the wound at the PIPJ level. Was copiously irrigated. Plantar and flexor tendons were repaired end-to-end with 3-0 Vicryl the skin edges were then brought together with the near far far near suture technique of 3-0 nylon. Skin edges were further coapted with simple interrupted suture 4-0 nylon. Xeroform gauze fluff compression dressings were applied. Attention was now directed to the back table where the tip of the removed third toe was incised and deep soft tissue bone cultures were removed and sent to microbiology for aerobic and anaerobic studies. The remaining portion of the toe was sent to pathology. Satnam left the OR with vital signs stable vascular status intact sharp and sponge counts were correct. He will be followed by myself in the office next week.
== END 2020-06-04 14:12 | disposition home or self-care (01) ==
PROVIDERS: PCP Nurse Practitioner Family; Visit Provider Podiatrist
PROC: (CPT 28825; principal; 2020-06-04 11:45)
DX: M20.41 Other hammer toe(s) (acquired), right foot (principal); M86.671 Other chronic osteomyelitis, right ankle and foot; B95.61 Methicillin susceptible Staphylococcus aureus infection as the cause of diseases classified elsewhere; B95.2 Enterococcus as the cause of diseases classified elsewhere
CPT/HCPCS: 28825; 87077; 88300; 88305; 87070; 87075; 87186; 87205; 88311; J0690

== ENCOUNTER 2020-06-10 10:23 | Outpatient (REF) | payer MEDICAID, SELFPAY ==
[2020-06-10 21:35] LABS: ALT 41 U/L (16-63); AST 18 U/L (15-37); Albumin 4.3 g/dL (3.4-5.0); Alkaline Phosphatase 74 U/L (46-116); Anion Gap 11.6 mmol/L (3-11); BUN 20 mg/dL (7-18); Bilirubin, Total 0.6 mg/dL (0.2-1.0); CO2 26.4 mmol/L (21.0-32.0); CREATININE 1.04 mg/dL (0.70-1.30); Calcium 9.2 mg/dL (8.5-10.1); Calculated LDL 141 mg/dL (<100); Chloride 101 mmol/L (98-107); Cholesterol 216 mg/dL (<200); Glucose 151 mg/dL (74-106); HDL Cholesterol 33 mg/dL (40-60); Potassium 4.3 mmol/L (3.5-5.1); Sodium 139 mmol/L (136-145); Total Protein 8.2 g/dL (6.4-8.2); Triglyceride 211 mg/dL (<150)
== END 2020-06-10 10:43 ==
LOC: NCHCN 10:23
PROVIDERS: PCP Nurse Practitioner Family; Visit Provider Nurse Practitioner Family
DX: E11.9 Type 2 diabetes mellitus without complications (principal); Z00.00 Encounter for general adult medical examination without abnormal findings; I10 Essential (primary) hypertension
CPT/HCPCS: 80053; 80061

== ENCOUNTER 2020-07-12 16:04 | Outpatient (REF) | payer MEDICAID, SELFPAY ==
[2020-07-12 21:12] LABS: Abs Immature Grans 0.02 10^3/uL (0.0-0.06); Absolute Basophil Count 0.03 10^3/uL (0.0-0.2); Absolute Eosinophil Count 0.06 10^3/uL (0.0-0.7); Absolute Lymphocyte Count 1.82 10^3/uL (1.2-3.4); Absolute Monocyte Count 0.37 10^3/uL (0.1-0.8); Absolute Neutrophil Count 4.83 10^3/uL (1.2-6.7); Basophils % 0.4; Eosinophils % 0.8; HCT 48.2 % (40.0-50.0); HGB 16.6 g/dL (13.5-17.5); Immature Grans % 0.3; Lymphocytes % 25.5; MCHC 34.4 % (32.0-36.0); MCV 87.2 fL (80-95); MPV 9.5 fL (8.0-11.0); Monocytes % 5.2; Neutrophils % 67.8; Nucleated RBC 0 %; Platelet Count 187 10^3/uL (130-400); RBC 5.53 10^6/uL (4.36-5.78); RDW 13.9 % (11.8-14.1); RDW-SD 44.5 fL; WBC 7.13 10^3/uL (4.4-10.8)
[2020-07-12 21:48] LABS: ALT 54 U/L (16-63); AST 22 U/L (15-37); Albumin 4.3 g/dL (3.4-5.0); Alkaline Phosphatase 65 U/L (46-116); Anion Gap 8.3 mmol/L (3-11); BUN 15 mg/dL (7-18); Bilirubin, Total 0.7 mg/dL (0.2-1.0); CO2 27.7 mmol/L (21.0-32.0); CREATININE 0.94 mg/dL (0.70-1.30); Calcium 8.7 mg/dL (8.5-10.1); Calculated LDL 100 mg/dL (<100); Chloride 101 mmol/L (98-107); Cholesterol 159 mg/dL (<200); Folate 16.3 ng/mL (8.6-20.0); Glucose 167 mg/dL (74-106); HDL Cholesterol 30 mg/dL (40-60); Potassium 3.9 mmol/L (3.5-5.1); Sodium 137 mmol/L (136-145); TSH (W/Ref FT4) 1.68 uIU/mL (0.36-3.74); Total Protein 8.1 g/dL (6.4-8.2); Triglyceride 146 mg/dL (<150); Vitamin B12 448 pg/mL (193-986)
== END 2020-07-12 16:24 ==
LOC: NCHCN 16:04
PROVIDERS: PCP Nurse Practitioner Family; Visit Provider Nurse Practitioner Family
DX: E78.5 Hyperlipidemia, unspecified (principal); E11.40 Type 2 diabetes mellitus with diabetic neuropathy, unspecified
CPT/HCPCS: 80053; 80061; 82043; 82570; 82607; 82746; 84443; 85025

== ENCOUNTER 2020-08-30 18:11 | Outpatient (REF) | payer MEDICAID, SELFPAY | END 2020-08-30 18:12 | disposition home or self-care (01) | LOC: NCHCN 18:11 | PROVIDERS: PCP Nurse Practitioner Family; Visit Provider Nurse Practitioner Family | DX: E11.621 Type 2 diabetes mellitus with foot ulcer (principal); L97.519 Non-pressure chronic ulcer of other part of right foot with unspecified severity | CPT/HCPCS: 87077; 87070; 87205 ==

== ENCOUNTER 2020-09-03 08:01 | Day surgery (SDC) | payer MEDICAID, SELFPAY ==
[2020-09-03 08:26] VITALS: BP 121/70; PULSE 109; RESP 20; TEMP 36.7; O2SAT 93
[2020-09-03] MEDS: Lactated Ringers 1,000 ML 80 ML IV (08:50)
[2020-09-03] MEDS: ceFAZolin 1 GM/50 ML BAG IVPB (09:58)
[2020-09-03] MEDS: Bupivacaine 0.5% Pres-Free 30 ML VIAL (10:33)
--- NOTE | 2020-09-03 10:45 | AMP_PTH ---
PATIENT: Satnam Swan LOC: [facility] U#:[id number] AGE/SX: 49/M ROOM: RE09/03/[address]: Jordin Roche : 1970 BED: DIS: 09/03/2020 SPEC #: [id number] RECD: 09/03/20 12:48 STATUS: DILLON REDustin #: [id number] DARLENE: 09/03/20 10:[address]: Jordin Roche DEPT: Surgical Specimen RECD BY: Aislinn Cuevas ENTERED: 09/03/20 12:49 SP TYPE: Amputation OTHR DR: Crissy Leavitt Tissues: 1 - AMPUTATION FINGERS/TOES(NOT TRAUMA) Procedures: GROSS AND MICRO LEVEL 4 DECALCIFICATION Comments: [id number]
--- NOTE | 2020-09-03 10:58 | PDOC.DSDIS_ITS ---
Discharge Plan Disposition Patient Disposition: HOME Condition: Good Discharge Details Reason For Visit: Amputation right third toe, tenotomy left second t Attending Provider: Jordin Roche Primary Care Provider: Crissy Leavitt Home Meds and New Rx's Prescriptions: Continued Trulicity 0.75 mg/0.5 mL pen injector 0.75 mg subcut QWEEK RF: 0 lisinopril 10 mg tablet 10 mg PO DAILY RF: 0 atorvastatin 10 mg tablet 10 mg PO QHS RF: 0 duloxetine 30 mg capsule,delayed release(DR/EC) 30 mg PO DAILY RF: 0 amitriptyline 100 mg tablet 100 mg PO DAILY RF: 0 budesonide-formoterol [Symbicort] 80-4.5 mcg/actuation HFA aerosol inhaler 2 puff inhalation BID RF: 0 albuterol sulfate [ProAir HFA] 90 mcg/actuation HFA aerosol inhaler 2 puff inhalation Q6H PRNRF: 0 aspirin 81 mg tablet,chewable 81 mg PO DAILY RF: 0 albuterol sulfate 90 mcg/actuation Hfa Aerosol Inhaler 2 puff INHALATION Q6H PRNRF: 0 budesonide-formoterol [Symbicort] 160-4.5 mcg/actuation Hfa Aerosol Inhaler 2 puff inhalation BID Qty: 1 RF: 2 hydrocodone-acetaminophen [[place]] 5-325 mg tablet 1 tab PO Q6H PRN (Reason: pain) Qty: 9 RF: 0 acetaminophen [Tylenol] 325 mg Tablet 650 mg PO Q4H PRN PRNQty: 0 RF: 0 nicotine 21 mg/24 hr Patch 24 Hour 21 mg transdermal DAILY PRN PRNQty: 0 RF: 0 ibuprofen [IBU] 600 mg Tablet 600 mg PO Q6H PRN PRNQty: 0 RF: 0 amoxicillin-pot clavulanate 875-125 mg Tablet 1 tab PO BID Qty: 25 RF: 0 metformin 500 mg Tablet Extended Release 24 Hr 1,000 mg PO DAILY Qty: 60 RF: 0 Discharge Instructions Activity:: Elevate Remove Dressings/Wound Care:: Do Not Remove Shower/Bathe:: Cover Diet:: Carb Counting Discharge Orders Discharge Orders: Discharge Order (Routine); Ordered 09/03/20 Ordered By: Jordin Roche DS: Diagnosis Discharge Diagnosis (1) Ulcer of toe due to diabetes: Status: Acute
--- NOTE | 2020-09-03 11:00 | W.PM.OP ---
Date of service: 09/03/20 Time of Service: 11:01 Operative Note Operative Note Satnam was brought to the operative suite placed in the supine position with both feet were prepped and draped in the usual podiatric fashion. Anesthesia was achieved utilizing 0.5% Marcaine and 1% lidocaine 1 100,000 epinephrine digital blocks to the right third toe and left second digit with 17 cc being infused between the 2 feet. Attention was directed to the left second toe where a stab incision was placed at the flexor facet level utilizing a #11 blade. The extensor tendon was released and the second toe assumed a rectus position. A stab incision was closed with a single suture of 4-0 nylon. Attention was directed to the right third toe with 2 converging semielliptical incisions were placed at the base of the toe so as to afford an amputation. The dorsal tissue was dissected lifting the distal flap, releasing the extensor tendons, dissecting down to the joint capsule and releasing the dorsal capsule. The incision was then carried down medially laterally plantarly, the plantar flap raised, the extensor tendons severed, the joint capsule released and the third toe was removed from the operative field exposing the third metatarsal head. Aerobic and anaerobic cultures were obtained at this level. No purulence was identified. The third metatarsal head appeared pearly white and healthy. Copious irrigation with normal saline was performed. The deep layer was repaired with simple interrupted suture 3-0 Vicryl. The skin was then closed with a combination of 3-0 and 4-0 nylon simple interrupted suture. Xeroform was applied to both incisions followed by fluffs followed by Kerlex, stockinette and Dejon wrap. Sharp and sponge counts were correct. Satnam left the OR with vital signs stable vascular status intact. He will be followed by myself in the office next week.
== END 2020-09-03 11:39 | disposition home or self-care (01) ==
PROVIDERS: PCP Nurse Practitioner Family; Visit Provider Podiatrist
PROC: (CPT 28820; principal; 2020-09-03 10:00)
PROC: (CPT 28820; 2020-09-03 10:00)
DX: E11.621 Type 2 diabetes mellitus with foot ulcer (principal); M86.171 Other acute osteomyelitis, right ankle and foot
CPT/HCPCS: 28820; 88300; 88305; 87070; 87075; 87205; 88311; J0690

== ENCOUNTER 2020-09-08 08:26 | Outpatient (REF) | payer MEDICAID, SELFPAY ==
[2020-09-08 13:32] LABS: ALT 66 U/L (16-63); AST 22 U/L (15-37); Albumin 4.1 g/dL (3.4-5.0); Alkaline Phosphatase 77 U/L (46-116); Anion Gap 9.8 mmol/L (3-11); BUN 22 mg/dL (7-18); Bilirubin, Total 0.5 mg/dL (0.2-1.0); CO2 27.2 mmol/L (21.0-32.0); Calculated LDL 70 mg/dL (<100); Chloride 101 mmol/L (98-107); Cholesterol 166 mg/dL (<200); Glucose 230 mg/dL (74-106); HDL Cholesterol 27 mg/dL (40-60); Potassium 4.3 mmol/L (3.5-5.1); Sodium 138 mmol/L (136-145); Total Protein 8.1 g/dL (6.4-8.2); Triglyceride 348 mg/dL (<150)
[2020-09-08 14:32] LABS: COMMENT (LAB VIEW ONLY) 207.64 mg/dL; Microalb ug/mg Crea 10.6 ug/mg Cr
== END 2020-09-08 08:27 | disposition home or self-care (01) ==
LOC: NCHCN 08:26
PROVIDERS: PCP Nurse Practitioner Family; Visit Provider Nurse Practitioner Family
DX: E11.9 Type 2 diabetes mellitus without complications (principal); E78.5 Hyperlipidemia, unspecified; I10 Essential (primary) hypertension
CPT/HCPCS: 80053; 80061; 82043; 82570; 83036

== ENCOUNTER 2020-10-18 10:51 | Outpatient (REF) | payer MEDICAID, SELFPAY | END 2020-10-18 10:52 | disposition home or self-care (01) | LOC: LBN 10:51 | PROVIDERS: PCP Nurse Practitioner Family; Visit Provider Podiatrist | DX: L02.612 Cutaneous abscess of left foot (principal) | CPT/HCPCS: 87077; 87070; 87186; 87205 ==

== ENCOUNTER 2020-11-10 02:40 | Outpatient (CLI) | payer MEDICAID, SELFPAY ==
[2020-11-10 11:35] LABS: Source Nasal/Nares
[2020-11-10 15:24] LABS: COVID-19 PCR Negative (Negative)
== END 2020-11-10 02:41 | disposition home or self-care (01) ==
LOC: LBO 02:40
PROVIDERS: PCP Nurse Practitioner Family; Visit Provider Surgery
DX: Z20.822 Contact with and (suspected) exposure to COVID-19 (principal); Z01.818 Encounter for other preprocedural examination
CPT/HCPCS: 87635

== ENCOUNTER 2020-11-12 11:00 | Day surgery (SDC) | payer MEDICAID, SELFPAY ==
[2020-11-12 11:17] VITALS: BP 124/87; PULSE 100; RESP 16; TEMP 36.7; O2SAT 94
[2020-11-12] MEDS: Lactated Ringers 1,000 ML 80 ML IV (11:36)
--- NOTE | 2020-11-12 12:08 | ANES.PREOP_ITS ---
General Info Date of Service Date Performed: 11/12/20 Height: 5 ft 11 in Weight: 109 kg Body Mass Index (BMI): 33.5 Surgical Procedure: Operation Date: 11/12/20 11:50 Proposed Procedures Side Surgeon allegra Zamorano, Meds Allergies and Home Medications Allergies Allergy/AdvReac Type Severity Reaction Status Date / Time No Known Allergies Allergy Verified 11/09/20 10:14 Home Medication Medication Instructions Recorded acetaminophen [Tylenol] 650 mg PO Q4H PRN PRN #0 tab 12/03/19 ibuprofen [IBU] 600 mg PO Q6H PRN PRN #0 tab 12/03/19 metformin 1,000 mg PO DAILY #60 tab 12/03/19 albuterol sulfate 90 mcg/actuation 2 puff INHALATION Q6H PRN 09/01/20 aerosol inhaler amitriptyline 100 mg tablet 100 mg PO DAILY 09/01/20 atorvastatin 10 mg tablet 10 mg PO QHS 09/01/20 budesonide-formoterol HFA 80 2 puff INHALATION BID 09/01/20 mcg-4.5 mcg/actuation aerosol inhaler dulaglutide 0.75 mg/0.5 mL 0.75 mg SUBCUT QWEEK 09/01/20 subcutaneous pen injector duloxetine 30 mg capsule,delayed 30 mg PO DAILY 09/01/20 release lisinopril 10 mg tablet 10 mg PO DAILY 09/01/20 Current Visit Medications: Current Medications Generic Name Dose Route Start Last Admin Trade Name Freq PRN Reason Stop Dose Admin Ringer's Solution 1,000 mls @ 80 mls/hr 11/12/20 06:00 11/12/20 11:36 IV 12/11/20 23:59 80 mls/hr INFUSION STANLEY Administration IV Miscellaneous Supplies 1 each 11/12/20 06:00 Iv Access IV 12/11/20 23:59 DIRECTED STANLEY Sodium Chloride 0 ml 11/12/20 06:00 Normal Saline Flush 10 Ml Syr IV 12/11/20 23:59 PRN PRN Sodium Chloride 0 ml 11/12/20 06:00 Normal Saline 10 Ml Vial IJ 12/11/20 23:59 DIRECTED PRN Sterile Water 0 ml 11/12/20 06:00 Water,Injection,Sterile 10 Ml Vial IJ 12/11/20 23:59 DIRECTED PRN PFSH Active Problems Active Problems: Problem Status Onset Code Ulcer of toe due to diabetes E11.621, L97.509 Hammertoe of right foot M20.41 COPD (chronic obstructive pulmonary disease) J44.9 Cellulitis and abscess of foot L03.119, L02.619 Discharge planning issues Z02.9 DVT prophylaxis Z29.9 GERD (gastroesophageal reflux disease) K21.9 Non-insulin dependent type 2 diabetes mellitus E11.9 Tobacco abuse Z72.0 Peripheral neuropathy G62.9 DJD (degenerative joint disease) M19.90 Hypertension I10 PVD (peripheral vascular disease) I73.9 Medical History Medical History Acute exacerbation of chronic obstructive pulmonary disease (COPD) CAP (community acquired pneumonia) COPD (chronic obstructive pulmonary disease) DJD (degenerative joint disease) GERD (gastroesophageal reflux disease) Hyperlipidemia Hypertension Non-insulin dependent type 2 diabetes mellitus Peripheral neuropathy PVD (peripheral vascular disease) Syncope and collapse Tobacco abuse Ventral hernia Surgical History Surgical History H/O left knee surgery 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 History of open reduction and internal fixation (ORIF) procedure LLE S/P hardware removal LLE S/P hernia repair x2 at [facility]- 20 years ago Tobacco Smoking/Tobacco Use Status: Current every day Tobacco Type: cigarettes Smoking packs per day: 1.5 Smoking cigarettes per day: 30.0 Years smoked: 20 Smoking pack-years: 30.00 Alcohol Alcohol Intake: never Substance Use Substance use: Never Substance use type: does not use Vital Signs and Lab Results Vital Signs Most Recent Vital Signs in EMR: Most Recent Vital Signs Temp Pulse Resp BP Pulse Ox 36.7 C 100 H 16 124/87 94 11/12/20 11:17 11/12/20 11:17 11/12/20 11:17 11/12/20 11:17 11/12/20 11:17 Point of Care Results Point of Care Results: Finger Stick Blood Glucose 171 11/12/20 11:31 Lab Results Blood Type / Crossmatch: No Data to Display Complete Blood Count: No Data to Display Complete Metabolic Panel: No Data to Display Liver Function Panel: No Data to Display Coagulation Panel: No Data to Display Cardiac Panel: No Data to Display Arterial Blood Gas: No Data to Display Venous Blood Gas: No Data to Display Pancreas Panel: No Data to Display Thyroid Panel: No Data to Display Infectious Disease: Coronavirus (COVID-19)(PCR) Negative (Negative) 11/10/20 09:50 11/10/20 Coronavirus 2019 Source Nasal/nares 11/10/20 09:50 11/10/20 Blood Cultures: No Data to Display Toxicology Panel: No Data to Display Imaging and Studies Imaging and Studies Echocardiogram Summary:: Date of Exam: 07/11/19 Indications: syncope vs. seizure Conclusion Left Ventricle : The left ventricle is normal. Left ventricular systolic function is normal. There is normal left ventricular wall thickness.? There is normal LV segmental wall motion. The left ventricular diastolic function is normal. LVEF is 55-59%. Right Ventricle : The right ventricle is normal size. The right ventricular systolic function is normal. Atria : Left atrium is mildly dilated. The right atrium size is normal. Aortic Valve : Aortic valve is trileaflet. Aortic valve leaflets are mildly thickened. No aortic regurgitation is present. There is no aortic valvular stenosis. Mitral Valve : Mitral valve leaflets are mildl to moderately? thickened. Trace mitral regurgitation. No evidence of mitral valve stenosis. Tricuspid Valve : The tricuspid valve is normal in structure. Trace tricuspid regurgitation. IVC: IVC is normal in size and collapses >50% with inspiration. There is no prior echocardiogram available for comparison. Anesthesia Assessment and Plan Anesthesia History Personal History: Delayed Emergence Family History: No Family History of Anesthesia Complications Exercise Tolerance Exercise Tolerance: Metabolic Equivalents>4 Pertinent Negatives Pertinent Negatives: No Symptoms of GERD Cardiac & Pulmonary Exam Cardiac Exam: Normal S1/S2 Heart Sounds Pulmonary Exam: Clear Bilateral Breath Sounds Airway Exam Known Difficult Airway: No Mallampati Class: 2 Mouth Opening: Normal (> 3cm) Thyromental Distance: Greater than 3 cm Neck Range of Motion: Full ROM Neck Circumference: Thick Teeth Condition: Edentulous ASA Classification ASA Score: ASA 2 Emergency Case?: No NPO Status NPO Status: NPO Clears >2 hours, Solids >8 hours Anesthesia Plan Resuscitation Status: Full Code Anesthesia Technique: General Anesthesia Airway Planned: Natural Airway Monitors Used: Standard Monitors
[2020-11-12 12:17] VITALS: BMI 33.5
--- NOTE | 2020-11-12 12:49 | BOWEL_PTH ---
PATIENT: Satnam Swan LOC: [facility] U#:[id number] AGE/SX: 50/M ROOM: RE11/12/[address]: Franchesca Zamorano : 1970 BED: DIS: 11/12/2020 SPEC #: [id number] RECD: 11/12/20 16:15 STATUS: DILLON RE #: [id number] DARLENE: 11/12/20 12:[address]: Franchesca Zamorano DEPT: Surgical Specimen RECD BY: Aislinn Cuevas ENTERED: 11/12/20 16:15 SP TYPE: Bowel OTHR DR: Crissy Leavitt Tissues: 1 - BIOPSY BOWEL Procedures: GROSS AND MICRO LEVEL 4 Comments: [id number]
--- NOTE | 2020-11-12 13:16 | COLE_ITS ---
Date of service: 11/12/20 Time of Service: 13:17 Colonoscopy Report Date of procedure: 11/12/20 Pre-op diagnosis general: + family Hx CRC Post-op diagnosis procedure note: other (polyp x1 small. diverticula ) Surgeon: Franchesca Zamorano Anesthesia Type: General:No Airway Estimated blood loss (mL): 0 Pathology: other Complications: None Disposition: same day Prep: Miralax/Dulcolax Retraction Time: 10 mins Procedure Description: After informed consent was obtained the patient was taken to the procedure room and placed in a left decubitous position. Monitors were applied and a time out was done. The patients name, date of , procedure, allergies to medications and metal in their body was reviewed. The patient was then sedated. Once sedated and comfortable a rectal exam was done. External exam was normal. Internal exam revealed a normal sphincter tone and no palpable masses. The scope was then introduced and retrofelexed. No internal hemorrhoids were identified. The scope was then advanced to the cecum with adequate difficulty. The TI and appendiceal orifice were identified. The prep was Adequate. Liquid stool does cover/coat the was of the colon. This was irrigated and washed. Small polyps less than 5 mm may have been missed. The scope was then slowly retracted over 10 minutes back into the rectum. There was a small, <5 mm polyp, in the rectum. This is removed with a cold forcep. All specimen is retrieved and no bleeding is noted. He does have minor diverticular disease confined to the sigmoid colon. There is no signs of active bleeding or infection. the Mucosa is pink and healthy otherwise. The scope was removed and the patient was woken up and taken back to Same day surgery in stable condition. The patient tolerated the procedure well and there were no immediate compl ications. Follow up: The patient should follow up in 5 years unless they develop changes in bowel habits or other new gastrointestinal complaints.
[2020-11-12 13:18] VITALS: BP 104/45; PULSE 91; RESP 16; TEMP 36.4; O2SAT 93
--- NOTE | 2020-11-12 13:19 | W.ANESPOSTOP ---
Postoperative Evaluation Date, Time and Location Date Performed: 11/12/20 Time Performed: 13:19 Patient Location: Day Surgery Unit Vital Signs Most Recent Imported Vital Signs: Most Recent Vital Signs Temp Pulse Resp BP Pulse Ox 36.7 C 100 H 16 124/87 94 11/12/20 11:17 11/12/20 11:17 11/12/20 11:17 11/12/20 11:17 11/12/20 11:17 Most Recent Manually Entered Vital Signs: Adult Blood Pressure: 104/45 Heart Rate: 92 Respirations: 16 Oxygen Saturation (%): 93 Temperature (C): 36.4 C Pain Score (0-10 Scale): 0 Pain Score Most Recent Pain Score: Most Recent Pain Score Pain Level 0 11/12/20 11:17 Assessment Mental Status: Awake (Alert & Oriented to Patient Baseline) Airway and Respiratory Function: Patent airway with normal (patient baseline) respiratory exam Cardiovascular Function: Hemodynamically Stable Hydration Status: Adequately Hydrated Nausea & Vomiting: No Nausea or Vomiting Pain: Pt. Denies Any Pain Peripheral Nerve Block: Patient did not receive a nerve block
--- NOTE | 2020-11-12 13:19 | W.PM.DSUDISC ---
Discharge Plan Disposition Patient Disposition: HOME Condition: Good Discharge Details Reason For Visit: colon scope Attending Provider: Franchesca Zamorano Primary Care Provider: Crissy Leavitt Home Meds and New Rx's Prescriptions: No Action Trulicity 0.75 mg/0.5 mL pen injector 0.75 mg subcut QWEEK RF: 0 lisinopril 10 mg tablet 10 mg PO DAILY RF: 0 atorvastatin 10 mg tablet 10 mg PO QHS RF: 0 duloxetine 30 mg capsule,delayed release(DR/EC) 30 mg PO DAILY RF: 0 amitriptyline 100 mg tablet 100 mg PO DAILY RF: 0 budesonide-formoterol [Symbicort] 80-4.5 mcg/actuation HFA aerosol inhaler 2 puff inhalation BID RF: 0 albuterol sulfate [ProAir HFA] 90 mcg/actuation HFA aerosol inhaler 2 puff inhalation Q6H PRNRF: 0 acetaminophen [Tylenol] 325 mg Tablet 650 mg PO Q4H PRN PRNQty: 0 RF: 0 ibuprofen [IBU] 600 mg Tablet 600 mg PO Q6H PRN PRNQty: 0 RF: 0 metformin 500 mg Tablet Extended Release 24 Hr 1,000 mg PO DAILY Qty: 60 RF: 0 Discharge Instructions Additional Instructions: [facility] Colonoscopy Post-Op Instructions Instructions for Everyone who is given Anesthesia: For your safety, please do the following for the next twenty-four (24) hours: *Do Not operate a motor vehicle (car, truck, motorcycle, etc.) *Do Not drink alcoholic beverages or use any recreational drugs for the first 24 hours or while taking pain medications. The medications in your body may have a reaction that can be dangerous. *Do Not make any important decisions or sign any important papers. Findings:diverticula -Make sure you are moving your bowels on a regular basis and not straining to go to the bathroom. If you find that you are having constipation start a fiber supplement such as Metamucil daily. -There was one small polyp. My office will send a letter in 3 to 4 weeks time with the results of pathoology. Follow up: He should have a repeat colonoscopy in 5 years time 1. No lifting over 20 pounds or strenuous activity for the first 24 hours after your procedure. After 24 hours there are no restrictions on your activity but you may feel fatigued for a few days. 2. After you arrive home you may have a light meal and return to your normal diet as you can tolerate it without feeling sick to your stomach. 3. You may have a bloated, gaseous feeling in your belly (abdomen) after a colonoscopy. Passing gas and belching will help. Walking or lying down on your left side with your knees flexed may relieve the discomfort. Call the office at [phone] (Office) or [phone] (Hospital) right away if you notice any of the following: a.Vomiting of blood or ?coffee ground stools?. b.Rectal bleeding 1Tbsp, blood clots or continuous bleeding. c.Severe belly (abdominal) pain. d.A hard distended belly (abdomen) and an inability to pass gas. 4. Please don?t expect to have a normal BM (bowel movement) for 2-3 days after your procedure. 5. If there are questions regarding the findings of your procedure, please contact your doctor 6. If you are unable to contact your doctor with a problem, contact the hospital at [phone]. 7. Continue all your regular medications unless directed otherwise. I understand the above instructions and have no questions. Signature of Patient or Adult Escort Name of Responsible Adult Escort Signature of Nurse Date/Time DIVERTICULAR DISEASE OVERVIEW???A diverticulum is a pouch-like structure that can form through points of weakness in the muscular wall of the colon (ie, at points where blood vessels pass through the wall). Diverticulosis affects men and women equally. The risk of diverticular disease increases with age. It occurs throughout the world but is seen more commonly in developed countries. WHAT IS DIVERTICULAR DISEASE? Diverticulosis???Diverticulosis merely describes the presence of diverticula. Diverticulosis is often found during a test done for other reasons, such as flexible sigmoidoscopy, colonoscopy, or barium enema. Most people with diverticulosis have no symptoms and will remain symptom free for the rest of their lives. A person with diverticulosis may have diverticulitis, or diverticular bleeding. Diverticulitis???Inflammation of a diverticulum (diverticulitis) occurs when there is thinning and breakdown of the diverticular wall. This may be caused by increased pressure within the colon or by hardened particles of stool, which can become lodged within the diverticulum. The symptoms of diverticulitis depend upon the degree of inflammation present. The most common symptom is pain in the left lower abdomen. Other symptoms can include nausea and vomiting, constipation, diarrhea, and urinary symptoms such as pain or burning when urinating or the frequent need to urinate. Diverticulitis is divided into simple and complicated forms. ?Simple diverticulitis, which accounts for 75 percent of cases, is not associated with complications and typically responds to medical treatment without surgery. ?Complicated diverticulitis occurs in 25 percent of cases and usually requires surgery. Complications associated with diverticulitis can include the following: ?Abscess ? a localized collection of pus ?Fistula ? an abnormal tract between two areas that are not normally connected (eg, bowel and bladder) ?Obstruction ? a blockage of the colon ?Peritonitis ? infection involving the space around the abdominal organ ?Sepsis ? overwhelming body-wide infection that can lead to failure of multiple organs Diverticular bleeding???Diverticular bleeding occurs when a small artery located within a diverticulum is eroded and bleeds into the colon. Diverticular bleeding usually causes painless bleeding from the rectum. In approximately 50 percent of cases, the person will see maroon or bright red blood with bowel movements. Is bleeding with a bowel movement normal?It is not normal to see blood in a bowel movement; this can be a sign of several conditions, most of which are not serious (eg, hemorrhoids) but some of which are serious and require immediate treatment. Anyone who sees blood after a bowel movement should consult with their healthcare provider to determine if further testing or evaluation is needed. DIVERTICULOSIS AND DIVERTICULITIS DIAGNOSIS???Diverticulosis is often found during tests performed for other reasons. ?Barium?enema ? This is an x-ray study that uses barium in an enema to view the outline of the lower intestinal tract. This is an older test and has been largely replaced by computed tomography (CT) scan. ?Flexible sigmoidoscopy ? This is an examination of the inside of the sigmoid colon with a thin, flexible tube that contains a camera. ?Colonoscopy ? This is an examination of the inside of the entire colon. ?CT scan ? A CT scan is often used to diagnose diverticulitis and its complications. If diverticulitis (not just diverticulosis) is suspected, the above three tests should not be used because of the risk of perforation. TREATMENT Diverticulosis???People with diverticulosis who do not have symptoms do not require treatment. However, most clinicians recommend increasing fiber in the diet, which can help to bulk the stools and possibly prevent the development of new diverticula, diverticulitis, or diverticular bleeding. Fiber is not proven to prevent these conditions in all patients but may help to control recurrent episodes in some. Increase fiber???Fruits and vegetables are a good source of fiber.? Fiber content of packaged foods can be calculated by reading the nutrition label. Seeds and nuts???Patients with diverticular disease have historically been advised to avoid whole pieces of fiber (such as seeds, corn, and nuts) because of concern that these foods could cause an episode of diverticulitis. However, this belief is completely unproven. We do not suggest that patients with diverticulosis avoid seeds, corn, or nuts. Diverticulitis???Treatment of diverticulitis depends upon how severe your symptoms are. Home treatment???If you have mild symptoms of diverticulitis (mild abdominal pain, usually left lower abdomen), you can be treated at home with a clear liquid diet and oral antibiotics. However, if you develop one or more of the following signs or symptoms, you should seek immediate medical attention: ?Temperature >100.1?F (38?C) ?Worsening or severe abdominal pain ?An inability to tolerate fluids Hospital treatment???If you have moderate to severe symptoms, you may be hospitalized for treatment. During this time, you are not allowed to eat or drink; antibiotics and fluids are given into a vein. If you develop an abscess of the colon, you may require drainage of the abscess (usually performed by placing a drainage tube across the abdominal wall) or by surgically opening the affected area. Surgery???If you develop a generalized infection in the abdomen (peritonitis), you will usually require an emergency operation. A two-part operation may be necessary in some cases. ?The first operation involves removal of the diseased colon and creation of a colostomy. A colostomy is an opening between the colon and the skin, where a bag is attached to collect waste from the intestine. The lower end of the colon is temporarily sewed closed to allow it to heal. ?Approximately three to six months later, a second operation is performed to reconnect the two parts of the colon and close the opening in the skin. You are then able to empty your bowels through the rectum. Sometimes patients require up to a year to recover from the first operation, depending on how sick they were. In non-emergency situations, the diseased area of the colon can be removed and the two ends of the colon can be reconnected in one operation, without the need for a colostomy. Surgery versus medical therapy???An operation to remove the diseased area of the colon may be necessary if you do not improve with medical therapy. After an episode of uncomplicated diverticulitis, elective surgery is generally not required as the risk of another attack or requiring emergency surgery is low. However, patients with persistent symptoms attributable to diverticulitis, a history of complicated diverticulitis, or a compromised immune system should be evaluated for possible surgery to prevent another attack. In such patients, another attack has been associated with a higher risk of complications or . Of course, the decision will also depend in part upon your other medical conditions and ability to undergo surgery. In many cases, an elective operation can be performed laparoscopically, using small incisions, rather than the typical vertical (up and down) abdominal incision. Laparoscopic surgery usually allows you to recover more quickly and shortens the hospital stay. After diverticulitis resolves???After an episode of diverticulitis resolves, if you have not had a recent colonoscopy, the entire length of the colon should be evaluated to determine the extent of disease and to rule out the presence of abnormal lesions such as polyps or cancer. Recommended tests include colonoscopy, barium enema and sigmoidoscopy, or CT colonography. Diverticular bleeding???Most cases of diverticular bleeding resolve on their own. However, some people will need further testing or treatment to stop bleeding, which may include a colonoscopy, angiography (a treatment that blocks off the bleeding artery), bleeding scan, or surgery. DIVERTICULAR DISEASE PROGNOSIS Diverticulosis???Over time, diverticulosis may cause no problems or it may cause episodes of bleeding and/or diverticulitis. Approximately 15 to 25 percent of people with diverticulosis will develop diverticulitis, while 5 to 15 percent will develop diverticular bleeding. Diverticulitis???Approximately 85 percent of people with uncomplicated diverticulitis will respond to medical treatment, while approximately 15 percent of patients will need an operation. After successful treatment for a first attack of diverticulitis, one-third of patients will remain asymptomatic, one-third will have episodic cramps without diverticulitis, and one-third will go on to have a second attack of diverticulitis. The prognosis tends to remain similar following a second attack of diverticulitis. Only 10 percent of people remain symptom-free after a second attack. Subsequent attacks tend to be of similar severity, not increasing in severity as previously believed. ? ? ? High Fiber Diet What is Dietary Fiber? All fiber comes from plants, bushes, amy or trees.? Of course, the ones that we eat provide us with fruits, vegetables and grains.? There are many different types of fiber but the three that are most important to the health of the body are: Insoluble Fiber This fiber does not dissolve in water, nor is it fermented by the bacteria residing in the colon.? Rather, it retains water and in so doing, helps to promote a larger, bulkier and more regular bowel activity.? This, in turn, may be important in preventing disorder such as diverticulosis and hemorrhoids, and in sweeping out certain toxins and cancer causing carcinogens.? Sources of insoluble fiber are: ? whole grain wheat and other whole grains ? corn bran, including popcorn, unflavored and unsweetened ? nuts and seeds ? potatoes and the skins from most fruits from trees such as apples, bananas and avocados ? many green vegetables such as green beans, zucchini, celery and cauliflower ? some fruit plants such as tomatoes and kiwi Soluble Fiber These fibers are fermented or used by the colon bacteria as a food source or nourishment.? When these good bacteria grow and thrive, many health benefits occur in both the colon and the body.? Soluble fiber is present in some degree in most edible plant foods, but the ones with the most soluble fiber include: ? legumes such as peas and most beans, including soybeans ? oats, rye and barley ? many fruits such as berries, plums, apples bananas and pears ? certain vegetables such as broccoli and carrots ? most root vegetables ? psyllium husk supplement products Prebiotic Soluble Fiber These are relatively newly discovered soluble plant fibers.? The technical name for this fiber is inulin or fructan. When these soluble fibers are fermented by the good colon bacteria, some further significant health benefits have been shown to occur by research in many medical centers. These soluble prebiotic fibers occur in significant amounts in: ? asparagus ? yams ? onions ? garlic ? bananas ? leeks ? agave ? chicory and other root vegetables such as [place] artichokes ? wheat, rye and barley (smaller amounts) Benefits of a High Fiber Diet The health benefits of a high fiber diet, consumed on a regular basis and reaching recommended amounts (below), are now fairly well-defined. There are some additional benefits in the early research stage with the prebiotic soluble fibers. What is now known regarding a high fiber diet include: Bowel Regularity A high fiber diet promotes regularity with a softer, bulkier and regular stool pattern. This decreases the chance of hemorrhoids, diverticulosis and perhaps colon cancer. Cholesterol and Reduced Triglycerides The soluble fibers are the ones that will reduce cholesterol levels when used on a regular basis. Psyllium husk and prebiotic soluble fiber will also reduce cholesterol. They may also reduce the incidence of coronary heart disease. Oats, flax seeds and legumes or beans are the recommended fibers. Colon Polyps and Cancer It is still not certain if a high fiber diet helps prevent colon cancer. Considerable research suggests that this may occur. Certainly it makes sense to increase regularity and so speed the movement of cancer causing carcinogens through the bowel. In addition, reducing a heavy meat diet reduces the bile flow from the liver in a favorable way. This, too, reduces the amount of carcinogens that reach and are manufactured in the colon. Finally, a high fiber diet, including prebiotic soluble fiber, increases the integrity and health of the wall of the colon. The risk of cancer may be reduced. Colon Wall Integrity A high fiber diet changes the bacterial makeup of the colon toward a more favorable balance. For instance, it is known that those people with obesity, diabetes type 2 and inflammatory bowel disease have a predominance of bad bacteria in the colon. This, in turn, may render the bowel wall weak and allow bacteria and, indeed, even toxins to seep through. A high fiber diet with a modest reduction in animal and meat products may return the bacterial makeup to a more positive balance. This, in particular, has been seen when the soluble fiber prebiotics are added to the diet. Blood Sugar Soluble fiber such as in legumes (beans), oats and in prebiotic fibers slows the absorption of blood sugar and so helps regulate the sugar in the blood. Insoluble fiber on a regular basis is associated with reduced risk of type 2 diabetes. Weight Loss High fiber diets are more filling and give a sense of fullness sooner than an animal and meat based diet does. In addition, the soluble prebiotic fibers have been shown to turn off the hunger hormones produced in the wall of the gut and to increase the hormones that give a sense of fullness. Those hormones are made in the wall of the gut. New medical research has shown that the bacterial makeup in the colon in overweight people is abnormal to the extent that they manufacture and absorb almost twice the number of calories through the colon wall as do normals. Prebiotic fibers (below) will help change this hormonal balancein a favorable way. Bacteria and the Function of the Colon The colon finishes the digestive process. Hopefully, the waste products move through in a nice regular manner. Insoluble fibers help this process by retaining water and so producing a bulkier, softer stool, which is easy to pass. The additional role of the colon is to provide a home for an enormous number of micro-organisms, mostly bacteria. Recent research has shown that there are over 1,000 species of bacteria with a total bacterial count ten times the number of cells in the body. These bacteria play a major role in keeping the colon wall itself healthy. In addition, these good bacteria produce a very strong immune system for the body. They significantly increase calcium absorption and bone density. They provide other documented benefits. It is the soluble fibers in the diet that are so effective in stimulating the growth of good colon bacteria. How Much is Enough? The amount of fiber in food is measured in grams.? National nutritional authorities recommend the following amounts of dietary fiber daily. Under Age 50? Over Age 50 Men? 38 grams? 30 grams Women??? 25 grams? 21 grams For a week or so, it is best to tally the amount of fiber you are consuming.? Boxed and packaged foods will have the amount of fiber per serving on the nutrition label. Which Fibers and Which Foods are Best? As noted, healthy fiber is only found in plants. The three major categories are whole grains, fruits and vegetables. Whole Grains Wheat, oats, barley, wild or brown rice, amaranth, buckwheat, bulgur, corn, millet, quinoa, rye, sorghum, teff and triticals. By far, wheat, oats and wild or brown rice are most common. Always buy whole grain products. White bread, baked goods and rolls almost always are made from wheat flour. Wheat flour is white because most of the fiber, vitamins and other nutrients have been removed. Try not buy enriched grains. What this means is that simple white flour has had vitamins added to it by the big data software engineer. The word, enriched, implies a good and healthy product. On the contrary, enriched means that most of the fiber has been removed and a few vitamins added. Fruits Fruits come from trees such as apple and pear or from bushes or amy. You should eat a wide variety of fruits, preferably with every meal. In many cases, the skin of a fruit such as apple will contain much of the insoluble fiber while the pulp contains most of the soluble fiber. To the extent possible, buy organic fruits as these will have little or no pesticides. Always wash fruit. Vegetables Eat a wide variety of vegetables. They should be a mainstay of lunch and dinners. Frozen vegetables retain as much nutrition and fiber as fresh vegetables. As with fruit, try to buy organic to reduce any residual pesticide ingestion. Wash fresh vegetables thoroughly. Cruciferous vegetables such as broccoli, [place] sprouts and cauliflower contain certain chemicals such as sulforaphane. This substance has very strong anti-cancer properties and should be eaten frequently. Legumes, Beans, Peas and Soybeans These vegetables have plenty of soluble fiber and should be part of a varied vegetable intake. Beans, in particular, contain a certain type of fiber that may lead to harmless gas or bloating. Nuts and Seeds These are rich sources of fiber and are a good substitute for sweets such as candies and baked sweet goods. While nuts and seeds are rich in fiber, they also contain vegetable fat and so can and do add calories. Read the Labels As noted, fresh and frozen foods are usually better.? They have good nutrition and few, if any, chemicals added to them.? When buying packaged foods and, in particular grains, look for three things: ? The first word on the label should be whole, such as whole wheat or whole grain. ? Check out the calories and the amount of fiber in a serving. ? How many and what other additives or chemicals are added.? Fewer is always better.? Do you know what each additive does?? Some are added not for the benefit of the stock buyer but rather for manufacturers.? These could and do include sugar, artificial flavor, chemicals to prevent oxidation and spoilage, emulsifiers to blend the product.? You have to be a clin nurse. Fiber Facts, Nuggets and Pearls ? For breakfast you can easily get the day started well by using a high fiber, whole grain cereal.? Check the labels.? Add fruit such as blueberries and bananas.? If you are an egg eater, use whole wheat or grain toast.? Adding wheat germ gives you a good fiber kick. ? Always use whole grain or wheat with rolls and sandwiches.? Does your fast food store not have them?? Perhaps you look elsewhere.? Eating an occasional black rogers or veggie burger provides variety. ? Snacks should consist of fruit and/or nuts.? While nuts are loaded with fiber, they are an energy rich food, meaning they have a lot of calories in a small packet. ? Fruit juices should contain pulp.? Clear juices such as clear orange, pear or apple juice contain little fiber and have a lot of fructose.? Prune juice is usually high in fiber. ? Homemade soups ? adding fresh or frozen vegetables to a chicken or vegetable stock is a good way to start homemade soup. ? Salads ? adding cooked and then chilled vegetables provide great flavoring to almost any salad.? Remember, a braxton salad has lots of cooked corn in it.? Small slices of apples or oranges and nuts such as chopped walnuts or sliced almonds always adds taste, variety and fiber to almost any salad. ? Fruit ? Try to eat fruit of some type with almost every meal. ? Rethink how you place the various foods on your dinner plate.? Reducing the portions of the meat or animal food portion to the side with equal or more portions of vegetables, legumes and fruits portion always allows for more fiber.? There was never anything magic about making the meat or animal food portion the main part of the dinner plate.? Eating from smaller plates can, over time, trick your mind and long term care administrator habit of using a dinner plate.? Again, there is nothing magic in an 11, 12, or 13 inch dinner plate. Fiber Supplements There are a variety of fiber supplements available on the food or pharmacy shelves. Psyllium This soluble plant fiber has been used in [place] for over 2,000 years. It is a soluble fiber with mucilage in it. This acts to retain a lot of water and also is fermented by colon bacteria. When 7 grams a day are used, it does lower cholesterol. Metamucil in various forms is psyllium. Methyl Cellulose All the cellulose products come from finely ground wood chips which are then treated in a variety of ways such as boiling in acids. Methyl cellulose is an insoluble fiber which does dissolve in water. It is also an emulsifier, meaning it blends oils and water. Citrucel is methyl cellulose (MC). MC may not be appropriate for Crohn?s disease or ulcerative colitis as several medical studies have shown that certain emulsifiers dissolve the mucous lining of the colon in animals prone to Crohn?s disease. This then allows bacteria to invade the underlying tissue. Inulin Inulin is a soluble prebiotic fiber found in many foods and which are fermented mostly in the left side of the colon. It is available in a supplement as generic inulin and in Fiber Choice. Oligofructose FOS These are also prebiotic fibers. They are fermented very quickly in the right side of the colon. [email or web address] This product is a combination of oligofructose, which feeds the bacteria in the right side of the colon and inulin, which does the same in the left side of the colon. There seems to be a benefit for this particular formula based on medical research. Prebiotic Soluble Fiber These may be the healthiest of all the soluble fibers.? They grow in many plants and have had a great deal of research done on them in the last 10-15 years.? These fibers are found in asparagus, yams and other root vegetables such as chicory, garlic, onion, leeks and in smaller amounts in wheat.? This research has shown the following: ? Increase in good and decrease in bad colon bacteria ? Increase calcium absorption and enhanced bone mass ? Enhanced immune system ? Appetite and weight control by changing the hormone appetite signals to the brain ? May decrease colon cancer incidence ? Reduce or correct a leaky colon Eating a wide variety of plant food up to the recommended amount will likely give you enough prebiotic fiber. Supplements such as [email or web address] can be added to the diet. Short Chain Fatty Acids (SCFA) Some rather remarkable research findings have shown that one of the benefits of ingesting a lot of soluble fiber, in particular the prebiotic ones, results in larger amounts of SCFAs in the colon.? These SCFAs are made by the good bacteria in the colon such as Bifidobacter and Lactobacillus.? These small molecules have been shown to do the following: ? Enhance the health and integrity of the colon wall ? Provide nourishment for the cells that actually line the colon ? Increases the acidity of the colon which is a very real health benefit ? Stabilize blood sugar for diabetics ? Reduce blood cholesterol and triglyceride ? Significantly enhance immunity ? May be a benefit for Crohn?s disease and ulcerative colitis patients Fiber and Gas Everyone has intestinal gas and that is a good thing.? It means that bacteria, hopefully the good ones, are thriving.? The normal amount of flatus passed each day depends on sex and what is eaten.? The normal number of flatus is 10-20 times a day.? When the bacteria that make intestinal gases are growing, it also means that other good bacteria are using the same fibers to grow and produce multiple health benefits, including the production of healthy short-chain fatty acids.? These substances are produced quietly in the colon and produce many health-related outcomes. Soluble fiber should always be used in a gradual manner.? If too much is consumed at any one time, then excess, but harmless, intestinal gas can occur.? People with irritable bowel syndrome are particularly prone to bloating and mild cramping.? In this instance, soluble fiber in the diet or supplement should be used in small doses and increased gradually. Finally, prebiotic fibers tend to cause the production of short-chain fatty acids which acidify the colon.? This, in turn, reduces or stops the growth of bacteria that make the smelly hydrogen sulfide gases that produce noxious flatus.? People who consume many vegetables with prebiotics or take a prebiotic fiber supplement often have non-odoriferous flatus. Fiber and Irritable Bowel Syndrome Irritable bowel syndrome (IBS) is one of the most common disorders of the lower digestive tract.? The symptoms of IBS can be quite varied.? They can be a mix of several symptoms such as constipation, diarrhea, crampy abdominal discomfort, bloating and gas.? An attack of IBS can be triggered by emotional tension and anxiety, poor dietary habits and certain medications.? It is now known that infections in the intestine can lead to long-term IBS symptoms.? Increased amounts of fiber in the diet can help relieve the symptoms of irritable bowel syndrome by producing soft, bulky stools.? This helps to normalize the time it takes for the stool to pass through the colon.? Recent medical research with newer techniques has shown some surprising and dramatic findings for IBS patients.? Specifically, there is a very significant and abnormal shift of bacteria from those that provide health benefits to those bad bacteria that we really do not want in the gut.? The technical name for this bad group of bacteria is called Firmicutes.? Along with this abnormal bacterial collection, there is a smoldering low-grade inflammation in the gut wall that may contribute to symptoms.? The goal for IBS patients should be to gradually increase the soluble dietary fibers in the diet so as to promote the growth of good bacteria and so suppress the bad ones along with the associated inflammation. IBS patients need to be careful of the amount of soluble fiber they consume.? The reason for this is that, while the good colon bacteria thrive on these fibers and produce health benefits, other gas-forming bacteria may generate excessive but harmless gas and subsequent bloating.? Thus, soluble plant fibers or a dietary prebiotic supplement should be taken in small initial doses and then gradually increased to tolerance. Fiber and Colon Polyps/Cancer Colon cancer is a major health problem. This disease is most common in Western cultures. It is not seen very often in rural cultures where the diet is mostly plant based. Usually, colon cancer starts out as a colon polyp, a benign mushroom-shaped growth. In time it grows, and in some people it becomes cancerous. Colon cancer is usually always curable if polyps are removed when found or if surgery is performed at an early stage. It is now known that people can inherit the risk of developing colon cancer, but diet is important, too. As noted, there is a very low rate of colon cancer in residents of countries where grains are unprocessed and retain their fiber. It seems that in the Western world, cancer-containing agents (carcinogens) remain in contact with the colon wall for a longer time and in higher concentrations. So, a large bulky stool may act to dilute these carcinogens by moving them through the bowel more quickly. Less carcinogenic exposure to the colon may mean fewer colon polyps and less cancer. A very current review of the entire world?s literature on the effect of fiber on colon polyps and cancer prevention has shown rather clearly that for every 10 grams of fiber added to the diet, there is a 10% reduction in incidence of colon cancer. So the recommended 30 gram fiber diet would result in a 30% less chance of getting these tumors. There are also substances produced in the colon by the good bacteria that seem to retard certain pre-cancer factors from developing. They are called short-chain fatty acids (SCFA). See above for description of SCFAs. A high fiber diet increases these substances. So, the combination of dietary fiber and the production of short-chain fatty acids have a clear health benefit. Fiber and Diverticulosis Prolonged, vigorous contraction of the colon over a long period of time may result in diverticulosis.? This increased pressure causes small and, eventually, larger ballooning pockets to form.? These pockets by themselves cause no problem.? However, sometimes they become infected (diverticulitis) or even break open (perforate) causing infection or inflammation within the abdomen (peritonitis).? A high fiber diet increases the bulk in the stool and thereby reduces the pressure within the colon.? By so doing, the formation of pockets may be reduced or possibly even stopped. In the past, many physicians were fearful that seeds as in tomatoes, nuts or berries were harmful and could get inside these pockets and rattle around, causing damage. We now know that this has never been the case and that these foods contain lots of fiber and are actually beneficial for diverticulosis patients. Certain bulking agents such as psyllium are traditional types of bulk producing supplements.? Psyllium is a soluble fiber.? Combining it with insoluble fiber as in wheat bran or corn bran (no gluten) can enhance this bulking effect even more.? A product containing a prebiotic, psyllium and wheat bran is probably a very good combination for bowel regularity. [email or web address] Regularity/Diverticulosis is one such product. Activity:: as above Diet:: as above Discharge Orders Discharge Orders: Discharge Order (Routine); Ordered 11/12/20 Ordered By: Franchesca Zamorano DS: Diagnosis Discharge Diagnosis (1) Encounter for colonoscopy in patient with family history of colon cancer: Status: Acute (2) Diverticula of colon: Status: Acute
[2020-11-12 13:21] VITALS: BP 104/45; PULSE 92; RESP 16; TEMPC 36.4; O2SAT 93
[2020-11-12 13:51] VITALS: BP 131/77; PULSE 68; RESP 18; TEMP 36.7; O2SAT 93
== END 2020-11-12 14:10 | disposition home or self-care (01) ==
PROVIDERS: PCP Nurse Practitioner Family; Visit Provider Surgery
PROC: 0DJD8ZZ Inspection of Lower Intestinal Tract, Via Natural or Artificial Opening Endoscopic (ICD-10-PCS; CPT 45378; principal; 2020-11-12 11:45)
DX: Z12.11 Encounter for screening for malignant neoplasm of colon (principal); K62.1 Rectal polyp; Z80.0 Family history of malignant neoplasm of digestive organs; K57.30 Diverticulosis of large intestine without perforation or abscess without bleeding
CPT/HCPCS: 45380; 88305; J2001; J2704

== ENCOUNTER 2020-11-18 12:09 | Outpatient (REF) | payer MEDICAID, SELFPAY | END 2020-11-18 12:10 | disposition home or self-care (01) | LOC: NCHCN 12:09 | PROVIDERS: PCP Nurse Practitioner Family; Visit Provider Nurse Practitioner Family | DX: E11.621 Type 2 diabetes mellitus with foot ulcer (principal); L97.521 Non-pressure chronic ulcer of other part of left foot limited to breakdown of skin | CPT/HCPCS: 87077; 87070; 87186; 87205 ==

== ENCOUNTER 2020-12-03 06:05 | Day surgery (SDC) | payer MEDICAID, SELFPAY ==
[2020-12-03 06:20] VITALS: BP 124/89; PULSE 102; RESP 18; TEMP 36.4; O2SAT 94
[2020-12-03] MEDS: Lactated Ringers 1,000 ML 80 ML IV (06:49)
[2020-12-03] MEDS: ceFAZolin 2 GM/50 ML BAG IVPB (07:33)
[2020-12-03] MEDS: Bupivacaine 0.5% Pres-Free 30 ML VIAL (07:37)
--- NOTE | 2020-12-03 07:45 | AMP_PTH ---
PATIENT: Satnam Swan LOC: [facility] U#:[id number] AGE/SX: 50/M ROOM: RE12/03/[address]: Jordin Roche : 1970 BED: DIS: 12/03/2020 SPEC #: [id number] RECD: 12/03/20 12:13 STATUS: DILLON SHERIDAN #: [id number] DARLENE: 12/03/20 07:[address]: Jordin Roche DEPT: Surgical Specimen RECD BY: Aislinn Cuevas ENTERED: 12/03/20 12:14 SP TYPE: Amputation OTHR DR: Crissy Leavitt Tissues: 1 - AMPUTATION FINGERS/TOES(NOT TRAUMA) Procedures: GROSS AND MICRO LEVEL 4 DECALCIFICATION Comments: [id number]
--- NOTE | 2020-12-03 08:09 | W.PM.DSUDISC ---
Discharge Plan Disposition Patient Disposition: OTHER Condition: Fair Discharge Details Reason For Visit: Debridement left third toe Attending Provider: Jordin Roche Primary Care Provider: Crissy Leavitt Home Meds and New Rx's Prescriptions: No Action Trulicity 0.75 mg/0.5 mL pen injector 0.75 mg subcut QWEEK RF: 0 lisinopril 10 mg tablet 10 mg PO DAILY RF: 0 atorvastatin 10 mg tablet 10 mg PO QHS RF: 0 duloxetine 30 mg capsule,delayed release(DR/EC) 30 mg PO DAILY RF: 0 amitriptyline 100 mg tablet 100 mg PO DAILY RF: 0 budesonide-formoterol [Symbicort] 80-4.5 mcg/actuation HFA aerosol inhaler 2 puff inhalation BID RF: 0 albuterol sulfate [ProAir HFA] 90 mcg/actuation HFA aerosol inhaler 2 puff inhalation Q6H PRNRF: 0 acetaminophen [Tylenol] 325 mg Tablet 650 mg PO Q4H PRN PRNQty: 0 RF: 0 metformin 500 mg Tablet Extended Release 24 Hr 1,000 mg PO DAILY Qty: 60 RF: 0 Discharge Instructions Activity:: Elevate Remove Dressings/Wound Care:: Do Not Remove Shower/Bathe:: Cover Activity:: Activity as Tolerated Diet:: Carb Counting Discharge Orders Discharge Orders: Discharge Order (Routine); Ordered 12/03/20 Ordered By: Jordin Roche DS: Diagnosis Discharge Diagnosis (1) 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
--- NOTE | 2020-12-03 08:14 | W.PM.OP ---
Date of service: 12/03/20 Time of Service: 08:14 Operative Note Operative Note Refer to Anesthesia Record for vital signs Satnam was brought to the operative suite walked in on his own. He was placed in the supine position. He was noted to be clearing his throat and doing a little bit of coughing but was in no distress. His head was slightly elevated which appeared to help. The left third toe was anesthetized with 8 cc of a 50: 50 mixture 1% lidocaine with epinephrine 1 100,000, 0.5% Marcaine plain as a digital block. He was then prepped and draped in the usual sterile podiatric fashion. Attention was directed to the left third toe with 2 converging semielliptical incisions were placed dorsal and plantarly distal to the PIPJ so as to create dorsal and plantar flaps in an effort to debride away the infected tissue of the third toe. He does have a full-thickness ulceration at the tip of the toe which tracks to bone. There is localized erythema extending to the PIPJ level. No estefania purulence is observed. The flaps are deepened with a 15 scalpel and raised. Once again no purulence is identified the extensor tendon is cut at the PIPJ level and the incision is carried down both medially and laterally to the plantar side of the foot. The flexor tendon was then cut at the PIPJ level as well and the distal component of the toe removed. Cultures were obtained at this level. No active bleeders were noted. The wound was copiously irrigated with normal saline and the wound was closed loosely with 3-0 nylon in a near far far near padded interspersed by a couple of simple interrupted suture. The wound was dressed with Xeroform gauze fluff compression dressings. Satnam continue to cough and appear to be short of breath. O2 was in the upper 80s which is slightly down from the 94% noted on his admission. Based on his ongoing shortness of breath I decided to have him transferred to the ER for evaluation and treatment.
--- NOTE | 2020-12-03 08:44 | NUR.NOTE ---
Nursing Note: 0803 12/03/20-Pt. transferred to PACU for possible admission to PACU. Monitors on,O2 on 4 LPM via NC. HR 115,BP 135/100, Sats 88%-91%, Resps 26. Pt pink and SOB. Denies chest pain,pressure,difficulty swallowing or throat tightness. DR Roche in and made decision to transfer pt to ER for complete work up. ER notified and pt transferred on O2. Report given in ER to KIM Gandhi.Mother of patient notified and updated on pts status and whereabouts. Personal possessions taken to ER.
== END 2020-12-03 06:06 | disposition home or self-care (01) ==
PROVIDERS: PCP Nurse Practitioner Family; Visit Provider Podiatrist
PROC: (CPT 28825; principal; 2020-12-03 07:30)
DX: E11.621 Type 2 diabetes mellitus with foot ulcer (principal); L97.526 Non-pressure chronic ulcer of other part of left foot with bone involvement without evidence of necrosis; M86.9 Osteomyelitis, unspecified; J44.9 Chronic obstructive pulmonary disease, unspecified
CPT/HCPCS: 28825; 87077; 88300; 88305; 87070; 87075; 87186; 87205; 88311; J0690; J1100

== ENCOUNTER 2020-12-03 08:11 | Emergency (ER) | payer MEDICAID, SELFPAY ==
[2020-12-03] VITALS (46 sets, daily range): BP systolic 103–135; BP diastolic 47–91; PULSE 90–115; RESP 4–38; TEMP 36.4–37.1; O2SAT 82–98
--- NOTE | 2020-12-03 08:17 | ED.GENADUL_ITS ---
Discharge Plan Disposition Patient Disposition: HOME Condition: Stable Discharge Details Clinical Impression: Anaphylactic reaction, Asthma exacerbation in COPD Primary Care Provider: Crissy Leavitt ED Provider: Poncho Allen Home Meds and New Rx's Prescriptions: New prednisone 20 mg tablet 40 mg PO DAILY Qty: 8 RF: 0 clindamycin HCl 300 mg capsule 300 mg PO TID Qty: 21 RF: 0 Continued Trulicity 0.75 mg/0.5 mL pen injector 0.75 mg subcut QWEEK RF: 0 lisinopril 10 mg tablet 10 mg PO DAILY RF: 0 atorvastatin 10 mg tablet 10 mg PO QHS RF: 0 duloxetine 30 mg capsule,delayed release(DR/EC) 30 mg PO DAILY RF: 0 amitriptyline 100 mg tablet 100 mg PO DAILY RF: 0 budesonide-formoterol [Symbicort] 80-4.5 mcg/actuation HFA aerosol inhaler 2 puff inhalation BID RF: 0 albuterol sulfate [ProAir HFA] 90 mcg/actuation HFA aerosol inhaler 2 puff inhalation Q6H PRNRF: 0 acetaminophen [Tylenol] 325 mg Tablet 650 mg PO Q4H PRN PRNQty: 0 RF: 0 metformin 500 mg Tablet Extended Release 24 Hr 1,000 mg PO DAILY Qty: 60 RF: 0 Discharge Instructions Instructions: Anaphylaxis (ED), Antibiotic Medication Allergy (ED) Additional Instructions: Please take prednisone and albuterol inhaler as prescribed. Please be sure to use a spacer with your inhaler. You received initial dose of steroid here in emergency department. Your next dose of prednisone is tomorrow. Continue take Benadryl 25 mg by mouth every 12 hours for the next 3 days. Please stop taking penicillin based antibiotics including amoxicillin or Augmentin. I am concerned that you are now allergic to penicillin based antibiotics and cephalosporins. Be sure to discuss this with any physician in the future who is prescribing you antibiotics. You may wish to follow-up with a program support specialist for definitive testing. You have been started on a new antibiotic called clindamycin. Please take this as prescribed. Please contact your primary care physician to arrange follow-up. Return to the ER immediately for any worsening or new concerning symptoms. Referrals: Crissy Leavitt [Primary Care Provider] - Discharge Data Discharge Date/Time-TO BE ENTERED AT DEPARTURE: 12/03/20 12:59 Medical Decision Making 855??50-year-old male with COPD, osteomyelitis of his left foot, here having a p odiatric procedure, developed full body rash and shortness of breath after receiving Ancef IV. Patient in respiratory distress on arrival. Concern for acute anaphylactic reaction likely to Ancef. Patient was given epinephrine 0.3 mg IM, Solu-Medrol 125 mg IV, Benadryl 50 mg IV, Pepcid 50 mg IV, and started 1 L LR bolus. Patient reassessed after initial treatment and slightly improved rash and b reathing. Will give additional dose of epinephrine 0.1 mg IV. --Respiratory therapy was consulted and provided albuterol neb treatment. --Patient reassessed multiple times and rash significantly improved as did his work of breathing. Patient notes feeling much better after second dose of epinephrine. --Patient was observed in the emerge from and for more than 4 hours after epinephrine dosing and had no rebound anaphylaxis. He was seen by treating interest, Dr. Roche, who agreed with discontinuing penicillin given potential for allergy to cephalosporins and recommended starting patient on clindamycin which I will prescribe. Patient will be discharged with a burst course of prednisone and was encouraged to use Benadryl over the next couple days he understands the need to switch ant ibiotics and that he is now considered allergic to penicillin and cephalosporins until further testing is performed. Usual customary discharge instructions otherwise reviewed with the patient. HPI General Mode of arrival: ambulatory . Date/Time Provider Initiated Documentation: 12/03/20 08:15 . Limitations to Documentation: no limitations . Information obtained by: patient . HPI Narrative: 50-year-old male with history or he of osteomyelitis of the third toe left foot, diabetes, hypertension, COPD, transferred from PACU with concern for shortness of breath. Patient was having procedure on his foot by podiatry and developed shortness of breath and full body rash. He received a dose of Ancef preprocedurally around 7 AM. Patient has no known allergies. Patient chief complaint of shortness of breath. Shortness breath is severe. Constant. No modifiers. He has associated full body rash and feeling lightheaded. No vomiting. No chest pain. Related Data Home Medications Medication Instructions Recorded Confirmed acetaminophen [Tylenol] 650 mg PO Q4H PRN PRN #0 tab 12/03/19 12/03/20 metformin 1,000 mg PO DAILY #60 tab 12/03/19 12/03/20 albuterol sulfate 90 mcg/actuation 2 puff INHALATION Q6H PRN 09/01/20 12/03/20 aerosol inhaler amitriptyline 100 mg tablet 100 mg PO DAILY 09/01/20 12/03/20 atorvastatin 10 mg tablet 10 mg PO QHS 09/01/20 12/03/20 budesonide-formoterol HFA 80 2 puff INHALATION BID 09/01/20 12/03/20 mcg-4.5 mcg/actuation aerosol inhaler dulaglutide 0.75 mg/0.5 mL 0.75 mg SUBCUT QWEEK 09/01/20 12/03/20 subcutaneous pen injector duloxetine 30 mg capsule,delayed 30 mg PO DAILY 09/01/20 12/03/20 release lisinopril 10 mg tablet 10 mg PO DAILY 09/01/20 12/03/20 clindamycin HCl 300 mg PO TID #21 cap 12/03/20 prednisone 40 mg PO DAILY #8 tab 12/03/20 Previous Rx's Medication Instructions Recorded acetaminophen [Tylenol] 650 mg PO Q4H PRN PRN #0 tab 12/03/19 metformin 1,000 mg PO DAILY #60 tab 12/03/19 clindamycin HCl 300 mg PO TID #21 cap 12/03/20 prednisone 40 mg PO DAILY #8 tab 12/03/20 Allergies Allergy/AdvReac Type Severity Reaction Status Date / Time amoxicillin [From Augmentin] Allergy Unverified 12/03/20 13:14 cefazolin [From Ancef] Allergy Unverified 12/03/20 13:14 Cephalosporins Allergy Unverified 12/03/20 12:34 clavulanic acid Allergy Unverified 12/03/20 13:14 [From Augmentin] Penicillins Allergy Unverified 12/03/20 12:33 General RIVKA: 3 Review of Systems All systems reviewed & are unremarkable except as noted in HPI and below Constitutional Constitutional: Denies fever(s) Cardiovascular Cardiovascular: Reports as per HPI and Reports dyspnea Respiratory Respiratory: Reports as per HPI, Reports dyspnea and Reports wheezing Allergic/Immunologic Allergic/Immunologic: Reports wheezing PFSH Medical History Acute exacerbation of chronic obstructive pulmonary disease (COPD) CAP (community acquired pneumonia) COPD (chronic obstructive pulmonary disease) DJD (degenerative joint disease) GERD (gastroesophageal reflux disease) Hyperlipidemia Hypertension Non-insulin dependent type 2 diabetes mellitus Peripheral neuropathy PVD (peripheral vascular disease) Syncope and collapse Tobacco abuse Ventral hernia Surgical History H/O left knee surgery History of colonoscopy with polypectomy (~11/12/20) 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 History of open reduction and internal fixation (ORIF) procedure LLE S/P hardware removal LLE S/P hernia repair x2 at [facility]- 20 years ago Family History Mother Diabetes Hypertension Father Diabetes Hypertension Cancer lung Paternal Grandmother Diabetes Other Heart disease Social History Smoking/Tobacco Use Status: Current every day Tobacco Type: cigarettes Smoking packs per day: 1.5 Smoking cigarettes per day: 30.0 Years smoked: 20 Smoking pack-years: 30.00 Smoking risk assessment performed?: Yes Alcohol Intake: never Drug use: Never Substance use type: does not use Do you feel safe at home: Yes Do you feel safe in your relationship?: Yes Exam Const General: cooperative and in distress respiratory Nutritional Appearance: average body habitus Orientation: alert and awake HENMT Mouth: moist mucous membranes Throat: posterior oropharynx normal Eyes Conjunctivae: other (Conjunctival injection bilateral) Sclera: normal sclerae Neck Neck: trachea midline and supple Resp Effort & Inspection: labored and tachypneic Auscultation: no rales, no rhonchi and wheezes scattered wheezes Cardio Rate: tachycardic Rhythm: regular rhythm GI Palpation: soft, not firm, no guarding, no masses, not rigid and nontender Skin Rashes: rashes noted (full body erythema) Neuro General: patient alert, patient awake, patient oriented x3 and tone normal Extrem General: no edema Psych Appearance: grossly normal Mental Status: mental status grossly normal Critical Care Time Critical Care Time Critical Care Time: Yes Total Critical Care Time: 40 Attestation: I spent greater than 40 minutes addressing this patient's immediate life threats. Please see MDM section of note. This time was spent engaged in work directly related to the patient's care, exclusive of separate procedures, and failure to initiate these interventions would have likely resulted in clinically significant or life threatening deterioration in the patient's condition.
[2020-12-03] MEDS: diphenhydrAMINE 50 MG/ML VIAL IVP (08:20)
[2020-12-03] MEDS: methylPREDNISolone SUCC 125 MG VIAL IVP (08:22)
[2020-12-03] MEDS: EPINEPHrine 0.3 MG KIT IM (08:25)
[2020-12-03] MEDS: FAMOTIDINE 20 MG/50 ML BAG 200 MG IVPB (08:25)
[2020-12-03] MEDS: Lactated Ringers 1,000 ML 1000 ML IV (08:26)
[2020-12-03] MEDS: Albuterol 2.5 MG/3 ML INH SOLN VIAL UPD (08:34)
[2020-12-03] MEDS: EPINEPHrine 1 MG/10 ML SYR IVP (08:52)
[2020-12-03] MEDS: Nicotine 14 MG/24 HR PATCH TD (10:15)
[2020-12-03] MEDS: Nicotine 2 MG LOZG SUC (11:08)
== END 2020-12-03 12:59 | disposition home or self-care (01) ==
PROVIDERS: Emergency Provider Student in an Organized Health Care Education/Training Program; PCP Nurse Practitioner Family
DX: T88.6XXA Anaphylactic reaction due to adverse effect of correct drug or medicament properly administered, initial encounter (principal); T36.1X5A Adverse effect of cephalosporins and other beta-lactam antibiotics, initial encounter; R06.03 Acute respiratory distress; R21 Rash and other nonspecific skin eruption; Y83.8 Other surgical procedures as the cause of abnormal reaction of the patient, or of later complication, without mention of misadventure at the time of the procedure; Y92.234 Operating room of hospital as the place of occurrence of the external cause; J44.1 Chronic obstructive pulmonary disease with (acute) exacerbation; F17.210 Nicotine dependence, cigarettes, uncomplicated
CPT/HCPCS: 94640; 96361; 96365; 96372; 96375; 99291; J0171; J1200; J2930; J7613

== ENCOUNTER 2021-01-21 12:17 | Day surgery (SDC) | payer MEDICAID, SELFPAY ==
[2021-01-21 12:34] VITALS: BP 149/86; PULSE 99; RESP 20; TEMP 36.2; O2SAT 97
[2021-01-21] MEDS: Lactated Ringers 1,000 ML 80 ML IV (12:54)
[2021-01-21] MEDS: VANCOMYCIN/WATER (PEG) 1 GM/200 ML BAG IVPB (12:54)
--- NOTE | 2021-01-21 14:25 | AMP_PTH ---
PATIENT: Satnam Swan LOC: [facility] U#:[id number] AGE/SX: 50/M ROOM: RE01/21/[address]: Jordin Roche : 1970 BED: DIS: 01/21/2021 SPEC #: [id number] RECD: 01/21/21 17:07 STATUS: DILLON REDustin #: [id number] DARLENE: 01/21/21 14:[address]: Jordin Roche DEPT: Surgical Specimen RECD BY: Aislinn Cuevas ENTERED: 01/21/21 17:07 SP TYPE: Amputation OTHR DR: Crissy Leavitt Tissues: 1 - AMPUTATION FINGERS/TOES(NOT TRAUMA) Procedures: GROSS AND MICRO LEVEL 4 DECALCIFICATION Comments: [id number]
[2021-01-21 14:38] VITALS: BP 142/88; PULSE 95; RESP 18; TEMP 36.3; O2SAT 96
--- NOTE | 2021-01-21 14:40 | W.PM.DSUDISC ---
Discharge Plan Disposition Patient Disposition: HOME Condition: Good Discharge Details Attending Provider: Jordin Roche Primary Care Provider: Crissy Leavitt Home Meds and New Rx's Prescriptions: Continued Trulicity 0.75 mg/0.5 mL pen injector 0.75 mg subcut QWEEK RF: 0 lisinopril 10 mg tablet 10 mg PO DAILY RF: 0 atorvastatin 10 mg tablet 10 mg PO QHS RF: 0 duloxetine 30 mg capsule,delayed release(DR/EC) 30 mg PO DAILY RF: 0 amitriptyline 100 mg tablet 100 mg PO DAILY RF: 0 budesonide-formoterol [Symbicort] 80-4.5 mcg/actuation HFA aerosol inhaler 2 puff inhalation BID RF: 0 albuterol sulfate [ProAir HFA] 90 mcg/actuation HFA aerosol inhaler 2 puff inhalation Q6H PRNRF: 0 prednisone 20 mg tablet 40 mg PO DAILY Qty: 8 RF: 0 acetaminophen [Tylenol] 325 mg Tablet 650 mg PO Q4H PRN PRNQty: 0 RF: 0 metformin 500 mg Tablet Extended Release 24 Hr 1,000 mg PO DAILY Qty: 60 RF: 0 Discharge Instructions Activity:: Elevate Remove Dressings/Wound Care:: Do Not Remove Shower/Bathe:: Cover Diet:: Carb Counting Discharge Orders Discharge Orders: Discharge Order (Routine); Ordered 01/21/21 Ordered By: Jordin Roche DS: Diagnosis Discharge Diagnosis (1) Ulcer of toe due to diabetes: Status: Acute
--- NOTE | 2021-01-21 14:43 | ROE_ITS ---
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 He is being brought to the OR for partial amputation of the left fourth toe. He understands the permanency of the procedure. He understands potential risk and complications pertaining to pain, scarring, infection, failure to thrive potentially requiring additional surger ies. All questions have been answered. Informed consents been obtained. No promises made final outcome of surgery. Procedure Description: Satnam was brought to the operative suite placed in the supine position with a left foot prepped and draped in usual sterile podiatric fashion. Timeout was performed by protocol at the beginning of the case. An esthesia was achieved by utilizing 10 cc 50: 50 mixture 1% lidocaine with epinephrine, 0.5% Marcaine plain. Attention was directed to the left fifth toe the distal aspect of the toe has findings consistent with a dry gangrene. The distal tip of the toe support to the opening of approximately 3 mm which probes to the distal phalanx. Skin flaps were developed over the proximal phalanx going up to the interphalangeal joint the dorsal flap was raised utilizing a 15 scalpel going through the skin fat and severing the extensor tendons at the PIPJ level incision was carried medially laterally and plantarly so as to create a plantar flap. The distal portion of the fourth toe was removed from the operative field. The head of the proximal phalanx looked a little yellowed and with double-action bone cutting forceps I resected the head to about its surgical neck. All rough and bony edges were rasped smooth. Bone was hard at this level there were no findings of sepsis. Copious irrigation was performed. I decided to close the wound in a single layer so as to avoid any retained foreign material and the wound was closed with a near far far near 3-0 nylon suture through its central portion and 2 additional suture stitches thrown medially and laterally. I then interspersed simple interrupted suture of 4-0 nylon between these suture. Good apposition of the skin edges without undue stress noted. Xeroform gauze fluff compression dressings were applied. Satnam left the OR with vital signs stable vascular status intact sharp and sponge counts were correct he will be followed by myself next week in the office.
== END 2021-01-21 15:10 | disposition home or self-care (01) ==
PROVIDERS: PCP Nurse Practitioner Family; Visit Provider Podiatrist
PROC: (CPT 28825; principal; 2021-01-21 14:00)
DX: M86.172 Other acute osteomyelitis, left ankle and foot (principal); E11.621 Type 2 diabetes mellitus with foot ulcer; L97.524 Non-pressure chronic ulcer of other part of left foot with necrosis of bone
CPT/HCPCS: 28825; 88305; 88311

== ENCOUNTER → 2021-06-28 01:33 | Outpatient (CLI) | payer MEDICARE, MEDICAID, SELFPAY ==
--- NOTE | 2021-06-28 | DI.CT_ITS ---
Exam(s) CT CHEST WO EXAM: CT CHEST WO CLINICAL HISTORY: PULMONARY NODULE R91.1 TECHNIQUE: COMPARISON: CT CT ABDOMEN/PELVIS WITH IV ONLY from 04/11/[address] ABDOMEN/PELVIS WITH IV ONLY from 04/11/[address] ABDOMEN PELVIS W from 03/13/[address] ABDOMEN PELVIS W from 03/13/[address] ABD from 06/06/[address] ABD from 06/06/2021 FINDINGS: CT examination of the chest was performed without contrast administration. There are severe pulmonary emphysematous changes with central lobular and subpleural disease and mult iple bilateral apical bullae. There is no pleural effusion. There are multiple bilateral noncalcifi ed rounded pulmonary masses. The largest is a fissural nodule 10 millimeter mean diameter in the ab or fissure on the right at the level of the donny. Multiple additional 8-9 millimeter mean diameter nodules are seen bilaterally. No calcified nodules seen. No mediastinal or hilar adenopathy. Trac heobronchial tree appears intact. Note is made of coronary artery calcification. Images obtained through the upper show unremarkable a ppearance of visualized portions of liver, spleen adrenals, kidneys, and pancreas. IMPRESSION: Multiple noncalcified pulmonary nodules are identified as described above. Please note that these wer e not present on prior CT examination of March 2019. The findings are suspicious for malignancy, either primary or metastatic. PET scan, tissue sampling, or close interval follow-up with [address] recommended. Please correlate clinically. RADIATION DOSE DELIVERED: 732.03mGy.cm Total DLP 17.89mGy CTDIvol RADIATION OPTIMIZATION: All CT scans at this facility use at least one of these dose optimization te chniques: automated exposure control; mA and/or kV adjustment per patient size (includes targeted exa ms where dose is matched to clinical indication); or iterative reconstruction.
== END ==
PROVIDERS: PCP Nurse Practitioner Family; Visit Provider Nurse Practitioner Family
DX: R91.1 Solitary pulmonary nodule (principal)
CPT/HCPCS: 71250

== ENCOUNTER → 2021-07-29 10:11 | Outpatient (BNVA) | payer MEDICARE, MEDICAID, SELFPAY | PROVIDERS: PCP Nurse Practitioner Family; Referring Provider Nurse Practitioner Family; Visit Provider Surgery | DX: R10.33 Periumbilical pain (principal); G89.29 Other chronic pain; R10.13 Epigastric pain; R11.0 Nausea | CPT/HCPCS: 99213; 99214 ==

== ENCOUNTER 2021-09-29 02:00 | Outpatient (CLI) | payer MEDICARE, MEDICAID, SELFPAY ==
--- NOTE | 2021-09-29 13:45 | DI.CT_ITS ---
Exam(s) CT CHEST WO EXAM: CT CHEST WO CLINICAL HISTORY: PULMONARY NODULE, R91.1, 3-MO F/U IMAGING TECHNIQUE: Imaging Protocol: Axial computed tomography images with coronal and sagittal reformatted images were created and reviewed CONTRAST MATERIAL: Intravenous: Omnipaque 350 Contrast volume:structured data in ml. COMPARISON: CT CT ABDOMEN PELVIS W from 03/13/[address] CHEST WO from 06/28/2021 FINDINGS: Tracheobronchial tree: No bronchiectasis or mucous plugging. Mediastinum and Lynette: No dominant adenopathy or fluid collection. Pulmonary parenchyma: Stable 10 millimeter average diameter nodule in the right lower lobe adjacent t o the fissure. There are smaller nodules are also unchanged and peripherally located, also unchanged . No new nodules. No consolidation. No infiltrates. Centrilobular and paraseptal emphysema. Pleura: No effusion or pneumothorax. Heart: The heart is not dilated. coronary artery calcifications are seen. Aorta: Thoracic aorta non-dilated. Minimal atherosclerotic changes. Upper abdomen: Fatty liver. Lymph nodes: Within normal limits. Bones: Prominent disc osteophytes thoracic spine. Soft tissues: Unremarkable. IMPRESSION: Stable appearance of multiple small arm pulmonary nodules, mainly peripheral. The largest nodules pe rifissural in measures 10 millimeters in average diameter. Consider additional three-month follow-up . RADIATION DOSE DELIVERED: 740.12mGy.cm Total DLP DATA REPOSITORY: All CT scans at this facility are submitted to the National Radiology Data Registry (NRDR) Dose Index Registry (DIR) with the [employer] (A[employer]). RADIATION OPTIMIZATION: All CT scans at this facility use at least one of these dose optimization te chniques: automated exposure control; mA and/or kV adjustment per patient size (includes targeted exa ms where dose is matched to clinical indication); or iterative reconstruction.
== END 2021-09-29 02:20 ==
PROVIDERS: PCP Nurse Practitioner Family; Visit Provider Nurse Practitioner Family
DX: R91.1 Solitary pulmonary nodule (principal); R91.8 Other nonspecific abnormal finding of lung field
CPT/HCPCS: 71250

== ENCOUNTER 2022-01-13 16:45 | Outpatient (REF) | payer MEDICARE, MEDICAID, SELFPAY ==
[2022-01-13 12:21] LABS: Source Nasal/Nares
[2022-01-13 16:04] LABS: COVID-19 PCR Negative (Negative)
== END 2022-01-13 16:46 | disposition home or self-care (01) ==
LOC: LBN 16:45
PROVIDERS: PCP Nurse Practitioner Family; Visit Provider Student in an Organized Health Care Education/Training Program
DX: Z20.822 Contact with and (suspected) exposure to COVID-19 (principal); Z01.818 Encounter for other preprocedural examination
CPT/HCPCS: 87635

== ENCOUNTER 2022-01-16 06:09 | Day surgery (SDC) | payer MEDICARE, MEDICAID, SELFPAY ==
[2022-01-16 06:50] VITALS: BP 127/83; PULSE 89; RESP 16; TEMP 36.7; O2SAT 97
--- NOTE | 2022-01-16 07:15 | RT.EKG_ITS ---
APPROVED REPORT Exam: Resting ECG Reason for Exam: chest pain Patient Location: O HR:82 bpm ECG Measurements Heart Rate [address] 161 P 73 QRSd 98 QRS 69 QT 371 T 67 QTc 435 Conclusion Sinus rhythm...normal P axis, V-rate 60- 99
--- NOTE | 2022-01-16 08:16 | CE_ITS ---
Date of service: 01/16/22 Time of Service: 07:15 Event Note: Called by anesthesia as on their pre-op assessment the patient had multiple subacute complaints of chest pains, dyspnea, syncope, parasthesia's and diaphoresis. I went to evaluate the patient who did tell me he passed out once last week and has been having these symptoms for approximately 2 weeks. I discussed with him that it was not safe to proceed with the planned procedure as I had concerns about an undiagnosed cardiac issue. He understood this. I obtained an EKG which did show normal sinus rhythm and was grossly non-ischemic. We discussed plans moving forward, which will include a cardiac stress test to work up his symptoms as well as a [place] [facility] [place] work up the nodules given he is unsafe for bronchoscopy at the moment. He is in agreement with the plan. Discussed with anesthesia, who agrees with plan moving forward. Time Spent with Patient Time spent in critical care(minutes): 20 Time Spent Included: Coordination of care, Chart review, Documenting critically ill care, Time at immediate bedside and Discussing critically ill care with other medical staff
== END 2022-01-16 08:10 | disposition home or self-care (01) ==
LOC: SUR 06:10
PROVIDERS: PCP Nurse Practitioner Family; Visit Provider Student in an Organized Health Care Education/Training Program
DX: R91.1 Solitary pulmonary nodule (principal); Z53.09 Procedure and treatment not carried out because of other contraindication; R07.89 Other chest pain
CPT/HCPCS: 93005; 93010